=== PATIENT | female | born 1955 | race Two or more races ===

== ENCOUNTER 2024-04-17 13:54 | Inpatient (IN) | payer OTHER, MEDICAID ==
[~2024-04-17] VITALS: Ht 157.5 cm; Wt 74.4 kg
[2024-04-17] MEDS: SODIUM CHLORIDE 0.9% 500 ML IVB ONE (15:02)
[2024-04-17] MEDS: ONDANSETRON HCL 4 MG/2 ML VIAL IV ONE (15:27)
[2024-04-17] MEDS: MORPHINE SULFATE 4 MG/ML SYR/VIAL IV ONE (15:28)
[2024-04-17 15:57] LABS: Basophils # (auto) 0 10 ^3/uL (0-0.2); Basophils % (auto) 0.1 % (0.0-2.0); Eosinophils # (auto) 0 10 ^3/uL (0-0.8); Eosinophils % (auto) 0.1 % (0.0-7.0); Hematocrit 37.4 % (36.0-46.0); Hemoglobin 12.3 g/dL (12.2-16.2); Lymphocytes # (auto) 1.8 10 ^3/uL (0.4-5.4); Lymphocytes % (auto) 10.6 % (10.0-50.0); Mean Corpuscular Hemoglobin 29.7 pg (28.0-32.0); Mean Corpuscular Hgb Conc. 32.8 g/dL (32.0-36.0); Mean Corpuscular Volume 90.3 fL (80.0-100.0); Monocytes # (auto) 0.6 10 ^3/uL (0-1.3); Monocytes % (auto) 3.5 % (0.0-12.0); Neutrophils # (auto) 14.2 10 ^3/uL (1.6-8.6); Neutrophils % (auto) 85.7 % (37.0-80.0); Nucleated Red Blood Cells % 0.1 %; Platelet Count (auto) 274 10^3/uL (140-450); Red Blood Cells 4.14 10^6/uL (4.0-5.20); Red Cell Distribution Width 15.9 % (11.8-14.3); White Blood Cell 16.5 10^3/uL (4.4-10.8)
[2024-04-17 16:01] LABS: Chloride 107 mmol/L (98-107); Potassium 3.9 mmol/L (3.5-5.1); Sodium 140 mmol/L (136-145)
[2024-04-17 16:02] LABS: Anion Gap 7 (5-15); Carbon Dioxide 26 mmol/L (20-30)
[2024-04-17 16:02] LABS: Urine Bacteria FEW /hpf (None Seen); Urine Blood Negative /uL (Negative); Urine Clarity Ex.Turbid (Clear); Urine Color Orange (Yellow); Urine Mucus MANY (None Seen); Urine Protein, UAD 1+ (Negative); Urine Specific Gravity 1.037 (1.001-1.035); Urine Urobilinogen 2 mg/dL (Negative); Urine WBC 14 /hpf (0 - 5); Urine pH 5.5 (5.0-9.0)
[2024-04-17 16:03] LABS: Calcium 9.8 mg/dL (8.7-10.4)
[2024-04-17 16:07] LABS: Glucose 151 mg/dL (74-106)
[2024-04-17 16:08] LABS: BUN/Creatinine Ratio 25.6 (10.0-20.0); Blood Urea Nitrogen 22 mg/dL (9-23)
[2024-04-17 17:57] LABS: INR 1.03 (0.9-1.15); Partial Thromboplastin Time 27.5 SEC (24.5-34.5); Prothrombin Time 10.9 sec (9.3-11.8)
[2024-04-17] MEDS: SODIUM CHLORIDE 0.9% 1,000 ML IV ONE (18:22)
[2024-04-17] MEDS: PIPERACILLIN-TAZOB 3.375GM 100 ML IV ONE (18:22)
[2024-04-17] MEDS ORDERED: NITROGLYCERIN 0.4 MG SL TAB SL PRN (20:30)
[2024-04-17] MEDS ORDERED: MORPHINE SULFATE INJ 2 MG/ml SYRG IV PRN (20:30)
[2024-04-17] MEDS ORDERED: DEXTROSE (50%) 50ML SYRG IV PRN (21:30)
[2024-04-17] MEDS: SODIUM CHLORIDE 0.9% 1,000 ML IV SCH (22:03)
[2024-04-18] VITALS (9 sets, daily range): BP systolic 100–141; BP diastolic 48–89; PULSE 70–120; RESP 16–19; TEMP 97.8–100.4; O2SAT 90–93
[2024-04-18] MEDS: ACCU-CHEK COMFORT CURVE STRIP VI SCH ×2 (00:55→17:00)
[2024-04-18] MEDS: PIPERACILLIN-TAZOB 3.375GM 100 ML IV SCH (02:20)
[2024-04-18 04:47] LABS: Basophils # (auto) 0 10 ^3/uL (0-0.2); Basophils % (auto) 0.2 % (0.0-2.0); Eosinophils # (auto) 0.1 10 ^3/uL (0-0.8); Eosinophils % (auto) 0.3 % (0.0-7.0); Hematocrit 38.1 % (36.0-46.0); Hemoglobin 12.3 g/dL (12.2-16.2); Lymphocytes # (auto) 2.2 10 ^3/uL (0.4-5.4); Lymphocytes % (auto) 12.8 % (10.0-50.0); Mean Corpuscular Hemoglobin 29.8 pg (28.0-32.0); Mean Corpuscular Hgb Conc. 32.4 g/dL (32.0-36.0); Monocytes # (auto) 0.8 10 ^3/uL (0-1.3); Monocytes % (auto) 4.5 % (0.0-12.0); Neutrophils # (auto) 14.2 10 ^3/uL (1.6-8.6); Neutrophils % (auto) 82.2 % (37.0-80.0); Nucleated Red Blood Cells % 0.1 %; Platelet Count (auto) 283 10^3/uL (140-450); Red Blood Cells 4.14 10^6/uL (4.0-5.20); Red Cell Distribution Width 16.1 % (11.8-14.3); White Blood Cell 17.2 10^3/uL (4.4-10.8)
[2024-04-18] MEDS ORDERED: LISI40TA16 PO (05:02)
[2024-04-18] MEDS ORDERED: LEVO25TA6 PO (05:03)
[2024-04-18 05:04] LABS: Alanine Aminotransferase 36 U/L (7-40); Albumin 3.7 g/dL (3.2-4.8); Alkaline Phosphatase 79 U/L (46-116); Anion Gap 6 (5-15); Aspartate Aminotransferase 10 U/L (13-40); BUN/Creatinine Ratio 28.3 (10.0-20.0); Blood Urea Nitrogen 30 mg/dL (9-23); Calcium 9.8 mg/dL (8.7-10.4); Carbon Dioxide 27 mmol/L (20-30); Chloride 108 mmol/L (98-107); Glucose 121 mg/dL (74-106); Potassium 4.3 mmol/L (3.5-5.1); Sodium 141 mmol/L (136-145)
[2024-04-18 05:05] LABS: Bilirubin, Total 1.4 mg/dL (0.2-1.0)
[2024-04-18 05:07] LABS: INR 1.09 (0.9-1.15); Prothrombin Time 11.5 sec (9.3-11.8)
[2024-04-18] MEDS: MORPHINE SULFATE INJ 2 MG/ml SYRG IV PRN (05:36)
[2024-04-18] MEDS: PANTOPRAZOLE 40 MG/10 ML VIAL INJ IV SCH (09:31)
[2024-04-18] MEDS ORDERED: TPN PER PHARMACY 0 ML IV SCH (13:30)
[2024-04-18] MEDS ORDERED: DEXTROSE (50%) 50ML SYRG IV SCH (15:15)
[2024-04-18] MEDS: InsuLIN REG 1unit/0.01ml Soln (100units/ml) SC SCH (17:15)
[2024-04-18] MEDS: AMINO ACID INFUSION IN D5W 2,000 ML IV NR (20:09)
[2024-04-19] VITALS (9 sets, daily range): BP systolic 106–142; BP diastolic 48–78; PULSE 90–115; RESP 16–19; TEMP 98–100.6; O2SAT 90–98
[2024-04-19 06:31] LABS: Basophils # (auto) 0.1 10 ^3/uL (0-0.2); Basophils % (auto) 0.5 % (0.0-2.0); Eosinophils # (auto) 0 10 ^3/uL (0-0.8); Eosinophils % (auto) 0.3 % (0.0-7.0); Hematocrit 33.5 % (36.0-46.0); Hemoglobin 10.8 g/dL (12.2-16.2); Lymphocytes # (auto) 1.6 10 ^3/uL (0.4-5.4); Lymphocytes % (auto) 11.1 % (10.0-50.0); Mean Corpuscular Hemoglobin 29.4 pg (28.0-32.0); Mean Corpuscular Hgb Conc. 32.2 g/dL (32.0-36.0); Mean Corpuscular Volume 91.3 fL (80.0-100.0); Monocytes # (auto) 0.7 10 ^3/uL (0-1.3); Monocytes % (auto) 5.2 % (0.0-12.0); Neutrophils # (auto) 11.8 10 ^3/uL (1.6-8.6); Neutrophils % (auto) 82.9 % (37.0-80.0); Platelet Count (auto) 243 10^3/uL (140-450); Red Blood Cells 3.67 10^6/uL (4.0-5.20); Red Cell Distribution Width 15.8 % (11.8-14.3); White Blood Cell 14.2 10^3/uL (4.4-10.8)
[2024-04-19 06:43] LABS: Triglycerides 209 mg/dL (< 150)
[2024-04-19 06:44] LABS: Alanine Aminotransferase 30 U/L (7-40); Albumin 3.2 g/dL (3.2-4.8); Alkaline Phosphatase 96 U/L (46-116); Anion Gap 7 (5-15); Aspartate Aminotransferase 18 U/L (13-40); Bilirubin, Total 1.4 mg/dL (0.2-1.0); Blood Urea Nitrogen 25 mg/dL (9-23); Calcium 8.9 mg/dL (8.5-10.1); Carbon Dioxide 26 mmol/L (20-30); Chloride 108 mmol/L (98-107); Cholesterol 127 mg/dL (< 200); Glucose 142 mg/dL (74-106); HDL Cholesterol 20 mg/dL (40-59); LDL Cholesterol 61 mg/dL (< 100); Magnesium 1.9 mg/dL (1.6-2.6); Potassium 3.5 mmol/L (3.5-5.1); Sodium 141 mmol/L (136-145); Total Protein 5.2 g/dL (5.7-8.2)
[2024-04-19] MEDS: POTASSIUM PHOSPHATE 22 MEQ in SODIUM CHL 0.9% 100 ML IV ONE (13:46)
[2024-04-19] MEDS: PPN PER PHARMACY IV NR (20:10)
[2024-04-20] VITALS (10 sets, daily range): BP systolic 110–150; BP diastolic 58–82; PULSE 88–99; RESP 18–21; TEMP 97.8–99.3; O2SAT 95–99
[2024-04-20 07:05] LABS: Basophils # (auto) 0 10 ^3/uL (0-0.2); Basophils % (auto) 0.2 % (0.0-2.0); Eosinophils # (auto) 0.1 10 ^3/uL (0-0.8); Eosinophils % (auto) 0.5 % (0.0-7.0); Hematocrit 30.8 % (36.0-46.0); Hemoglobin 10.3 g/dL (12.2-16.2); Lymphocytes % (auto) 9.3 % (10.0-50.0); Mean Corpuscular Hemoglobin 30.4 pg (28.0-32.0); Mean Corpuscular Hgb Conc. 33.5 g/dL (32.0-36.0); Mean Corpuscular Volume 90.9 fL (80.0-100.0); Monocytes # (auto) 0.7 10 ^3/uL (0-1.3); Monocytes % (auto) 6.6 % (0.0-12.0); Neutrophils # (auto) 8.9 10 ^3/uL (1.6-8.6); Neutrophils % (auto) 83.4 % (37.0-80.0); Platelet Count (auto) 231 10^3/uL (140-450); Red Blood Cells 3.39 10^6/uL (4.0-5.20); Red Cell Distribution Width 15.5 % (11.8-14.3); White Blood Cell 10.7 10^3/uL (4.4-10.8)
[2024-04-20 07:23] LABS: Alanine Aminotransferase 28 U/L (7-40); Albumin 3.1 g/dL (3.2-4.8); Alkaline Phosphatase 114 U/L (46-116); Anion Gap 3 (5-15); Aspartate Aminotransferase 17 U/L (13-40); BUN/Creatinine Ratio 20.8 (10.0-20.0); Bilirubin, Total 0.9 mg/dL (0.2-1.0); Blood Urea Nitrogen 15 mg/dL (9-23); Calcium 8.8 mg/dL (8.5-10.1); Carbon Dioxide 29 mmol/L (20-30); Chloride 105 mmol/L (98-107); Glucose 158 mg/dL (74-106); Magnesium 1.7 mg/dL (1.6-2.6); Phosphorus 2.1 mg/dL (2.4-5.1); Potassium 3.3 mmol/L (3.5-5.1); Sodium 137 mmol/L (136-145); Total Protein 5.2 g/dL (5.7-8.2)
[2024-04-20] MEDS: IOHEXOL 300 MG/ML 100ML BOTTLE IJ ONE (12:52)
[2024-04-20] MEDS: POTASSIUM PHOSPHATE 22 MEQ in SODIUM CHL 0.9% 100 ML IV ONE (14:57)
[2024-04-20] MEDS: PPN PER PHARMACY IV NR (23:28)
[2024-04-21] VITALS (9 sets, daily range): BP systolic 119–146; BP diastolic 65–74; PULSE 71–102; RESP 18–21; TEMP 97.9–101.5; O2SAT 95–98
[2024-04-21 05:15] LABS: Hematocrit 30.5 % (36.0-46.0); Hemoglobin 10.1 g/dL (12.2-16.2); Mean Corpuscular Volume 90.7 fL (80.0-100.0); Platelet Count (auto) 249 10^3/uL (140-450); Red Blood Cells 3.36 10^6/uL (4.0-5.20); Red Cell Distribution Width 15.8 % (11.8-14.3)
[2024-04-21 05:16] LABS: Alanine Aminotransferase 25 U/L (7-40); Albumin 3.2 g/dL (3.2-4.8); Alkaline Phosphatase 113 U/L (46-116); Anion Gap 4 (5-15); Aspartate Aminotransferase 17 U/L (13-40); BUN/Creatinine Ratio 18.3 (10.0-20.0); Bilirubin, Total 0.7 mg/dL (0.2-1.0); Blood Urea Nitrogen 11 mg/dL (9-23); Calcium 8.7 mg/dL (8.5-10.1); Carbon Dioxide 30 mmol/L (20-30); Chloride 101 mmol/L (98-107); Glucose 141 mg/dL (74-106); Magnesium 1.6 mg/dL (1.6-2.6); Phosphorus 2.5 mg/dL (2.4-5.1); Potassium 3.1 mmol/L (3.5-5.1); Sodium 135 mmol/L (136-145); Total Protein 5.3 g/dL (5.7-8.2)
[2024-04-21 05:19] LABS: Basophils % (manual) 0 (0.0-2.0); Blast Cells 0; Eosinophils % (manual) 0 (0-7); Metamyelocytes % 0; Myelocytes % 0; Promyelocytes % 0; Reactive Lymphocytes 0
[2024-04-21 09:16] LABS: Band Neutrophils % (manual) 5; Lymphocytes % (manual) 19 (10.0-50.0); Monocytes % (manual) 1 (0-12); Platelet Estimate Adequate
[2024-04-21] MEDS: POTASSIUM PHOSPHATE 22 MEQ in SODIUM CHL 0.9% 100 ML IV ONE (11:38)
[2024-04-21] MEDS: LIDOCAINE 1% (LOCAL ANESTH.) PF 5ml SDV ID ONE (16:00)
[2024-04-21] MEDS: PPN PER PHARMACY IV NR (20:46)
[2024-04-21] MEDS: SODIUM CHLOR 0.9% PF (SALINE LOCK) 10ML VIAL/SYR IV SCH (21:57)
[2024-04-22] VITALS (8 sets, daily range): BP systolic 115–137; BP diastolic 62–87; PULSE 68–106; RESP 16–23; TEMP 97.9–101.5; O2SAT 95–98
[2024-04-22 06:50] LABS: Alanine Aminotransferase 29 U/L (7-40); Alkaline Phosphatase 107 U/L (46-116); Anion Gap 9 (5-15); BUN/Creatinine Ratio 22.4 (10.0-20.0); Blood Urea Nitrogen 13 mg/dL (9-23); Calcium 8.4 mg/dL (8.7-10.4); Carbon Dioxide 31 mmol/L (20-30); Chloride 97 mmol/L (98-107); Glucose 163 mg/dL (74-106); Magnesium 1.7 mg/dL (1.6-2.6); Potassium 2.9 mmol/L (3.5-5.1); Sodium 137 mmol/L (136-145)
[2024-04-22 06:51] LABS: Aspartate Aminotransferase 23 U/L (13-40); Phosphorus 2.5 mg/dL (2.4-5.1)
[2024-04-22 06:52] LABS: Bilirubin, Total 0.6 mg/dL (0.2-1.0); Total Protein 5.1 g/dL (5.7-8.2)
[2024-04-22] MEDS: POTASSIUM CHL 20MEQ/100ML 100 ML IV SCH (12:55)
[2024-04-22] MEDS: POTASSIUM PHOSPHATE 22 MEQ in SODIUM CHL 0.9% 100 ML IV ONE (17:41)
[2024-04-22] MEDS: SODIUM CHLORIDE 0.9% 1,000 ML IV SCH (20:00)
[2024-04-22] MEDS: PPN PER PHARMACY IV NR (20:13)
[2024-04-23] VITALS (9 sets, daily range): BP systolic 112–145; BP diastolic 53–80; PULSE 73–100; RESP 16–20; TEMP 97–101.9; O2SAT 93–100
[2024-04-23 06:16] LABS: Calcium 8.3 mg/dL (8.5-10.1)
[2024-04-23 06:21] LABS: Magnesium 1.9 mg/dL (1.6-2.6)
[2024-04-23 06:23] LABS: Albumin 3.1 g/dL (3.2-4.8); Phosphorus 1.9 mg/dL (2.4-5.1)
[2024-04-23 08:16] LABS: BUN/Creatinine Ratio 17.5 (10.0-20.0)
[2024-04-23] MEDS: POTASSIUM CHL 20MEQ/100ML 100 ML IV ONE ×2 (11:55→14:27)
[2024-04-23] MEDS: POTASSIUM PHOSPHATE 22 MEQ in SODIUM CHL 0.9% 100 ML IV ONE (15:46)
[2024-04-23] MEDS: PPN PER PHARMACY IV NR (20:00)
[2024-04-24] VITALS (7 sets, daily range): BP systolic 113–134; BP diastolic 56–72; PULSE 58–157; RESP 17–20; TEMP 98.9–100.1; O2SAT 96–100
[2024-04-24] MEDS: dilTIAZem 25 MG/5 ML VIAL IV ONE (04:04)
[2024-04-24 07:37] LABS: Alanine Aminotransferase 23 U/L (7-40); Alkaline Phosphatase 100 U/L (46-116); Anion Gap 4 (5-15); Calcium 8.1 mg/dL (8.5-10.1); Carbon Dioxide 31 mmol/L (20-30); Chloride 98 mmol/L (98-107); Potassium 3.7 mmol/L (3.5-5.1); Sodium 133 mmol/L (136-145)
[2024-04-24 07:38] LABS: Aspartate Aminotransferase 21 U/L (13-40); BUN/Creatinine Ratio 16.7 (10.0-20.0); Blood Urea Nitrogen 9 mg/dL (9-23); Glucose 172 mg/dL (74-106)
[2024-04-24 07:39] LABS: Albumin 3.1 g/dL (3.2-4.8); Magnesium 1.9 mg/dL (1.6-2.6)
[2024-04-24 07:40] LABS: Bilirubin, Total 0.4 mg/dL (0.2-1.0); Phosphorus 1.7 mg/dL (2.4-5.1); Total Protein 5.1 g/dL (5.7-8.2)
[2024-04-24] MEDS: IOHEXOL 300 MG/ML 100ML BOTTLE IJ ONE (08:36)
[2024-04-24] MEDS: SODIUM PHOSPHATES 24 MEQ in SODIUM CHL 0.9% 100 ML IV ONE (11:33)
[2024-04-24] MEDS: METOPROLOL TARTRATE 1MG/1ML-5ML VIAL IV PRN (13:12)
[2024-04-24] MEDS: TPN PER PHARMACY IV NR (21:14)
[2024-04-25] VITALS (8 sets, daily range): BP systolic 107–156; BP diastolic 40–69; PULSE 88–111; RESP 18–21; TEMP 98–99; O2SAT 97–98
[2024-04-25 07:48] LABS: Alanine Aminotransferase 21 U/L (7-40); Alkaline Phosphatase 94 U/L (46-116); Anion Gap 7 (5-15); Aspartate Aminotransferase 20 U/L (13-40); BUN/Creatinine Ratio 16.7 (10.0-20.0); Bilirubin, Total 0.4 mg/dL (0.2-1.0); Blood Urea Nitrogen 10 mg/dL (9-23); Carbon Dioxide 31 mmol/L (20-30); Chloride 98 mmol/L (98-107); Glucose 173 mg/dL (74-106); Magnesium 1.8 mg/dL (1.6-2.6); Phosphorus 1.7 mg/dL (2.4-5.1); Potassium 3.7 mmol/L (3.5-5.1); Sodium 136 mmol/L (136-145); Total Protein 5.2 g/dL (5.7-8.2)
[2024-04-25] MEDS: POTASSIUM PHOSPHATE 22 MEQ in SODIUM CHL 0.9% 100 ML IV ONE (11:31)
[2024-04-25] MEDS: TPN PER PHARMACY IV NR (21:12)
[2024-04-25] MEDS: ENOXAPARIN SOD 100 MG/1 ML SYRINGE SC SCH (23:05)
[2024-04-26] VITALS (8 sets, daily range): BP systolic 116–147; BP diastolic 51–70; PULSE 86–120; RESP 19–22; TEMP 98.1–102.3; O2SAT 95–99
[2024-04-26] MEDS: ACETAMINOPHEN 325 MG TAB PO PRN (01:11)
[2024-04-26 08:04] LABS: Alanine Aminotransferase 19 U/L (7-40); Alkaline Phosphatase 94 U/L (46-116); Anion Gap 1 (5-15); BUN/Creatinine Ratio 15.5 (10.0-20.0); Blood Urea Nitrogen 9 mg/dL (9-23); Carbon Dioxide 31 mmol/L (20-30); Chloride 102 mmol/L (98-107); Glucose 199 mg/dL (74-106); Magnesium 2.1 mg/dL (1.6-2.6); Potassium 3.7 mmol/L (3.5-5.1); Sodium 134 mmol/L (136-145)
[2024-04-26 08:06] LABS: Albumin 3.1 g/dL (3.2-4.8); Aspartate Aminotransferase 19 U/L (13-40); Bilirubin, Total 0.5 mg/dL (0.2-1.0); Phosphorus 2.4 mg/dL (2.4-5.1); Total Protein 5.2 g/dL (5.7-8.2)
[2024-04-26] MEDS: OMNIPAQUE 12mg/ml 500ml ORAL SOLUTION PO ONE (08:09)
[2024-04-26] MEDS: IOHEXOL 300 MG/ML 100ML BOTTLE IJ ONE ×2 (10:08→13:08)
[2024-04-26] MEDS: SODIUM PHOSPHATES 20 MEQ in SODIUM CHL 0.9% 100 ML IV ONE (10:56)
[2024-04-26] MEDS: TPN PER PHARMACY IV NR (20:00)
[2024-04-27] VITALS (8 sets, daily range): BP systolic 99–159; BP diastolic 52–79; PULSE 74–120; RESP 18–22; TEMP 98.4–101.9; O2SAT 94–95
[2024-04-27 07:10] LABS: Alanine Aminotransferase 21 U/L (7-40); Albumin 3.5 g/dL (3.2-4.8); Alkaline Phosphatase 101 U/L (46-116); Anion Gap 6 (5-15); Aspartate Aminotransferase 20 U/L (13-40); BUN/Creatinine Ratio 14.5 (10.0-20.0); Bilirubin, Total 0.5 mg/dL (0.2-1.0); Blood Urea Nitrogen 9 mg/dL (9-23); Calcium 8.5 mg/dL (8.5-10.1); Carbon Dioxide 26 mmol/L (20-30); Chloride 102 mmol/L (98-107); Glucose 178 mg/dL (74-106); Magnesium 2.1 mg/dL (1.6-2.6); Phosphorus 2.6 mg/dL (2.4-5.1); Potassium 3.7 mmol/L (3.5-5.1); Sodium 134 mmol/L (136-145); Total Protein 5.7 g/dL (5.7-8.2); Triglycerides 161 mg/dL (< 150)
[2024-04-27 10:47] LABS: Hemoglobin 9.9 g/dL (12.2-16.2)
[2024-04-27 10:50] LABS: Hematocrit 30.8 % (36.0-46.0); Mean Corpuscular Hemoglobin 29.2 pg (28.0-32.0); Mean Corpuscular Hgb Conc. 32.3 g/dL (32.0-36.0); Mean Corpuscular Volume 90.5 fL (80.0-100.0); Platelet Count (auto) 504 10^3/uL (140-450); Red Blood Cells 3.41 10^6/uL (4.0-5.20); Red Cell Distribution Width 16.1 % (11.8-14.3)
[2024-04-27 11:04] LABS: Basophils % (manual) 0 (0.0-2.0); Blast Cells 0; Eosinophils % (manual) 0 (0-7); Myelocytes % 0; Promyelocytes % 0; Reactive Lymphocytes 0
[2024-04-27 11:27] LABS: Band Neutrophils % (manual) 1; Lymphocytes % (manual) 12 (10.0-50.0); Metamyelocytes % 1; Monocytes % (manual) 6 (0-12); Platelet Estimate Increased
[2024-04-27 11:28] LABS: RBC Morphology Normal
[2024-04-27] MEDS: OMNIPAQUE 12mg/ml 500ml ORAL SOLUTION PO ONE (13:55)
[2024-04-27] MEDS ORDERED: TPN PER PHARMACY IV NR (20:00)
[2024-04-27] MEDS: TPN PER PHARMACY IV NR (20:32)
[2024-04-28] VITALS (8 sets, daily range): BP systolic 112–187; BP diastolic 53–90; PULSE 73–108; RESP 18–20; TEMP 98.7–100.4; O2SAT 91–97
[2024-04-28 04:40] LABS: Alanine Aminotransferase 23 U/L (7-40); Albumin 3.3 g/dL (3.2-4.8); Alkaline Phosphatase 100 U/L (46-116); Anion Gap 6 (5-15); Aspartate Aminotransferase 38 U/L (13-40); BUN/Creatinine Ratio 14.5 (10.0-20.0); Blood Urea Nitrogen 8 mg/dL (9-23); Carbon Dioxide 23 mmol/L (20-30); Chloride 106 mmol/L (98-107); Glucose 162 mg/dL (74-106); Magnesium 2.2 mg/dL (1.6-2.6); Potassium 4.3 mmol/L (3.5-5.1); Sodium 135 mmol/L (136-145)
[2024-04-28 04:41] LABS: Bilirubin, Total 0.4 mg/dL (0.2-1.0); Phosphorus 2.3 mg/dL (2.4-5.1); Total Protein 5.7 g/dL (5.7-8.2)
[2024-04-28 04:42] LABS: INR 1.09 (0.9-1.15); Prothrombin Time 11.5 sec (9.3-11.8)
[2024-04-28] MEDS: MIDAZOLAM HCL 2MG/2ML 2ml VIAL (1mg/ml) ONE (09:10)
[2024-04-28] MEDS: fentaNYL CITRATE 100 MCG/2 ML VL ONE (09:10)
[2024-04-28] MEDS: LIDOCAINE 2%HCL (LOCAL ANESTH.) INJ 10ml MDV ONE (09:19)
[2024-04-28] MEDS: IOHEXOL 300 MG/ML 100ML BOTTLE IJ ONE (09:21)
[2024-04-28] MEDS: SODIUM PHOSPHATES 20 MEQ in SODIUM CHL 0.9% 100 ML IV ONE (11:13)
[2024-04-28] MEDS: TPN PER PHARMACY IV NR (20:44)
[2024-04-29] VITALS (8 sets, daily range): BP systolic 105–128; BP diastolic 53–73; PULSE 94–103; RESP 16–20; TEMP 98.2–98.9; O2SAT 94–97
[2024-04-29 06:26] LABS: Alanine Aminotransferase 26 U/L (7-40); Alkaline Phosphatase 96 U/L (46-116); Anion Gap 5 (5-15); BUN/Creatinine Ratio 17.5 (10.0-20.0); Blood Urea Nitrogen 10 mg/dL (9-23); Calcium 8.1 mg/dL (8.5-10.1); Carbon Dioxide 29 mmol/L (20-30); Chloride 104 mmol/L (98-107); Glucose 175 mg/dL (74-106); Magnesium 2.2 mg/dL (1.6-2.6); Sodium 138 mmol/L (136-145)
[2024-04-29 06:28] LABS: Albumin 3.1 g/dL (3.2-4.8); Aspartate Aminotransferase 34 U/L (13-40); Bilirubin, Total 0.3 mg/dL (0.2-1.0); Phosphorus 2.5 mg/dL (2.4-5.1); Total Protein 5.3 g/dL (5.7-8.2)
[2024-04-29] MEDS: TPN PER PHARMACY IV NR (20:20)
[2024-04-30] VITALS (8 sets, daily range): BP systolic 117–156; BP diastolic 47–80; PULSE 86–102; RESP 19–22; TEMP 97.7–98.8; O2SAT 96–100
[2024-04-30 09:55] LABS: Chloride 107 mmol/L (98-107); Potassium 4.1 mmol/L (3.5-5.1); Sodium 138 mmol/L (136-145)
[2024-04-30 09:58] LABS: Anion Gap 1 (5-15); Calcium 8.3 mg/dL (8.5-10.1); Carbon Dioxide 30 mmol/L (20-30)
[2024-04-30 10:03] LABS: Alkaline Phosphatase 103 U/L (46-116); Blood Urea Nitrogen 10 mg/dL (9-23); Glucose 145 mg/dL (74-106); Magnesium 2.1 mg/dL (1.6-2.6)
[2024-04-30 10:04] LABS: Alanine Aminotransferase 23 U/L (7-40)
[2024-04-30 10:05] LABS: Albumin 3.1 g/dL (3.2-4.8); Aspartate Aminotransferase 27 U/L (13-40); Bilirubin, Total 0.2 mg/dL (0.2-1.0); Phosphorus 2.9 mg/dL (2.4-5.1); Total Protein 5.3 g/dL (5.7-8.2)
[2024-04-30] MEDS: TPN PER PHARMACY IV NR (19:58)
[2024-05-01] VITALS (8 sets, daily range): BP systolic 119–150; BP diastolic 53–74; PULSE 99–109; RESP 17–20; TEMP 97.9–101.9; O2SAT 93–96
[2024-05-01 07:20] LABS: Hemoglobin 8.6 g/dL (12.2-16.2)
[2024-05-01 07:24] LABS: Hematocrit 26.1 % (36.0-46.0); Mean Corpuscular Hgb Conc. 33.1 g/dL (32.0-36.0); Mean Corpuscular Volume 87.9 fL (80.0-100.0); Platelet Count (auto) 729 10^3/uL (140-450); Red Blood Cells 2.97 10^6/uL (4.0-5.20); Red Cell Distribution Width 15.9 % (11.8-14.3); White Blood Cell 14.4 10^3/uL (4.4-10.8)
[2024-05-01 07:37] LABS: Basophils % (manual) 0 (0.0-2.0); Blast Cells 0; Eosinophils % (manual) 0 (0-7); Myelocytes % 0; Promyelocytes % 0; Reactive Lymphocytes 0
[2024-05-01 07:55] LABS: Alanine Aminotransferase 21 U/L (7-40); Albumin 3.2 g/dL (3.2-4.8); Alkaline Phosphatase 127 U/L (46-116); Anion Gap 5 (5-15); Aspartate Aminotransferase 29 U/L (13-40); BUN/Creatinine Ratio 19.6 (10.0-20.0); Bilirubin, Total 0.2 mg/dL (0.2-1.0); Blood Urea Nitrogen 9 mg/dL (9-23); Calcium 8.5 mg/dL (8.5-10.1); Carbon Dioxide 29 mmol/L (20-30); Chloride 103 mmol/L (98-107); Glucose 131 mg/dL (74-106); Magnesium 1.9 mg/dL (1.6-2.6); Phosphorus 3.7 mg/dL (2.4-5.1); Potassium 4.2 mmol/L (3.5-5.1); Sodium 137 mmol/L (136-145); Total Protein 5.5 g/dL (5.7-8.2)
[2024-05-01 08:21] LABS: Lymphocytes % (manual) 14 (10.0-50.0); Metamyelocytes % 1; Monocytes % (manual) 8 (0-12)
[2024-05-01 08:22] LABS: Band Neutrophils % (manual) 6
[2024-05-01 08:23] LABS: Anisocytosis Slight; Platelet Estimate Increased
[2024-05-01 08:24] LABS: Large Platelets FEW
[2024-05-01] MEDS: PIPERACILLIN-TAZOB 3.375GM 100 ML IV SCH (14:31)
[2024-05-01] MEDS: TPN PER PHARMACY IV NR (20:01)
[2024-05-02] VITALS (8 sets, daily range): BP systolic 100–146; BP diastolic 40–68; PULSE 84–116; RESP 17–20; TEMP 98.6–100.1; O2SAT 93–97
[2024-05-02 07:12] LABS: Alanine Aminotransferase 21 U/L (7-40); Albumin 3.3 g/dL (3.2-4.8); Alkaline Phosphatase 130 U/L (46-116); Anion Gap 2 (5-15); Aspartate Aminotransferase 26 U/L (13-40); BUN/Creatinine Ratio 17.7 (10.0-20.0); Bilirubin, Total 0.4 mg/dL (0.2-1.0); Blood Urea Nitrogen 11 mg/dL (9-23); Calcium 9.2 mg/dL (8.7-10.4); Carbon Dioxide 32 mmol/L (20-30); Chloride 101 mmol/L (98-107); Glucose 138 mg/dL (74-106); Magnesium 1.9 mg/dL (1.6-2.6); Phosphorus 3.7 mg/dL (2.4-5.1); Potassium 4.4 mmol/L (3.5-5.1); Sodium 135 mmol/L (136-145)
[2024-05-02] MEDS: TPN PER PHARMACY IV NR (20:37)
[2024-05-03] VITALS (8 sets, daily range): BP systolic 102–146; BP diastolic 51–75; PULSE 93–108; RESP 16–21; TEMP 98.5–99.8; O2SAT 95–98
[2024-05-03 06:38] LABS: Anion Gap 4 (5-15); Carbon Dioxide 29 mmol/L (20-30); Chloride 104 mmol/L (98-107); Potassium 4.2 mmol/L (3.5-5.1); Sodium 137 mmol/L (136-145)
[2024-05-03 06:44] LABS: Blood Urea Nitrogen 11 mg/dL (9-23); Glucose 138 mg/dL (74-106)
[2024-05-03 06:48] LABS: Mean Corpuscular Volume 88.9 fL (80.0-100.0)
[2024-05-03 06:50] LABS: Hematocrit 26.7 % (36.0-46.0); Hemoglobin 9.1 g/dL (12.2-16.2); Mean Corpuscular Hemoglobin 30.2 pg (28.0-32.0); Red Blood Cells 3.01 10^6/uL (4.0-5.20); Red Cell Distribution Width 16.3 % (11.8-14.3); White Blood Cell 17.6 10^3/uL (4.4-10.8)
[2024-05-03 06:57] LABS: Platelet Count (auto) 766 10^3/uL (140-450)
[2024-05-03 06:58] LABS: Basophils % (manual) 0 (0.0-2.0); Blast Cells 0; Metamyelocytes % 0; Myelocytes % 0; Promyelocytes % 0; Reactive Lymphocytes 0
[2024-05-03 08:14] LABS: Band Neutrophils % (manual) 10; Eosinophils % (manual) 1 (0-7); Lymphocytes % (manual) 15 (10.0-50.0); Monocytes % (manual) 6 (0-12)
[2024-05-03 08:15] LABS: Platelet Estimate Markedly Increased
[2024-05-03] MEDS: TPN PER PHARMACY IV NR (20:58)
[2024-05-04] VITALS (8 sets, daily range): BP systolic 106–143; BP diastolic 60–77; PULSE 92–120; RESP 18–20; TEMP 97.8–100.2; O2SAT 94–98
[2024-05-04 06:30] LABS: Chloride 105 mmol/L (98-107); Potassium 4.2 mmol/L (3.5-5.1); Sodium 139 mmol/L (136-145)
[2024-05-04 06:34] LABS: % Iron Saturation 9.8 % (15-50); Carbon Dioxide 29 mmol/L (20-30)
[2024-05-04 06:35] LABS: Calcium 8.9 mg/dL (8.5-10.1)
[2024-05-04 06:39] LABS: Glucose 119 mg/dL (74-106)
[2024-05-04 06:40] LABS: Alkaline Phosphatase 124 U/L (46-116); BUN/Creatinine Ratio 21.7 (10.0-20.0); Blood Urea Nitrogen 13 mg/dL (9-23); Triglycerides 225 mg/dL (< 150)
[2024-05-04 06:41] LABS: Alanine Aminotransferase 17 U/L (7-40); Albumin 3.3 g/dL (3.2-4.8); Aspartate Aminotransferase 21 U/L (13-40)
[2024-05-04 06:42] LABS: Bilirubin, Total 0.3 mg/dL (0.2-1.0); Phosphorus 3.3 mg/dL (2.4-5.1); Total Protein 5.9 g/dL (5.7-8.2)
[2024-05-04 06:47] LABS: Anion Gap 5 (5-15)
[2024-05-04 11:06] LABS: Red Blood Cells 3.04 10^6/uL (4.0-5.20)
[2024-05-04 11:09] LABS: Hematocrit 26.6 % (36.0-46.0); Hemoglobin 8.7 g/dL (12.2-16.2); Mean Corpuscular Hemoglobin 28.5 pg (28.0-32.0); Mean Corpuscular Hgb Conc. 32.5 g/dL (32.0-36.0); Mean Corpuscular Volume 87.7 fL (80.0-100.0); Red Cell Distribution Width 16.2 % (11.8-14.3); White Blood Cell 14.8 10^3/uL (4.4-10.8)
[2024-05-04 11:21] LABS: Basophils % (manual) 0 (0.0-2.0); Blast Cells 0; Eosinophils % (manual) 0 (0-7); Platelet Count (auto) 792 10^3/uL (140-450); Promyelocytes % 0; Reactive Lymphocytes 0
[2024-05-04 11:25] LABS: Anion Gap 6 (5-15); Calcium 8.9 mg/dL (8.5-10.1); Carbon Dioxide 28 mmol/L (20-30); Chloride 103 mmol/L (98-107); Potassium 3.9 mmol/L (3.5-5.1); Sodium 137 mmol/L (136-145)
[2024-05-04 11:31] LABS: BUN/Creatinine Ratio 22.8 (10.0-20.0); Blood Urea Nitrogen 13 mg/dL (9-23); Glucose 138 mg/dL (74-106)
[2024-05-04 12:29] LABS: Band Neutrophils % (manual) 15; Lymphocytes % (manual) 11 (10.0-50.0); Metamyelocytes % 3; Monocytes % (manual) 11 (0-12); Myelocytes % 2; Platelet Estimate Markedly Increased
[2024-05-04] MEDS: GASTROGRAFIN 30 ML SOL ONE (15:26)
[2024-05-04 19:09] LABS: Hematocrit 27.4 % (36.0-46.0); Hemoglobin 8.8 g/dL (12.2-16.2); Mean Corpuscular Hemoglobin 28.1 pg (28.0-32.0); Mean Corpuscular Hgb Conc. 32.3 g/dL (32.0-36.0); Mean Corpuscular Volume 87.2 fL (80.0-100.0); Red Blood Cells 3.14 10^6/uL (4.0-5.20); Red Cell Distribution Width 15.9 % (11.8-14.3); White Blood Cell 18.3 10^3/uL (4.4-10.8)
[2024-05-04 19:12] LABS: Chloride 104 mmol/L (98-107); Potassium 4.1 mmol/L (3.5-5.1); Sodium 136 mmol/L (136-145)
[2024-05-04 19:13] LABS: Anion Gap 6 (5-15); Carbon Dioxide 26 mmol/L (20-30)
[2024-05-04 19:14] LABS: Calcium 9.2 mg/dL (8.7-10.4)
[2024-05-04 19:17] LABS: Platelet Count (auto) 859 10^3/uL (140-450)
[2024-05-04 19:18] LABS: Basophils % (manual) 0 (0.0-2.0); Blast Cells 0; Blood Urea Nitrogen 14 mg/dL (9-23); Eosinophils % (manual) 0 (0-7); Glucose 130 mg/dL (74-106); Promyelocytes % 0; Reactive Lymphocytes 0
[2024-05-04] MEDS: TPN PER PHARMACY IV NR (20:30)
[2024-05-04 20:32] LABS: Band Neutrophils % (manual) 20; Lymphocytes % (manual) 10 (10.0-50.0); Metamyelocytes % 2; Monocytes % (manual) 7 (0-12); Myelocytes % 2; Platelet Estimate Markedly Increased
[2024-05-05] VITALS (8 sets, daily range): BP systolic 119–138; BP diastolic 56–84; PULSE 90–113; RESP 18–20; TEMP 98.4–99.6; O2SAT 90–98
[2024-05-05 06:37] LABS: Alanine Aminotransferase 16 U/L (7-40); Albumin 3.3 g/dL (3.2-4.8); Alkaline Phosphatase 129 U/L (46-116); Anion Gap 5 (5-15); Blood Urea Nitrogen 13 mg/dL (9-23); Calcium 9.1 mg/dL (8.7-10.4); Carbon Dioxide 28 mmol/L (20-30); Chloride 102 mmol/L (98-107); Glucose 130 mg/dL (74-106); Magnesium 1.9 mg/dL (1.6-2.6); Potassium 4.2 mmol/L (3.5-5.1); Sodium 135 mmol/L (136-145)
[2024-05-05 06:38] LABS: Bilirubin, Total 0.4 mg/dL (0.2-1.0); Phosphorus 3.7 mg/dL (2.4-5.1)
[2024-05-05 06:39] LABS: Total Protein 6.2 g/dL (5.7-8.2)
[2024-05-05 07:08] LABS: Aspartate Aminotransferase 21 U/L (13-40)
[2024-05-05] MEDS: DOCUSATE SOD 100 MG CAP PO PRN (09:47)
[2024-05-05] MEDS: GASTROGRAFIN 120 ML SOL ONE (13:41)
[2024-05-05] MEDS: ONDANSETRON HCL 4 MG/2 ML VIAL IV PRN ×2 (14:47→19:11)
[2024-05-05] MEDS: TPN PER PHARMACY IV NR (20:45)
[2024-05-06] VITALS (9 sets, daily range): BP systolic 105–143; BP diastolic 55–85; PULSE 58–102; RESP 16–19; TEMP 97.6–99.5; O2SAT 95–98
[2024-05-06 07:45] LABS: Alanine Aminotransferase 16 U/L (7-40); Alkaline Phosphatase 125 U/L (46-116); Anion Gap 5 (5-15); BUN/Creatinine Ratio 28.3 (10.0-20.0); Blood Urea Nitrogen 17 mg/dL (9-23); Calcium 9.1 mg/dL (8.5-10.1); Carbon Dioxide 31 mmol/L (20-30); Chloride 102 mmol/L (98-107); Glucose 108 mg/dL (74-106); Magnesium 2.1 mg/dL (1.6-2.6); Potassium 4.1 mmol/L (3.5-5.1); Sodium 138 mmol/L (136-145)
[2024-05-06 07:46] LABS: Albumin 3.4 g/dL (3.2-4.8); Aspartate Aminotransferase 18 U/L (13-40); Phosphorus 3.8 mg/dL (2.4-5.1)
[2024-05-06 07:47] LABS: Bilirubin, Total 0.3 mg/dL (0.2-1.0); Total Protein 6.2 g/dL (5.7-8.2)
[2024-05-06] MEDS: TPN PER PHARMACY IV NR (19:44)
[2024-05-07] VITALS (9 sets, daily range): BP systolic 96–137; BP diastolic 58–72; PULSE 75–116; RESP 16–20; TEMP 98.3–99.4; O2SAT 95–98
[2024-05-07 05:53] LABS: Hematocrit 28.8 % (36.0-46.0); Mean Corpuscular Hemoglobin 28.2 pg (28.0-32.0); White Blood Cell 16.3 10^3/uL (4.4-10.8)
[2024-05-07 05:54] LABS: Hemoglobin 9.4 g/dL (12.2-16.2); Mean Corpuscular Hgb Conc. 32.6 g/dL (32.0-36.0); Mean Corpuscular Volume 86.6 fL (80.0-100.0); Red Blood Cells 3.33 10^6/uL (4.0-5.20); Red Cell Distribution Width 16.5 % (11.8-14.3)
[2024-05-07 06:31] LABS: Alanine Aminotransferase 15 U/L (7-40); Albumin 3.5 g/dL (3.2-4.8); Alkaline Phosphatase 127 U/L (46-116); Anion Gap 4 (5-15); Aspartate Aminotransferase 17 U/L (13-40); BUN/Creatinine Ratio 31.7 (10.0-20.0); Blood Urea Nitrogen 20 mg/dL (9-23); Calcium 8.9 mg/dL (8.5-10.1); Carbon Dioxide 30 mmol/L (20-30); Chloride 103 mmol/L (98-107); Glucose 131 mg/dL (74-106); Magnesium 2.1 mg/dL (1.6-2.6); Sodium 137 mmol/L (136-145)
[2024-05-07 06:32] LABS: Bilirubin, Total 0.3 mg/dL (0.2-1.0); Phosphorus 3.5 mg/dL (2.4-5.1); Total Protein 6.5 g/dL (5.7-8.2)
[2024-05-07 06:52] LABS: Platelet Count (auto) 797 10^3/uL (140-450)
[2024-05-07 06:53] LABS: Basophils % (manual) 0 (0.0-2.0); Blast Cells 0; Metamyelocytes % 0; Myelocytes % 0; Promyelocytes % 0; Reactive Lymphocytes 0
[2024-05-07 08:01] LABS: Band Neutrophils % (manual) 6; Eosinophils % (manual) 1 (0-7); Lymphocytes % (manual) 12 (10.0-50.0); Monocytes % (manual) 4 (0-12); Platelet Estimate Markedly Increased
[2024-05-07 10:43] LABS: INR 0.98 (0.9-1.15); Prothrombin Time 10.4 sec (9.3-11.8)
[2024-05-07] MEDS: TPN PER PHARMACY IV NR (19:32)
[2024-05-08] VITALS (38 sets, daily range): BP systolic 83–152; BP diastolic 8–81; PULSE 93–124; RESP 14–19; TEMP 98.6–101.3; O2SAT 91–100
[2024-05-08 06:34] LABS: Alanine Aminotransferase 15 U/L (7-40); Alkaline Phosphatase 112 U/L (46-116); Anion Gap 6 (5-15); BUN/Creatinine Ratio 34.6 (10.0-20.0); Blood Urea Nitrogen 18 mg/dL (9-23); Calcium 8.8 mg/dL (8.7-10.4); Carbon Dioxide 27 mmol/L (20-30); Chloride 106 mmol/L (98-107); Glucose 117 mg/dL (74-106); Potassium 4.4 mmol/L (3.5-5.1); Sodium 139 mmol/L (136-145)
[2024-05-08 06:35] LABS: Albumin 3.2 g/dL (3.2-4.8); Aspartate Aminotransferase 17 U/L (13-40)
[2024-05-08 06:36] LABS: Bilirubin, Total 0.3 mg/dL (0.2-1.0); Phosphorus 3.5 mg/dL (2.4-5.1)
[2024-05-08] MEDS ORDERED: fentaNYL CITRATE 100 MCG/2 ML VL ONE (09:08)
[2024-05-08] MEDS ORDERED: HYDROmorphone HCL 2 MG/ML VL/or syr ONE (09:08)
[2024-05-08] MEDS ORDERED: MIDAZOLAM HCL 2MG/2ML 2ml VIAL (1mg/ml) ONE (09:08)
[2024-05-08] MEDS ORDERED: ePHEDrine SULFATE 50 MG/ML AMP ONE (09:09)
[2024-05-08] MEDS ORDERED: GLYCOPYRROLATE 0.2 MG/ML 1ML VIAL ONE (09:09)
[2024-05-08] MEDS ORDERED: PHENYLEPHRINE HCL 10 MG/ML VL ONE (09:09)
[2024-05-08] MEDS ORDERED: ONDANSETRON HCL 4 MG/2 ML VIAL ONE (09:09)
[2024-05-08] MEDS ORDERED: ROCURONIUM 10MG/ML 10ML VIAL IV ONE (09:09)
[2024-05-08] MEDS ORDERED: LIDOCAINE 2% (LOCAL ANESTH.) PF 5ml SDV ONE (09:09)
[2024-05-08] MEDS ORDERED: KETAMINE 50mg/ML 1ml syringe ONE (09:09)
[2024-05-08] MEDS ORDERED: DexAMETHasone SOD PHOS 10MG/1ML VIAL INJ ONE (09:09)
[2024-05-08] MEDS ORDERED: ETOMIDATE (2MG/ML) 20ML VIAL IV ONE (09:48)
[2024-05-08] MEDS: MIDAZOLAM DRIP 50 mg/50mL 50 ML IV ONE (11:50)
[2024-05-08] MEDS: NOREPINEPHRINE 8 MG/250ML KIT 250 ML IV ONE (11:51)
[2024-05-08] MEDS ORDERED: HYDROmorphone HCL 2 MG/ML VL/or syr IV PRN (12:00)
[2024-05-08] MEDS: ACCU-CHEK COMFORT CURVE STRIP VI ONE (12:00)
[2024-05-08] MEDS ORDERED: fentaNYL CITRATE 100 MCG/2 ML VL IV PRN (12:00)
[2024-05-08] MEDS ORDERED: MIDAZOLAM HCL 2MG/2ML 2ml VIAL (1mg/ml) IV PRN (12:00)
[2024-05-08] MEDS: NOREPINEPHRINE 8 MG/250ML KIT 250 ML IV SCH (12:00)
[2024-05-08 15:06] LABS: Hemoglobin 11.9 g/dL (12.2-16.2); Mean Corpuscular Volume 89.8 fL (80.0-100.0)
[2024-05-08 15:09] LABS: Hematocrit 36.6 % (36.0-46.0); Mean Corpuscular Hemoglobin 29.3 pg (28.0-32.0); Mean Corpuscular Hgb Conc. 32.6 g/dL (32.0-36.0); Platelet Count (auto) 724 10^3/uL (140-450); Red Blood Cells 4.07 10^6/uL (4.0-5.20); Red Cell Distribution Width 16.2 % (11.8-14.3); White Blood Cell 19.8 10^3/uL (4.4-10.8)
[2024-05-08 15:23] LABS: Basophils % (manual) 0 (0.0-2.0); Blast Cells 0; Eosinophils % (manual) 0 (0-7); Metamyelocytes % 0; Myelocytes % 0; Promyelocytes % 0; Reactive Lymphocytes 0
[2024-05-08 15:29] LABS: Alanine Aminotransferase 23 U/L (7-40); Alkaline Phosphatase 122 U/L (46-116); Anion Gap 6 (5-15); Aspartate Aminotransferase 37 U/L (13-40); BUN/Creatinine Ratio 35.3 (10.0-20.0); Blood Urea Nitrogen 18 mg/dL (9-23); Calcium 8.4 mg/dL (8.5-10.1); Carbon Dioxide 24 mmol/L (20-30); Chloride 107 mmol/L (98-107); Glucose 183 mg/dL (74-106); Potassium 4.9 mmol/L (3.5-5.1); Sodium 137 mmol/L (136-145)
[2024-05-08 15:30] LABS: Albumin 3.1 g/dL (3.2-4.8); Bilirubin, Total 0.7 mg/dL (0.2-1.0); Total Protein 5.6 g/dL (5.7-8.2)
[2024-05-08] MEDS ORDERED: PROPOFOL 10 MG/ML 100ML BOTTLE IV ONE (16:00)
[2024-05-08 16:28] LABS: INR 0.98 (0.9-1.15); Prothrombin Time 10.4 sec (9.3-11.8)
[2024-05-08 16:30] LABS: Band Neutrophils % (manual) 10; Lymphocytes % (manual) 21 (10.0-50.0); Monocytes % (manual) 9 (0-12)
[2024-05-08 16:31] LABS: Platelet Estimate Increased
[2024-05-08] MEDS: MIDAZOLAM DRIP 50 mg/50mL 50 ML IV SCH (17:43)
[2024-05-08] MEDS: fentaNYL Drip 2500mCg/250mlNS 250 ML IV SCH (17:44)
[2024-05-08] MEDS: PIPERACILLIN-TAZOB 3.375GM 100 ML IV SCH (18:07)
[2024-05-08 18:34] LABS: Base Excess -2.7 mmol/L (-2.0-2.0)
[2024-05-08] MEDS ORDERED: ACETAMINOPHEN IV 1000 MG/100ML (10MG/ML) IV PRN (20:45)
[2024-05-08] MEDS: TPN PER PHARMACY IV NR (21:05)
[2024-05-09] VITALS (98 sets, daily range): BP systolic 93–137; BP diastolic 36–75; PULSE 92–112; RESP 14–22; TEMP 97.7–101.5; O2SAT 91–99
[2024-05-09 04:22] LABS: Alanine Aminotransferase 20 U/L (7-40); Albumin 2.8 g/dL (3.2-4.8); Alkaline Phosphatase 101 U/L (46-116); Calcium 8.3 mg/dL (8.7-10.4); Carbon Dioxide 25 mmol/L (20-30); Chloride 104 mmol/L (98-107); Glucose 260 mg/dL (74-106)
[2024-05-09 04:23] LABS: Anion Gap 6 (5-15); Aspartate Aminotransferase 19 U/L (13-40); BUN/Creatinine Ratio 41.9 (10.0-20.0); Bilirubin, Total 0.4 mg/dL (0.2-1.0); Blood Urea Nitrogen 18 mg/dL (9-23); Magnesium 1.8 mg/dL (1.6-2.6); Phosphorus 2.6 mg/dL (2.4-5.1); Potassium 4.6 mmol/L (3.5-5.1); Sodium 135 mmol/L (136-145); Total Protein 5.4 g/dL (5.7-8.2)
[2024-05-09] MEDS ORDERED: ROCURONIUM 10MG/ML 10ML VIAL IV ONE (07:08)
[2024-05-09] MEDS ORDERED: HYDROmorphone HCL 2 MG/ML VL/or syr ONE (07:08)
[2024-05-09] MEDS ORDERED: KETAMINE 50mg/ML 1ml syringe ONE (09:59)
[2024-05-09 14:27] LABS: Base Excess -2.2 mmol/L (-2.0-2.0)
[2024-05-09] MEDS ORDERED: HYDROCORTISONE SOD SUCC 100 MG/2ML INJ VIAL IV ONE (14:37)
[2024-05-09] MEDS: TPN PER PHARMACY IV NR (20:16)
[2024-05-10] VITALS (108 sets, daily range): BP systolic 83–129; BP diastolic 36–59; PULSE 95–104; RESP 12–23; TEMP 99.3–100.4; O2SAT 98–100
[2024-05-10 03:31] LABS: Hematocrit 32.3 % (36.0-46.0); Hemoglobin 10.5 g/dL (12.2-16.2); Mean Corpuscular Hemoglobin 28.9 pg (28.0-32.0); Mean Corpuscular Hgb Conc. 32.5 g/dL (32.0-36.0); Mean Corpuscular Volume 89.1 fL (80.0-100.0); Platelet Count (auto) 527 10^3/uL (140-450); Red Blood Cells 3.63 10^6/uL (4.0-5.20); Red Cell Distribution Width 16.6 % (11.8-14.3)
[2024-05-10 03:42] LABS: Alanine Aminotransferase 13 U/L (7-40); Albumin 2.5 g/dL (3.2-4.8); Alkaline Phosphatase 82 U/L (46-116); Anion Gap 3 (5-15); Aspartate Aminotransferase 11 U/L (13-40); BUN/Creatinine Ratio 41.2 (10.0-20.0); Blood Urea Nitrogen 21 mg/dL (9-23); Calcium 7.9 mg/dL (8.7-10.4); Carbon Dioxide 26 mmol/L (20-30); Chloride 105 mmol/L (98-107); Glucose 172 mg/dL (74-106); Magnesium 1.9 mg/dL (1.6-2.6); Potassium 4.4 mmol/L (3.5-5.1); Sodium 134 mmol/L (136-145)
[2024-05-10 03:43] LABS: Bilirubin, Total 0.3 mg/dL (0.2-1.0); Phosphorus 3.1 mg/dL (2.4-5.1); Total Protein 4.6 g/dL (5.7-8.2)
[2024-05-10 03:46] LABS: Band Neutrophils % (manual) 0; Basophils % (manual) 0 (0.0-2.0); Blast Cells 0; Eosinophils % (manual) 0 (0-7); Metamyelocytes % 0; Myelocytes % 0; Promyelocytes % 0; Reactive Lymphocytes 0
[2024-05-10 04:21] LABS: Lymphocytes % (manual) 4 (10.0-50.0); Monocytes % (manual) 7 (0-12); Platelet Estimate Increased; Smudge Cells 1 /100 WBC
[2024-05-10] MEDS ORDERED: VANCOMYCIN PER PHARMACY 0 MG IV SCH (13:45)
[2024-05-10] MEDS: VANCOMYCIN 1GM/200ML 200 ML IV ONE (15:14)
[2024-05-10] MEDS: CEFEPIME 2GM/50ML NS 50 ML IV SCH (16:50)
[2024-05-10] MEDS: TPN PER PHARMACY IV NR (20:24)
[2024-05-11] VITALS (109 sets, daily range): BP systolic 88–133; BP diastolic 37–68; PULSE 91–124; RESP 14–29; TEMP 97.9–100.6; O2SAT 96–100
[2024-05-11 04:00] LABS: Basophils # (auto) 0.1 10 ^3/uL (0-0.2); Basophils % (auto) 0.4 % (0.0-2.0); Eosinophils # (auto) 0.2 10 ^3/uL (0-0.8); Eosinophils % (auto) 0.8 % (0.0-7.0); Hematocrit 27.6 % (36.0-46.0); Lymphocytes # (auto) 1.4 10 ^3/uL (0.4-5.4); Lymphocytes % (auto) 5.1 % (10.0-50.0); Mean Corpuscular Hgb Conc. 32.6 g/dL (32.0-36.0); Mean Corpuscular Volume 88.9 fL (80.0-100.0); Monocytes # (auto) 1.6 10 ^3/uL (0-1.3); Monocytes % (auto) 5.8 % (0.0-12.0); Neutrophils # (auto) 24.5 10 ^3/uL (1.6-8.6); Neutrophils % (auto) 87.9 % (37.0-80.0); Nucleated Red Blood Cells % 0.1 %; Platelet Count (auto) 492 10^3/uL (140-450); Red Cell Distribution Width 17.1 % (11.8-14.3); White Blood Cell 27.9 10^3/uL (4.4-10.8)
[2024-05-11 04:21] LABS: Alanine Aminotransferase 17 U/L (7-40); Albumin 2.5 g/dL (3.2-4.8); Alkaline Phosphatase 150 U/L (46-116); Anion Gap 5 (5-15); Aspartate Aminotransferase 25 U/L (13-40); BUN/Creatinine Ratio 43.8 (10.0-20.0); Blood Urea Nitrogen 21 mg/dL (9-23); Calcium 8.1 mg/dL (8.7-10.4); Carbon Dioxide 26 mmol/L (20-30); Chloride 105 mmol/L (98-107); Glucose 134 mg/dL (74-106); Magnesium 1.9 mg/dL (1.6-2.6); Phosphorus 3.2 mg/dL (2.4-5.1); Potassium 4.1 mmol/L (3.5-5.1); Sodium 136 mmol/L (136-145)
[2024-05-11 04:22] LABS: Bilirubin, Total 0.3 mg/dL (0.2-1.0); Total Protein 4.7 g/dL (5.7-8.2)
[2024-05-11] MEDS: VANCOMYCIN 1GM/200ML 200 ML IV SCH (04:59)
[2024-05-11 07:42] LABS: Base Excess -2.4 mmol/L (-2.0-2.0)
[2024-05-11] MEDS: ACETAMINOPHEN 650 MG RECT SUPP PR PRN (15:16)
[2024-05-11] MEDS: TPN PER PHARMACY IV NR (20:09)
[2024-05-12] VITALS (112 sets, daily range): BP systolic 89–142; BP diastolic 34–111; PULSE 90–112; RESP 11–27; TEMP 96.4–100.9; O2SAT 9–100
[2024-05-12 02:24] LABS: Hematocrit 27.1 % (36.0-46.0); Hemoglobin 8.6 g/dL (12.2-16.2); Mean Corpuscular Hemoglobin 28.7 pg (28.0-32.0); Mean Corpuscular Hgb Conc. 31.8 g/dL (32.0-36.0); Mean Corpuscular Volume 90.1 fL (80.0-100.0); Platelet Count (auto) 471 10^3/uL (140-450); Red Blood Cells 3.01 10^6/uL (4.0-5.20); Red Cell Distribution Width 16.8 % (11.8-14.3); White Blood Cell 23.1 10^3/uL (4.4-10.8)
[2024-05-12 02:26] LABS: Basophils % (manual) 0 (0.0-2.0); Blast Cells 0; Eosinophils % (manual) 0 (0-7); Metamyelocytes % 0; Myelocytes % 0; Promyelocytes % 0; Reactive Lymphocytes 0
[2024-05-12 02:32] LABS: Alanine Aminotransferase 54 U/L (7-40); Albumin 2.5 g/dL (3.2-4.8); Alkaline Phosphatase 255 U/L (46-116); Anion Gap 7 (5-15); Aspartate Aminotransferase 72 U/L (13-40); BUN/Creatinine Ratio 41.7 (10.0-20.0); Bilirubin, Total 0.5 mg/dL (0.2-1.0); Blood Urea Nitrogen 15 mg/dL (9-23); Calcium 7.8 mg/dL (8.7-10.4); Carbon Dioxide 22 mmol/L (20-30); Chloride 107 mmol/L (98-107); Glucose 123 mg/dL (74-106); Magnesium 1.7 mg/dL (1.6-2.6); Phosphorus 3.5 mg/dL (2.4-5.1); Sodium 136 mmol/L (136-145); Total Protein 4.6 g/dL (5.7-8.2)
[2024-05-12 03:13] LABS: Triglycerides 224 mg/dL (< 150)
[2024-05-12 04:06] LABS: Band Neutrophils % (manual) 7; Lymphocytes % (manual) 4 (10.0-50.0); Monocytes % (manual) 11 (0-12); Platelet Estimate Increased
[2024-05-12 07:32] LABS: Base Excess -0.4 mmol/L (-2.0-2.0)
[2024-05-12] MEDS: PANTOPRAZOLE 40 MG/10 ML VIAL INJ IV SCH (10:00)
[2024-05-12] MEDS: ENOXAPARIN SOD 40 MG/0.4 ML SYRINGE SC SCH (10:09)
[2024-05-12] MEDS: TPN PER PHARMACY IV NR (20:29)
[2024-05-13] VITALS (107 sets, daily range): BP systolic 76–128; BP diastolic 23–94; PULSE 74–115; RESP 13–29; TEMP 78.3–101.1; O2SAT 96–100
[2024-05-13] MEDS: VANCOMYCIN 1GM/200ML 200 ML IV SCH (00:23)
[2024-05-13 04:22] LABS: Hematocrit 27.3 % (36.0-46.0); Hemoglobin 8.9 g/dL (12.2-16.2); Mean Corpuscular Hemoglobin 28.7 pg (28.0-32.0); Mean Corpuscular Hgb Conc. 32.5 g/dL (32.0-36.0); Mean Corpuscular Volume 88.5 fL (80.0-100.0); Platelet Count (auto) 496 10^3/uL (140-450); Red Blood Cells 3.08 10^6/uL (4.0-5.20); Red Cell Distribution Width 16.8 % (11.8-14.3)
[2024-05-13 04:25] LABS: Basophils % (manual) 0 (0.0-2.0); Blast Cells 0; Metamyelocytes % 0; Myelocytes % 0; Promyelocytes % 0; Reactive Lymphocytes 0; White Blood Cell 30.4 10^3/uL (4.4-10.8)
[2024-05-13 04:36] LABS: Band Neutrophils % (manual) 6; Eosinophils % (manual) 5 (0-7); Lymphocytes % (manual) 7 (10.0-50.0); Monocytes % (manual) 8 (0-12)
[2024-05-13 04:37] LABS: Platelet Estimate Increased
[2024-05-13 04:40] LABS: Alanine Aminotransferase 52 U/L (7-40); Albumin 2.7 g/dL (3.2-4.8); Alkaline Phosphatase 284 U/L (46-116); Anion Gap 7 (5-15); Aspartate Aminotransferase 35 U/L (13-40); BUN/Creatinine Ratio 51.5 (10.0-20.0); Bilirubin, Total 0.6 mg/dL (0.2-1.0); Blood Urea Nitrogen 17 mg/dL (9-23); Calcium 8.1 mg/dL (8.5-10.1); Carbon Dioxide 23 mmol/L (20-30); Chloride 105 mmol/L (98-107); Glucose 103 mg/dL (74-106); Magnesium 1.7 mg/dL (1.6-2.6); Phosphorus 3.5 mg/dL (2.4-5.1); Sodium 135 mmol/L (136-145); Total Protein 4.8 g/dL (5.7-8.2)
[2024-05-13 07:33] LABS: Base Excess -0.8 mmol/L (-2.0-2.0)
[2024-05-13] MEDS: SODIUM CHLORIDE 0.9% 1,000 ML IV ONE (11:12)
[2024-05-13] MEDS: SOD CHL 0.45% WITH 20MEQ KCL 1,000 ML IV SCH (12:03)
[2024-05-13] MEDS: MAGNESIUM SULFATE 1GM/100ML 100 ML IV ONE (12:16)
[2024-05-13] MEDS: TPN PER PHARMACY IV NR (22:35)
[2024-05-14] VITALS (111 sets, daily range): BP systolic 68–159; BP diastolic 30–108; PULSE 72–104; RESP 12–28; TEMP 96.6–101.3; O2SAT 93–100
[2024-05-14 04:18] LABS: Mean Corpuscular Hemoglobin 28.4 pg (28.0-32.0); White Blood Cell 27.3 10^3/uL (4.4-10.8)
[2024-05-14 04:20] LABS: Hematocrit 24.6 % (36.0-46.0); Hemoglobin 7.8 g/dL (12.2-16.2); Mean Corpuscular Hgb Conc. 31.7 g/dL (32.0-36.0); Mean Corpuscular Volume 89.6 fL (80.0-100.0); Platelet Count (auto) 464 10^3/uL (140-450); Red Blood Cells 2.74 10^6/uL (4.0-5.20); Red Cell Distribution Width 17.2 % (11.8-14.3)
[2024-05-14 04:25] LABS: Basophils % (manual) 0 (0.0-2.0); Blast Cells 0; Metamyelocytes % 0; Myelocytes % 0; Promyelocytes % 0; Reactive Lymphocytes 0
[2024-05-14 04:37] LABS: Band Neutrophils % (manual) 10; Eosinophils % (manual) 2 (0-7); Lymphocytes % (manual) 13 (10.0-50.0); Monocytes % (manual) 7 (0-12); Platelet Estimate Increased
[2024-05-14 04:45] LABS: Alanine Aminotransferase 31 U/L (7-40); Albumin 2.5 g/dL (3.2-4.8); Alkaline Phosphatase 228 U/L (46-116); Anion Gap 4 (5-15); Aspartate Aminotransferase 19 U/L (13-40); BUN/Creatinine Ratio 47.1 (10.0-20.0); Blood Urea Nitrogen 16 mg/dL (9-23); Carbon Dioxide 22 mmol/L (20-30); Chloride 107 mmol/L (98-107); Glucose 125 mg/dL (74-106); Potassium 4.3 mmol/L (3.5-5.1); Sodium 133 mmol/L (136-145)
[2024-05-14 04:46] LABS: Bilirubin, Total 0.4 mg/dL (0.2-1.0); Phosphorus 3.1 mg/dL (2.4-5.1); Total Protein 4.7 g/dL (5.7-8.2)
[2024-05-14 07:06] LABS: Base Excess -4.4 mmol/L (-2.0-2.0)
[2024-05-14] MEDS: TPN PER PHARMACY IV NR (21:41)
[2024-05-15] VITALS (106 sets, daily range): BP systolic 71–132; BP diastolic 27–82; PULSE 77–103; RESP 12–27; TEMP 90.7–101.1; O2SAT 92–100
[2024-05-15 04:46] LABS: White Blood Cell 21.8 10^3/uL (4.4-10.8)
[2024-05-15 04:48] LABS: Hematocrit 24.8 % (36.0-46.0); Mean Corpuscular Hgb Conc. 32.2 g/dL (32.0-36.0); Mean Corpuscular Volume 89.9 fL (80.0-100.0); Platelet Count (auto) 454 10^3/uL (140-450); Red Blood Cells 2.76 10^6/uL (4.0-5.20); Red Cell Distribution Width 17.4 % (11.8-14.3)
[2024-05-15 05:00] LABS: Basophils % (manual) 0 (0.0-2.0); Blast Cells 0; Myelocytes % 0; Promyelocytes % 0; Reactive Lymphocytes 0
[2024-05-15 05:03] LABS: Alanine Aminotransferase 22 U/L (7-40); Albumin 2.5 g/dL (3.2-4.8); Alkaline Phosphatase 235 U/L (46-116); Anion Gap 4 (5-15); Aspartate Aminotransferase 18 U/L (13-40); BUN/Creatinine Ratio 34.5 (10.0-20.0); Blood Urea Nitrogen 10 mg/dL (9-23); Calcium 7.9 mg/dL (8.7-10.4); Carbon Dioxide 20 mmol/L (20-30); Chloride 106 mmol/L (98-107); Glucose 111 mg/dL (74-106); Magnesium 1.8 mg/dL (1.6-2.6); Potassium 4.8 mmol/L (3.5-5.1); Sodium 130 mmol/L (136-145)
[2024-05-15 05:04] LABS: Bilirubin, Total 0.3 mg/dL (0.2-1.0); Total Protein 4.6 g/dL (5.7-8.2)
[2024-05-15 05:40] LABS: Anisocytosis Slight; Band Neutrophils % (manual) 10; Eosinophils % (manual) 2 (0-7); Lymphocytes % (manual) 6 (10.0-50.0); Metamyelocytes % 1; Monocytes % (manual) 9 (0-12); Platelet Estimate Increased
[2024-05-15 06:54] LABS: Base Excess -3.5 mmol/L (-2.0-2.0)
[2024-05-15] MEDS: FLUCONAZOLE 200MG/100ML 100 ML IV SCH ×2 (13:00→16:16)
[2024-05-15] MEDS: SODIUM CHLORIDE 0.9% 1,000 ML IV SCH (13:18)
[2024-05-15] MEDS: METOCLOPRAMIDE HCL 5MG/ml INJ 2ml VIAL IV ONE (13:18)
[2024-05-15] MEDS: METOCLOPRAMIDE HCL 5MG/ml INJ 2ml VIAL IV SCH (13:31)
[2024-05-15] MEDS ORDERED: FLUCONAZOLE 200MG/100ML 100 ML IV SCH (16:00)
[2024-05-15] MEDS: TPN PER PHARMACY IV NR (21:18)
[2024-05-16] VITALS (104 sets, daily range): BP systolic 87–147; BP diastolic 24–81; PULSE 60–97; RESP 9–26; TEMP 95.5–100.9; O2SAT 68–100
[2024-05-16 04:11] LABS: Hematocrit 24.8 % (36.0-46.0)
[2024-05-16 04:13] LABS: Mean Corpuscular Hemoglobin 28.8 pg (28.0-32.0); Mean Corpuscular Hgb Conc. 32.2 g/dL (32.0-36.0); Mean Corpuscular Volume 89.2 fL (80.0-100.0); Platelet Count (auto) 464 10^3/uL (140-450); Red Blood Cells 2.78 10^6/uL (4.0-5.20); Red Cell Distribution Width 17.1 % (11.8-14.3); White Blood Cell 25.3 10^3/uL (4.4-10.8)
[2024-05-16 04:19] LABS: Alanine Aminotransferase 16 U/L (7-40); Albumin 2.5 g/dL (3.2-4.8); Alkaline Phosphatase 245 U/L (46-116); Anion Gap 5 (5-15); Aspartate Aminotransferase 15 U/L (13-40); BUN/Creatinine Ratio 36.7 (10.0-20.0); Blood Urea Nitrogen 11 mg/dL (9-23); Carbon Dioxide 21 mmol/L (20-30); Chloride 105 mmol/L (98-107); Glucose 140 mg/dL (74-106); Magnesium 1.8 mg/dL (1.6-2.6); Potassium 3.6 mmol/L (3.5-5.1); Sodium 131 mmol/L (136-145)
[2024-05-16 04:20] LABS: Bilirubin, Total 0.3 mg/dL (0.2-1.0); Phosphorus 3.3 mg/dL (2.4-5.1); Total Protein 4.6 g/dL (5.7-8.2)
[2024-05-16 04:30] LABS: Basophils % (manual) 0 (0.0-2.0); Blast Cells 0; Promyelocytes % 0; Reactive Lymphocytes 0
[2024-05-16 06:49] LABS: Band Neutrophils % (manual) 13; Eosinophils % (manual) 3 (0-7); Lymphocytes % (manual) 6 (10.0-50.0); Metamyelocytes % 2; Monocytes % (manual) 9 (0-12); Myelocytes % 1; Platelet Estimate Increased
[2024-05-16 06:50] LABS: Anisocytosis Slight; Large Platelets FEW; Stomatocytes Few
[2024-05-16 07:26] LABS: Base Excess -3.8 mmol/L (-2.0-2.0)
[2024-05-16] MEDS: FUROSEMIDE 20 MG/2 ML VIAL IV ONE (12:44)
[2024-05-16] MEDS: MEROPENEM 1GM IVPB 50 ML IV ONE (12:45)
[2024-05-16] MEDS: MEROPENEM 1GM IVPB 50 ML IV SCH (14:43)
[2024-05-16] MEDS: TPN PER PHARMACY IV NR (20:26)
[2024-05-17] VITALS (107 sets, daily range): BP systolic 90–142; BP diastolic 19–91; PULSE 68–97; RESP 12–23; TEMP 98.2–101.7; O2SAT 92–100
[2024-05-17 04:09] LABS: Hematocrit 24.1 % (36.0-46.0); Hemoglobin 7.7 g/dL (12.2-16.2); Mean Corpuscular Hemoglobin 28.1 pg (28.0-32.0); Mean Corpuscular Hgb Conc. 31.8 g/dL (32.0-36.0); Mean Corpuscular Volume 88.4 fL (80.0-100.0); Platelet Count (auto) 437 10^3/uL (140-450); Red Blood Cells 2.72 10^6/uL (4.0-5.20); Red Cell Distribution Width 17.6 % (11.8-14.3); White Blood Cell 21.7 10^3/uL (4.4-10.8)
[2024-05-17 04:12] LABS: Basophils % (manual) 0 (0.0-2.0); Blast Cells 0; Myelocytes % 0; Promyelocytes % 0; Reactive Lymphocytes 0
[2024-05-17 04:30] LABS: Alanine Aminotransferase 14 U/L (7-40); Albumin 2.3 g/dL (3.2-4.8); Alkaline Phosphatase 238 U/L (46-116); Anion Gap 6 (5-15); Aspartate Aminotransferase 16 U/L (13-40); Blood Urea Nitrogen 14 mg/dL (9-23); Calcium 8.5 mg/dL (8.7-10.4); Carbon Dioxide 24 mmol/L (20-30); Chloride 106 mmol/L (98-107); Glucose 144 mg/dL (74-106); Potassium 3.2 mmol/L (3.5-5.1); Sodium 136 mmol/L (136-145)
[2024-05-17 04:31] LABS: Bilirubin, Total 0.3 mg/dL (0.2-1.0); Phosphorus 3.9 mg/dL (2.4-5.1); Total Protein 4.4 g/dL (5.7-8.2)
[2024-05-17 05:07] LABS: Triglycerides 236 mg/dL (< 150)
[2024-05-17] MEDS: POTASSIUM CHL 20MEQ/100ML 100 ML IV ONE (05:45)
[2024-05-17 08:11] LABS: Base Excess -0.6 mmol/L (-2.0-2.0)
[2024-05-17 09:15] LABS: Band Neutrophils % (manual) 15; Eosinophils % (manual) 1 (0-7); Lymphocytes % (manual) 5 (10.0-50.0); Metamyelocytes % 1; Monocytes % (manual) 5 (0-12); Platelet Estimate Adequate
[2024-05-17] MEDS: GASTROGRAFIN 120 ML SOL ONE (11:11)
[2024-05-17] MEDS ORDERED: POTASSIUM CHL 20MEQ/100ML 100 ML IV ONE (11:45)
[2024-05-17] MEDS: FUROSEMIDE 20 MG/2 ML VIAL IV ONE (12:49)
[2024-05-17] MEDS: POTASSIUM CHL 20MEQ/100ML 100 ML IV SCH (12:50)
[2024-05-17 14:40] LABS: Hemoglobin 8.9 g/dL (12.2-16.2)
[2024-05-17 14:42] LABS: Hematocrit 27.2 % (36.0-46.0)
[2024-05-17] MEDS: TPN PER PHARMACY IV NR (20:14)
[2024-05-18] VITALS (104 sets, daily range): BP systolic 86–143; BP diastolic 21–71; PULSE 65–88; RESP 10–24; TEMP 97.9–100.4; O2SAT 93–100
[2024-05-18 04:19] LABS: Hemoglobin 7.7 g/dL (12.2-16.2); Mean Corpuscular Hemoglobin 28.4 pg (28.0-32.0); Mean Corpuscular Hgb Conc. 32.3 g/dL (32.0-36.0); Mean Corpuscular Volume 87.8 fL (80.0-100.0); Platelet Count (auto) 481 10^3/uL (140-450); Red Blood Cells 2.73 10^6/uL (4.0-5.20); White Blood Cell 17.5 10^3/uL (4.4-10.8)
[2024-05-18 04:23] LABS: Basophils % (manual) 0 (0.0-2.0); Blast Cells 0; Eosinophils % (manual) 0 (0-7); Metamyelocytes % 0; Myelocytes % 0; Promyelocytes % 0; Reactive Lymphocytes 0
[2024-05-18 04:50] LABS: Potassium 3.5 mmol/L (3.5-5.1)
[2024-05-18 04:51] LABS: Calcium 8.7 mg/dL (8.7-10.4)
[2024-05-18 04:56] LABS: Albumin 2.5 g/dL (3.2-4.8)
[2024-05-18 04:57] LABS: Magnesium 1.9 mg/dL (1.6-2.6)
[2024-05-18 04:58] LABS: Phosphorus 3.1 mg/dL (2.4-5.1)
[2024-05-18 05:19] LABS: BUN/Creatinine Ratio 44.4 (10.0-20.0)
[2024-05-18 08:20] LABS: Base Excess 2.3 mmol/L (-2.0-2.0)
[2024-05-18 08:20] LABS: Band Neutrophils % (manual) 4; Lymphocytes % (manual) 11 (10.0-50.0); Monocytes % (manual) 1 (0-12); Platelet Estimate Increased
[2024-05-18] MEDS: FUROSEMIDE 20 MG/2 ML VIAL IV SCH (09:43)
[2024-05-18] MEDS: [UNRECOGNIZED DRUG - OTHER] IV NR (20:14)
[2024-05-18] MEDS: SODIUM PHOSPHATES IV NR (20:14)
[2024-05-18] MEDS: POTASSIUM ACETATE IV NR (20:14)
[2024-05-18] MEDS: SODIUM CHLORIDE IV NR (20:14)
[2024-05-19] VITALS (101 sets, daily range): BP systolic 76–178; BP diastolic 22–123; PULSE 32–88; RESP 10–28; TEMP 95.7–100.6; O2SAT 93–100
[2024-05-19 04:30] LABS: Hemoglobin 8.4 g/dL (12.2-16.2); Mean Corpuscular Hgb Conc. 32.2 g/dL (32.0-36.0); White Blood Cell 16.6 10^3/uL (4.4-10.8)
[2024-05-19 04:32] LABS: Hematocrit 25.9 % (36.0-46.0); Mean Corpuscular Hemoglobin 28.4 pg (28.0-32.0); Mean Corpuscular Volume 88.1 fL (80.0-100.0); Platelet Count (auto) 527 10^3/uL (140-450); Red Blood Cells 2.94 10^6/uL (4.0-5.20); Red Cell Distribution Width 17.3 % (11.8-14.3)
[2024-05-19 04:44] LABS: Basophils % (manual) 0 (0.0-2.0); Blast Cells 0; Promyelocytes % 0; Reactive Lymphocytes 0
[2024-05-19 04:53] LABS: Alanine Aminotransferase 12 U/L (7-40); Albumin 2.6 g/dL (3.2-4.8); Alkaline Phosphatase 296 U/L (46-116); Anion Gap 3 (5-15); Aspartate Aminotransferase 17 U/L (13-40); Bilirubin, Total 0.2 mg/dL (0.2-1.0); Blood Urea Nitrogen 16 mg/dL (9-23); Calcium 8.7 mg/dL (8.7-10.4); Carbon Dioxide 32 mmol/L (20-30); Chloride 105 mmol/L (98-107); Glucose 156 mg/dL (74-106); Magnesium 1.7 mg/dL (1.6-2.6); Phosphorus 2.9 mg/dL (2.4-5.1); Potassium 3.8 mmol/L (3.5-5.1); Sodium 140 mmol/L (136-145)
[2024-05-19 05:28] LABS: Anisocytosis Slight; Band Neutrophils % (manual) 3; Eosinophils % (manual) 3 (0-7); Lymphocytes % (manual) 12 (10.0-50.0); Metamyelocytes % 3; Monocytes % (manual) 8 (0-12); Myelocytes % 4; Platelet Estimate Increased
[2024-05-19 08:40] LABS: Base Excess 7.1 mmol/L (-2.0-2.0)
[2024-05-19] MEDS: MAGNESIUM SULFATE 1GM/100ML 100 ML IV ONE (11:40)
[2024-05-19] MEDS: POTASSIUM CHL 20MEQ/100ML 100 ML IV ONE (13:56)
[2024-05-19] MEDS: FUROSEMIDE 40 MG/4 ML VIAL IV SCH (18:26)
[2024-05-19] MEDS: TPN PER PHARMACY IV NR (20:54)
[2024-05-20] VITALS (110 sets, daily range): BP systolic 93–159; BP diastolic 28–68; PULSE 59–90; RESP 12–28; TEMP 95.7–101.1; O2SAT 94–100
[2024-05-20 04:15] LABS: Alanine Aminotransferase 11 U/L (7-40); Albumin 2.5 g/dL (3.2-4.8); Alkaline Phosphatase 260 U/L (46-116); Anion Gap 3 (5-15); Aspartate Aminotransferase 19 U/L (13-40); BUN/Creatinine Ratio 48.6 (10.0-20.0); Bilirubin, Total 0.2 mg/dL (0.2-1.0); Blood Urea Nitrogen 17 mg/dL (9-23); Calcium 8.7 mg/dL (8.7-10.4); Carbon Dioxide 34 mmol/L (20-30); Chloride 102 mmol/L (98-107); Glucose 180 mg/dL (74-106); Magnesium 1.8 mg/dL (1.6-2.6); Phosphorus 3.6 mg/dL (2.4-5.1); Potassium 3.5 mmol/L (3.5-5.1); Sodium 139 mmol/L (136-145)
[2024-05-20 04:24] LABS: Hemoglobin 8.2 g/dL (12.2-16.2)
[2024-05-20 04:28] LABS: Hematocrit 25.5 % (36.0-46.0); Mean Corpuscular Hemoglobin 27.9 pg (28.0-32.0); Mean Corpuscular Hgb Conc. 32.1 g/dL (32.0-36.0); Mean Corpuscular Volume 86.8 fL (80.0-100.0); Platelet Count (auto) 515 10^3/uL (140-450); Red Blood Cells 2.93 10^6/uL (4.0-5.20); Red Cell Distribution Width 17.4 % (11.8-14.3); White Blood Cell 12.7 10^3/uL (4.4-10.8)
[2024-05-20 04:31] LABS: Basophils % (manual) 0 (0.0-2.0); Blast Cells 0; Metamyelocytes % 0; Myelocytes % 0; Promyelocytes % 0; Reactive Lymphocytes 0
[2024-05-20 05:12] LABS: Anisocytosis Slight; Band Neutrophils % (manual) 19; Eosinophils % (manual) 2 (0-7); Hypochromia Slight; Lymphocytes % (manual) 15 (10.0-50.0); Monocytes % (manual) 6 (0-12); Platelet Estimate Increased
[2024-05-20 07:14] LABS: Base Excess 9.3 mmol/L (-2.0-2.0)
[2024-05-20] MEDS: ALBUMIN 25% 100 ML IV SCH (12:27)
[2024-05-20] MEDS: Jevity 1.2 Cal/Fiber 1 Liter GT SCH (15:02)
[2024-05-20] MEDS: TPN PER PHARMACY IV NR (20:38)
[2024-05-21] VITALS (109 sets, daily range): BP systolic 88–141; BP diastolic 32–65; PULSE 66–90; RESP 12–28; TEMP 97–100.8; O2SAT 91–100
[2024-05-21 04:20] LABS: Basophils # (auto) 0.1 10 ^3/uL (0-0.2); Eosinophils # (auto) 0.3 10 ^3/uL (0-0.8); Hemoglobin 7.4 g/dL (12.2-16.2); Lymphocytes # (auto) 1.1 10 ^3/uL (0.4-5.4); Monocytes # (auto) 1.2 10 ^3/uL (0-1.3)
[2024-05-21 04:22] LABS: Basophils % (auto) 0.8 % (0.0-2.0); Eosinophils % (auto) 2.3 % (0.0-7.0); Hematocrit 23.2 % (36.0-46.0); Lymphocytes % (auto) 8.5 % (10.0-50.0); Mean Corpuscular Hgb Conc. 32.1 g/dL (32.0-36.0); Mean Corpuscular Volume 87.1 fL (80.0-100.0); Monocytes % (auto) 8.9 % (0.0-12.0); Neutrophils # (auto) 10.5 10 ^3/uL (1.6-8.6); Neutrophils % (auto) 79.5 % (37.0-80.0); Nucleated Red Blood Cells % 0.1 %; Platelet Count (auto) 472 10^3/uL (140-450); Red Blood Cells 2.66 10^6/uL (4.0-5.20); Red Cell Distribution Width 17.9 % (11.8-14.3); White Blood Cell 13.2 10^3/uL (4.4-10.8)
[2024-05-21 04:34] LABS: Alkaline Phosphatase 230 U/L (46-116); Carbon Dioxide 35 mmol/L (20-30); Chloride 101 mmol/L (98-107); Glucose 199 mg/dL (74-106); Potassium 3.5 mmol/L (3.5-5.1)
[2024-05-21 04:35] LABS: Albumin 2.8 g/dL (3.2-4.8); Anion Gap 3 (5-15); Aspartate Aminotransferase 17 U/L (13-40); Bilirubin, Total 0.3 mg/dL (0.2-1.0); Magnesium 1.9 mg/dL (1.6-2.6); Phosphorus 3.9 mg/dL (2.4-5.1); Sodium 139 mmol/L (136-145); Total Protein 5.3 g/dL (5.7-8.2)
[2024-05-21 04:38] LABS: Alanine Aminotransferase < 9 U/L (7-40)
[2024-05-21 06:59] LABS: BUN/Creatinine Ratio 53.8 (10.0-20.0); Blood Urea Nitrogen 21 mg/dL (9-23)
[2024-05-21 08:02] LABS: Base Excess 6.8 mmol/L (-2.0-2.0)
[2024-05-21] MEDS: TPN PER PHARMACY IV NR (21:51)
[2024-05-22] VITALS (107 sets, daily range): BP systolic 86–132; BP diastolic 35–85; PULSE 74–106; RESP 12–31; TEMP 94.3–100.8; O2SAT 82–100
[2024-05-22 03:59] LABS: Basophils # (auto) 0.1 10 ^3/uL (0-0.2); Basophils % (auto) 0.6 % (0.0-2.0); Eosinophils # (auto) 0.2 10 ^3/uL (0-0.8); Hemoglobin 7.3 g/dL (12.2-16.2)
[2024-05-22 04:02] LABS: Eosinophils % (auto) 1.5 % (0.0-7.0); Hematocrit 22.1 % (36.0-46.0); Lymphocytes # (auto) 1.4 10 ^3/uL (0.4-5.4); Lymphocytes % (auto) 9.8 % (10.0-50.0); Mean Corpuscular Hemoglobin 28.6 pg (28.0-32.0); Mean Corpuscular Volume 86.6 fL (80.0-100.0); Monocytes # (auto) 1.3 10 ^3/uL (0-1.3); Monocytes % (auto) 8.9 % (0.0-12.0); Neutrophils # (auto) 11.4 10 ^3/uL (1.6-8.6); Neutrophils % (auto) 79.2 % (37.0-80.0); Nucleated Red Blood Cells % 0.2 %; Platelet Count (auto) 486 10^3/uL (140-450); Red Blood Cells 2.55 10^6/uL (4.0-5.20); White Blood Cell 14.4 10^3/uL (4.4-10.8)
[2024-05-22 04:20] LABS: Alkaline Phosphatase 266 U/L (46-116); Anion Gap 2 (5-15); Aspartate Aminotransferase 24 U/L (13-40); Blood Urea Nitrogen 24 mg/dL (9-23); Calcium 9.1 mg/dL (8.7-10.4); Carbon Dioxide 37 mmol/L (20-30); Chloride 102 mmol/L (98-107); Glucose 153 mg/dL (74-106); Potassium 4.1 mmol/L (3.5-5.1); Sodium 141 mmol/L (136-145)
[2024-05-22 04:21] LABS: Albumin 2.8 g/dL (3.2-4.8); Phosphorus 3.8 mg/dL (2.4-5.1)
[2024-05-22 04:22] LABS: Bilirubin, Total 0.3 mg/dL (0.2-1.0); Total Protein 5.2 g/dL (5.7-8.2)
[2024-05-22 04:41] LABS: Alanine Aminotransferase < 9 U/L (7-40)
[2024-05-22 08:40] LABS: Base Excess 6.4 mmol/L (-2.0-2.0)
[2024-05-22] MEDS ORDERED: TPN PER PHARMACY IV NR (20:00)
[2024-05-23] VITALS (110 sets, daily range): BP systolic 80–214; BP diastolic 15–171; PULSE 81–107; RESP 10–30; TEMP 97.5–100.4; O2SAT 89–100
[2024-05-23 04:25] LABS: Hemoglobin 7.6 g/dL (12.2-16.2)
[2024-05-23 04:27] LABS: Hematocrit 23.3 % (36.0-46.0); Mean Corpuscular Hemoglobin 27.9 pg (28.0-32.0); Mean Corpuscular Hgb Conc. 32.6 g/dL (32.0-36.0); Mean Corpuscular Volume 85.7 fL (80.0-100.0); Platelet Count (auto) 539 10^3/uL (140-450); Red Blood Cells 2.72 10^6/uL (4.0-5.20); Red Cell Distribution Width 18.1 % (11.8-14.3); White Blood Cell 17.6 10^3/uL (4.4-10.8)
[2024-05-23 04:42] LABS: Basophils % (manual) 0 (0.0-2.0); Blast Cells 0; Metamyelocytes % 0; Promyelocytes % 0; Reactive Lymphocytes 0
[2024-05-23 05:42] LABS: Alanine Aminotransferase 13 U/L (7-40); Albumin 2.9 g/dL (3.2-4.8); Alkaline Phosphatase 359 U/L (46-116); Anion Gap 10 (5-15); Aspartate Aminotransferase 29 U/L (13-40); BUN/Creatinine Ratio 57.1 (10.0-20.0); Bilirubin, Total 0.5 mg/dL (0.2-1.0); Blood Urea Nitrogen 24 mg/dL (9-23); Calcium 9.4 mg/dL (8.7-10.4); Carbon Dioxide 28 mmol/L (20-30); Chloride 101 mmol/L (98-107); Glucose 147 mg/dL (74-106); Potassium 4.4 mmol/L (3.5-5.1); Sodium 139 mmol/L (136-145); Total Protein 5.6 g/dL (5.7-8.2)
[2024-05-23 06:55] LABS: Band Neutrophils % (manual) 9; Eosinophils % (manual) 2 (0-7); Lymphocytes % (manual) 12 (10.0-50.0); Monocytes % (manual) 9 (0-12); Myelocytes % 1
[2024-05-23 06:56] LABS: Anisocytosis Slight; Platelet Estimate Increased; Stomatocytes Few
[2024-05-23 07:21] LABS: Base Excess 9.9 mmol/L (-2.0-2.0)
[2024-05-23] MEDS: ALBUMIN 25% 50 ML IV ONE (22:38)
[2024-05-24] VITALS (59 sets, daily range): BP systolic 97–135; BP diastolic 39–66; PULSE 65–92; RESP 10–28; TEMP 96.6–99.3; O2SAT 93–100
[2024-05-24 04:21] LABS: Basophils # (auto) 0.1 10 ^3/uL (0-0.2); Eosinophils # (auto) 0.2 10 ^3/uL (0-0.8); Lymphocytes # (auto) 1.2 10 ^3/uL (0.4-5.4); Neutrophils % (auto) 81.2 % (37.0-80.0); Nucleated Red Blood Cells % 0.1 %
[2024-05-24 04:27] LABS: Basophils % (auto) 0.7 % (0.0-2.0); Eosinophils % (auto) 1.5 % (0.0-7.0); Hematocrit 21.6 % (36.0-46.0); Hemoglobin 7.1 g/dL (12.2-16.2); Lymphocytes % (auto) 9.1 % (10.0-50.0); Mean Corpuscular Hemoglobin 27.7 pg (28.0-32.0); Mean Corpuscular Hgb Conc. 32.6 g/dL (32.0-36.0); Mean Corpuscular Volume 84.9 fL (80.0-100.0); Monocytes % (auto) 7.5 % (0.0-12.0); Neutrophils # (auto) 10.6 10 ^3/uL (1.6-8.6); Platelet Count (auto) 491 10^3/uL (140-450); Red Blood Cells 2.55 10^6/uL (4.0-5.20); Red Cell Distribution Width 18.3 % (11.8-14.3); White Blood Cell 13.1 10^3/uL (4.4-10.8)
[2024-05-24 04:32] LABS: Anion Gap 5 (5-15); Carbon Dioxide 34 mmol/L (20-30); Chloride 101 mmol/L (98-107); Potassium 3.5 mmol/L (3.5-5.1); Sodium 140 mmol/L (136-145)
[2024-05-24 04:33] LABS: Calcium 9.4 mg/dL (8.7-10.4)
[2024-05-24 04:38] LABS: BUN/Creatinine Ratio 54.3 (10.0-20.0); Blood Urea Nitrogen 25 mg/dL (9-23); Glucose 141 mg/dL (74-106)
[2024-05-24] MEDS: VANCOMYCIN 1GM/200ML 200 ML IV SCH (10:43)
[2024-05-25] VITALS (51 sets, daily range): BP systolic 108–142; BP diastolic 46–115; PULSE 82–94; RESP 14–28; TEMP 98.1–99.9; O2SAT 90–97
[2024-05-25 04:03] LABS: Basophils # (auto) 0.1 10 ^3/uL (0-0.2); Eosinophils # (auto) 0.3 10 ^3/uL (0-0.8); Hemoglobin 7.3 g/dL (12.2-16.2); Lymphocytes # (auto) 1.2 10 ^3/uL (0.4-5.4); Neutrophils # (auto) 8.4 10 ^3/uL (1.6-8.6)
[2024-05-25 04:06] LABS: Basophils % (auto) 0.7 % (0.0-2.0); Eosinophils % (auto) 2.5 % (0.0-7.0); Hematocrit 21.4 % (36.0-46.0); Lymphocytes % (auto) 10.8 % (10.0-50.0); Mean Corpuscular Hemoglobin 28.9 pg (28.0-32.0); Mean Corpuscular Hgb Conc. 34.1 g/dL (32.0-36.0); Mean Corpuscular Volume 84.7 fL (80.0-100.0); Monocytes % (auto) 8.8 % (0.0-12.0); Neutrophils % (auto) 77.2 % (37.0-80.0); Platelet Count (auto) 504 10^3/uL (140-450); Red Blood Cells 2.52 10^6/uL (4.0-5.20); Red Cell Distribution Width 18.4 % (11.8-14.3); White Blood Cell 10.9 10^3/uL (4.4-10.8)
[2024-05-25 04:21] LABS: Alanine Aminotransferase 16 U/L (7-40); Albumin 2.9 g/dL (3.2-4.8); Alkaline Phosphatase 296 U/L (46-116); Anion Gap 6 (5-15); Aspartate Aminotransferase 32 U/L (13-40); BUN/Creatinine Ratio 64.4 (10.0-20.0); Bilirubin, Total 0.3 mg/dL (0.2-1.0); Blood Urea Nitrogen 29 mg/dL (9-23); Calcium 9.4 mg/dL (8.5-10.1); Carbon Dioxide 34 mmol/L (20-30); Chloride 101 mmol/L (98-107); Glucose 92 mg/dL (74-106); Potassium 2.8 mmol/L (3.5-5.1); Sodium 141 mmol/L (136-145); Total Protein 5.6 g/dL (5.7-8.2)
[2024-05-25] MEDS: POTASSIUM CHL 20MEQ/100ML 100 ML IV SCH (06:01)
[2024-05-25 07:58] LABS: Base Excess 10.1 mmol/L (-2.0-2.0)
[2024-05-25] MEDS: POTASSIUM EFFERVESENT TAB 25 MEQ GT ONE (13:27)
[2024-05-25] MEDS: IRON SUCROSE COMPLEX 100 ML IV SCH (13:45)
[2024-05-25] MEDS: VANCOMYCIN 1GM/200ML 200 ML IV SCH (19:55)
[2024-05-26] VITALS (71 sets, daily range): BP systolic 105–144; BP diastolic 39–69; PULSE 82–100; RESP 13–27; TEMP 98.2–100; O2SAT 90–100
[2024-05-26 03:48] LABS: Basophils # (auto) 0.1 10 ^3/uL (0-0.2); Eosinophils # (auto) 0.4 10 ^3/uL (0-0.8); Lymphocytes # (auto) 1.4 10 ^3/uL (0.4-5.4); Neutrophils # (auto) 7.8 10 ^3/uL (1.6-8.6)
[2024-05-26 03:52] LABS: Basophils % (auto) 0.7 % (0.0-2.0); Eosinophils % (auto) 3.7 % (0.0-7.0); Hematocrit 22.4 % (36.0-46.0); Hemoglobin 7.4 g/dL (12.2-16.2); Lymphocytes % (auto) 13.4 % (10.0-50.0); Mean Corpuscular Hemoglobin 28.3 pg (28.0-32.0); Mean Corpuscular Hgb Conc. 33.2 g/dL (32.0-36.0); Mean Corpuscular Volume 85.1 fL (80.0-100.0); Monocytes # (auto) 0.8 10 ^3/uL (0-1.3); Monocytes % (auto) 7.9 % (0.0-12.0); Neutrophils % (auto) 74.3 % (37.0-80.0); Nucleated Red Blood Cells % 0.1 %; Platelet Count (auto) 561 10^3/uL (140-450); Red Blood Cells 2.63 10^6/uL (4.0-5.20); Red Cell Distribution Width 18.7 % (11.8-14.3); White Blood Cell 10.5 10^3/uL (4.4-10.8)
[2024-05-26 04:00] LABS: Chloride 102 mmol/L (98-107); Potassium 3.1 mmol/L (3.5-5.1); Sodium 143 mmol/L (136-145)
[2024-05-26 04:01] LABS: Anion Gap 8 (5-15); Calcium 9.2 mg/dL (8.7-10.4); Carbon Dioxide 33 mmol/L (20-30)
[2024-05-26 04:06] LABS: BUN/Creatinine Ratio 57.4 (10.0-20.0); Blood Urea Nitrogen 27 mg/dL (9-23); Glucose 89 mg/dL (74-106); Magnesium 1.7 mg/dL (1.6-2.6)
[2024-05-26] MEDS: MAGNESIUM SULFATE 1GM/100ML 100 ML IV ONE (09:46)
[2024-05-26] MEDS: POTASSIUM EFFERVESENT TAB 25 MEQ PO ONE (09:46)
[2024-05-26 10:00] LABS: Base Excess 7.9 mmol/L (-2.0-2.0)
[2024-05-27] VITALS (110 sets, daily range): BP systolic 107–152; BP diastolic 34–60; PULSE 86–109; RESP 11–26; TEMP 98.2–99.7; O2SAT 90–100
[2024-05-27 08:11] LABS: Mean Corpuscular Hgb Conc. 32.9 g/dL (32.0-36.0)
[2024-05-27 08:13] LABS: Hematocrit 23.5 % (36.0-46.0); Hemoglobin 7.7 g/dL (12.2-16.2); Mean Corpuscular Volume 85.2 fL (80.0-100.0); Platelet Count (auto) 548 10^3/uL (140-450); Red Blood Cells 2.76 10^6/uL (4.0-5.20); Red Cell Distribution Width 19.3 % (11.8-14.3); White Blood Cell 11.4 10^3/uL (4.4-10.8)
[2024-05-27 08:17] LABS: Basophils % (manual) 0 (0.0-2.0); Blast Cells 0; Promyelocytes % 0; Reactive Lymphocytes 0
[2024-05-27 08:35] LABS: Eosinophils % (manual) 5 (0-7); Lymphocytes % (manual) 17 (10.0-50.0); Metamyelocytes % 1; Myelocytes % 1
[2024-05-27 08:36] LABS: Monocytes % (manual) 9 (0-12)
[2024-05-27 08:37] LABS: Band Neutrophils % (manual) 6
[2024-05-27 08:38] LABS: Anisocytosis Slight; Platelet Estimate Increased
[2024-05-27 08:44] LABS: Chloride 103 mmol/L (98-107); Potassium 3.1 mmol/L (3.5-5.1); Sodium 144 mmol/L (136-145)
[2024-05-27 08:45] LABS: Anion Gap 9 (5-15); Calcium 9.2 mg/dL (8.7-10.4); Carbon Dioxide 32 mmol/L (20-30)
[2024-05-27 08:50] LABS: BUN/Creatinine Ratio 42.6 (10.0-20.0); Blood Urea Nitrogen 20 mg/dL (9-23); Glucose 86 mg/dL (74-106)
[2024-05-27] MEDS: MAGNESIUM SULFATE 1GM/100ML 100 ML IV SCH (11:43)
[2024-05-27] MEDS: POTASSIUM CHL 20MEQ/100ML 100 ML IV SCH (11:50)
[2024-05-28] VITALS (99 sets, daily range): BP systolic 87–154; BP diastolic 35–72; PULSE 86–106; RESP 11–27; TEMP 97.5–100; O2SAT 93–99
[2024-05-28 03:25] LABS: Basophils # (auto) 0.1 10 ^3/uL (0-0.2); Eosinophils # (auto) 0.5 10 ^3/uL (0-0.8)
[2024-05-28 03:31] LABS: Basophils % (auto) 0.9 % (0.0-2.0); Hematocrit 22.6 % (36.0-46.0); Hemoglobin 7.5 g/dL (12.2-16.2); Lymphocytes # (auto) 2.1 10 ^3/uL (0.4-5.4); Lymphocytes % (auto) 19.7 % (10.0-50.0); Mean Corpuscular Hemoglobin 28.8 pg (28.0-32.0); Mean Corpuscular Hgb Conc. 33.3 g/dL (32.0-36.0); Mean Corpuscular Volume 86.6 fL (80.0-100.0); Monocytes % (auto) 9.2 % (0.0-12.0); Neutrophils # (auto) 6.8 10 ^3/uL (1.6-8.6); Neutrophils % (auto) 65.2 % (37.0-80.0); Platelet Count (auto) 520 10^3/uL (140-450); Red Blood Cells 2.61 10^6/uL (4.0-5.20); White Blood Cell 10.5 10^3/uL (4.4-10.8)
[2024-05-28 03:46] LABS: Alanine Aminotransferase 19 U/L (7-40); Albumin 2.9 g/dL (3.2-4.8); Alkaline Phosphatase 216 U/L (46-116); Anion Gap 9 (5-15); Aspartate Aminotransferase 38 U/L (13-40); BUN/Creatinine Ratio 47.8 (10.0-20.0); Bilirubin, Total 0.3 mg/dL (0.2-1.0); Blood Urea Nitrogen 22 mg/dL (9-23); Calcium 9.1 mg/dL (8.7-10.4); Carbon Dioxide 31 mmol/L (20-30); Chloride 104 mmol/L (98-107); Glucose 95 mg/dL (74-106); Magnesium 2.1 mg/dL (1.6-2.6); Potassium 3.7 mmol/L (3.5-5.1); Sodium 144 mmol/L (136-145)
[2024-05-28 03:47] LABS: Total Protein 5.5 g/dL (5.7-8.2)
[2024-05-28 07:36] LABS: Base Excess 5.4 mmol/L (-2.0-2.0)
[2024-05-29] VITALS (108 sets, daily range): BP systolic 97–134; BP diastolic 25–61; PULSE 86–103; RESP 11–29; TEMP 98.2–99.7; O2SAT 93–100
[2024-05-29 04:01] LABS: Basophils # (auto) 0.1 10 ^3/uL (0-0.2); Basophils % (auto) 0.6 % (0.0-2.0); Eosinophils # (auto) 0.5 10 ^3/uL (0-0.8); Eosinophils % (auto) 4.4 % (0.0-7.0); Hematocrit 23.4 % (36.0-46.0); Hemoglobin 7.6 g/dL (12.2-16.2); Lymphocytes % (auto) 19.4 % (10.0-50.0); Mean Corpuscular Hemoglobin 27.9 pg (28.0-32.0); Mean Corpuscular Hgb Conc. 32.3 g/dL (32.0-36.0); Mean Corpuscular Volume 86.3 fL (80.0-100.0); Monocytes # (auto) 0.9 10 ^3/uL (0-1.3); Monocytes % (auto) 8.6 % (0.0-12.0); Neutrophils # (auto) 7.1 10 ^3/uL (1.6-8.6); Nucleated Red Blood Cells % 0.1 %; Platelet Count (auto) 498 10^3/uL (140-450); Red Blood Cells 2.71 10^6/uL (4.0-5.20); Red Cell Distribution Width 19.7 % (11.8-14.3); White Blood Cell 10.5 10^3/uL (4.4-10.8)
[2024-05-29 04:18] LABS: Alanine Aminotransferase 22 U/L (7-40); Albumin 2.9 g/dL (3.2-4.8); Alkaline Phosphatase 198 U/L (46-116); Anion Gap 8 (5-15); Aspartate Aminotransferase 42 U/L (13-40); BUN/Creatinine Ratio 48.8 (10.0-20.0); Bilirubin, Total 0.3 mg/dL (0.2-1.0); Blood Urea Nitrogen 21 mg/dL (9-23); Calcium 9.4 mg/dL (8.7-10.4); Carbon Dioxide 32 mmol/L (20-30); Chloride 106 mmol/L (98-107); Glucose 88 mg/dL (74-106); Magnesium 1.7 mg/dL (1.6-2.6); Potassium 3.1 mmol/L (3.5-5.1); Sodium 146 mmol/L (136-145); Total Protein 5.5 g/dL (5.7-8.2)
[2024-05-29 07:18] LABS: Base Excess 6.4 mmol/L (-2.0-2.0)
[2024-05-29] MEDS ORDERED: TPN PER PHARMACY 0 ML IV SCH (09:45)
[2024-05-29] MEDS: POTASSIUM CHL 20MEQ/100ML 100 ML IV SCH (14:07)
[2024-05-30] VITALS (109 sets, daily range): BP systolic 102–150; BP diastolic 26–67; PULSE 89–107; RESP 9–26; TEMP 97.7–99.7; O2SAT 92–100
[2024-05-30 07:40] LABS: Base Excess 6.6 mmol/L (-2.0-2.0)
[2024-05-30 14:05] LABS: Basophils # (auto) 0.1 10 ^3/uL (0-0.2); Basophils % (auto) 1.1 % (0.0-2.0); Nucleated Red Blood Cells % 0.1 %; White Blood Cell 9.9 10^3/uL (4.4-10.8)
[2024-05-30 14:07] LABS: Eosinophils # (auto) 0.4 10 ^3/uL (0-0.8); Eosinophils % (auto) 4.5 % (0.0-7.0); Hematocrit 24.9 % (36.0-46.0); Hemoglobin 7.9 g/dL (12.2-16.2); Lymphocytes # (auto) 1.9 10 ^3/uL (0.4-5.4); Lymphocytes % (auto) 19.2 % (10.0-50.0); Mean Corpuscular Hemoglobin 27.5 pg (28.0-32.0); Mean Corpuscular Hgb Conc. 31.9 g/dL (32.0-36.0); Mean Corpuscular Volume 86.4 fL (80.0-100.0); Monocytes % (auto) 9.8 % (0.0-12.0); Neutrophils # (auto) 6.5 10 ^3/uL (1.6-8.6); Neutrophils % (auto) 65.4 % (37.0-80.0); Platelet Count (auto) 468 10^3/uL (140-450); Red Blood Cells 2.88 10^6/uL (4.0-5.20); Red Cell Distribution Width 20.2 % (11.8-14.3)
[2024-05-30 14:14] LABS: Chloride 109 mmol/L (98-107); Sodium 148 mmol/L (136-145)
[2024-05-30 14:15] LABS: Anion Gap 7 (5-15); Carbon Dioxide 32 mmol/L (20-30)
[2024-05-30 14:16] LABS: Calcium 9.1 mg/dL (8.7-10.4)
[2024-05-30 14:19] LABS: INR 1.17 (0.9-1.15); Partial Thromboplastin Time 37.3 SEC (24.5-34.5); Prothrombin Time 12.3 sec (9.3-11.8)
[2024-05-30 14:21] LABS: BUN/Creatinine Ratio 41.7 (10.0-20.0); Blood Urea Nitrogen 20 mg/dL (9-23); Glucose 119 mg/dL (74-106)
[2024-05-30 14:58] LABS: Platelet Estimate Increased; Stomatocytes Few
[2024-05-30] MEDS: LIDOCAINE 1% (LOCAL ANESTH.) PF 5ml SDV ID ONE (15:30)
[2024-05-30] MEDS ORDERED: TPN PER PHARMACY 0 ML IV SCH (16:00)
[2024-05-30 16:28] LABS: Magnesium 1.5 mg/dL (1.6-2.6)
[2024-05-30 16:30] LABS: Phosphorus 4.2 mg/dL (2.4-5.1)
[2024-05-30] MEDS ORDERED: DEXTROSE (50%) 50ML SYRG IV SCH (16:45)
[2024-05-30] MEDS: ACCU-CHEK COMFORT CURVE STRIP VI SCH (17:30)
[2024-05-30] MEDS: InsuLIN REG 1unit/0.01ml Soln (100units/ml) SC SCH (17:35)
[2024-05-30] MEDS: POTASSIUM CHL 20MEQ/100ML 100 ML IV SCH (17:49)
[2024-05-30] MEDS: MAGNESIUM SULFATE 1GM/100ML 100 ML IV SCH (19:48)
[2024-05-30] MEDS: AMINO ACID INFUSION IN D10W 1,000 ML IV ONE (19:49)
[2024-05-30] MEDS: SODIUM CHLOR 0.9% PF (SALINE LOCK) 10ML VIAL/SYR IV SCH (21:42)
[2024-05-31] VITALS (107 sets, daily range): BP systolic 95–140; BP diastolic 26–73; PULSE 87–103; RESP 11–29; TEMP 97.3–100.4; O2SAT 94–100
[2024-05-31 04:52] LABS: Chloride 109 mmol/L (98-107); Potassium 3.1 mmol/L (3.5-5.1); Sodium 148 mmol/L (136-145)
[2024-05-31 04:53] LABS: Anion Gap 7 (5-15); Carbon Dioxide 32 mmol/L (20-30)
[2024-05-31 04:58] LABS: Glucose 145 mg/dL (74-106)
[2024-05-31 04:59] LABS: BUN/Creatinine Ratio 37.5 (10.0-20.0); Blood Urea Nitrogen 18 mg/dL (9-23); Magnesium 1.9 mg/dL (1.6-2.6)
[2024-05-31 05:15] LABS: Triglycerides 308 mg/dL (< 150)
[2024-05-31 05:18] LABS: Basophils # (auto) 0.1 10 ^3/uL (0-0.2); Eosinophils # (auto) 0.4 10 ^3/uL (0-0.8); Hematocrit 22.9 % (36.0-46.0); Lymphocytes # (auto) 1.8 10 ^3/uL (0.4-5.4); Neutrophils # (auto) 5.1 10 ^3/uL (1.6-8.6); White Blood Cell 8.3 10^3/uL (4.4-10.8)
[2024-05-31 05:21] LABS: Basophils % (auto) 0.9 % (0.0-2.0); Eosinophils % (auto) 4.5 % (0.0-7.0); Hemoglobin 7.4 g/dL (12.2-16.2); Lymphocytes % (auto) 21.5 % (10.0-50.0); Mean Corpuscular Hemoglobin 28.6 pg (28.0-32.0); Mean Corpuscular Hgb Conc. 32.5 g/dL (32.0-36.0); Mean Corpuscular Volume 87.9 fL (80.0-100.0); Monocytes # (auto) 0.9 10 ^3/uL (0-1.3); Neutrophils % (auto) 62.1 % (37.0-80.0); Nucleated Red Blood Cells % 0.1 %; Platelet Count (auto) 436 10^3/uL (140-450); Red Blood Cells 2.61 10^6/uL (4.0-5.20); Red Cell Distribution Width 19.6 % (11.8-14.3)
[2024-05-31] MEDS: FUROSEMIDE 40 MG/4 ML VIAL IV SCH (07:42)
[2024-05-31 08:11] LABS: Base Excess 3.1 mmol/L (-2.0-2.0)
[2024-05-31] MEDS ORDERED: POTASSIUM CHL 20MEQ/100ML 100 ML IV SCH (12:00)
[2024-05-31] MEDS: IRON SUCROSE COMPLEX 100 ML IV SCH (12:46)
[2024-05-31] MEDS: POTASSIUM CHL 20MEQ/100ML 100 ML IV SCH (12:51)
[2024-05-31] MEDS: POTASSIUM PHOSPHATE 22 MEQ in SODIUM CHL 0.9% 100 ML IV ONE (16:00)
[2024-05-31] MEDS: VANCOMYCIN 1GM/200ML 200 ML IV SCH (17:05)
[2024-05-31] MEDS: TPN PER PHARMACY IV NR (20:13)
[2024-06-01] VITALS (110 sets, daily range): BP systolic 91–133; BP diastolic 20–95; PULSE 82–114; RESP 4–31; TEMP 96.6–100.4; O2SAT 92–100
[2024-06-01 06:18] LABS: Basophils # (auto) 0.1 10 ^3/uL (0-0.2); Chloride 110 mmol/L (98-107); Hemoglobin 7.6 g/dL (12.2-16.2); Lymphocytes # (auto) 1.7 10 ^3/uL (0.4-5.4); Potassium 3.2 mmol/L (3.5-5.1); Sodium 148 mmol/L (136-145)
[2024-06-01 06:21] LABS: Anion Gap 7 (5-15); Carbon Dioxide 31 mmol/L (20-30)
[2024-06-01 06:22] LABS: Basophils % (auto) 1.3 % (0.0-2.0); Eosinophils # (auto) 0.3 10 ^3/uL (0-0.8); Eosinophils % (auto) 3.2 % (0.0-7.0); Hematocrit 23.5 % (36.0-46.0); Lymphocytes % (auto) 16.1 % (10.0-50.0); Mean Corpuscular Hemoglobin 28.2 pg (28.0-32.0); Mean Corpuscular Hgb Conc. 32.4 g/dL (32.0-36.0); Mean Corpuscular Volume 87.1 fL (80.0-100.0); Monocytes # (auto) 1.2 10 ^3/uL (0-1.3); Monocytes % (auto) 10.8 % (0.0-12.0); Neutrophils # (auto) 7.4 10 ^3/uL (1.6-8.6); Neutrophils % (auto) 68.6 % (37.0-80.0); Nucleated Red Blood Cells % 0.1 %; Platelet Count (auto) 415 10^3/uL (140-450); Red Cell Distribution Width 19.7 % (11.8-14.3); White Blood Cell 10.8 10^3/uL (4.4-10.8)
[2024-06-01 06:26] LABS: Glucose 208 mg/dL (74-106)
[2024-06-01 06:27] LABS: Alkaline Phosphatase 168 U/L (46-116); BUN/Creatinine Ratio 39.6 (10.0-20.0); Blood Urea Nitrogen 19 mg/dL (9-23); Magnesium 1.5 mg/dL (1.6-2.6)
[2024-06-01 06:28] LABS: Alanine Aminotransferase 20 U/L (7-40); Albumin 2.7 g/dL (3.2-4.8); Aspartate Aminotransferase 28 U/L (13-40)
[2024-06-01 06:29] LABS: Bilirubin, Total 0.3 mg/dL (0.2-1.0); Phosphorus 4.1 mg/dL (2.4-5.1); Total Protein 5.3 g/dL (5.7-8.2)
[2024-06-01 08:09] LABS: Base Excess 4.4 mmol/L (-2.0-2.0)
[2024-06-01] MEDS: GASTROGRAFIN 120 ML SOL ONE (11:39)
[2024-06-01] MEDS: POTASSIUM CHL 20MEQ/100ML 100 ML IV SCH (13:39)
[2024-06-01] MEDS: MAGNESIUM SULFATE 1GM/100ML 100 ML IV ONE (13:40)
[2024-06-01] MEDS: MAGNESIUM SULF IV NR (20:06)
[2024-06-01] MEDS: POTASSIUM PHOSPHATE IV NR (20:06)
[2024-06-01] MEDS: [UNRECOGNIZED DRUG - OTHER] IV NR (20:06)
[2024-06-02] VITALS (103 sets, daily range): BP systolic 94–127; BP diastolic 38–63; PULSE 84–110; RESP 14–33; TEMP 96.8–100.4; O2SAT 90–100
[2024-06-02 04:00] LABS: Basophils # (auto) 0.1 10 ^3/uL (0-0.2); Basophils % (auto) 1.2 % (0.0-2.0); Eosinophils # (auto) 0.4 10 ^3/uL (0-0.8); Eosinophils % (auto) 3.3 % (0.0-7.0); Hematocrit 23.4 % (36.0-46.0); Hemoglobin 7.5 g/dL (12.2-16.2); Lymphocytes # (auto) 2.2 10 ^3/uL (0.4-5.4); Lymphocytes % (auto) 18.7 % (10.0-50.0); Mean Corpuscular Hemoglobin 27.7 pg (28.0-32.0); Mean Corpuscular Volume 86.4 fL (80.0-100.0); Monocytes # (auto) 1.6 10 ^3/uL (0-1.3); Monocytes % (auto) 13.2 % (0.0-12.0); Neutrophils # (auto) 7.6 10 ^3/uL (1.6-8.6); Neutrophils % (auto) 63.6 % (37.0-80.0); Nucleated Red Blood Cells % 0.1 %; Platelet Count (auto) 418 10^3/uL (140-450); Red Blood Cells 2.71 10^6/uL (4.0-5.20); Red Cell Distribution Width 20.6 % (11.8-14.3)
[2024-06-02 04:15] LABS: INR 1.18 (0.9-1.15); Partial Thromboplastin Time 33.5 SEC (24.5-34.5); Prothrombin Time 12.4 sec (9.3-11.8)
[2024-06-02 04:19] LABS: Alanine Aminotransferase 19 U/L (7-40); Alkaline Phosphatase 164 U/L (46-116); Anion Gap 7 (5-15); Blood Urea Nitrogen 20 mg/dL (9-23); Calcium 9.1 mg/dL (8.7-10.4); Carbon Dioxide 30 mmol/L (20-30); Chloride 115 mmol/L (98-107); Glucose 185 mg/dL (74-106); Magnesium 1.9 mg/dL (1.6-2.6); Sodium 152 mmol/L (136-145)
[2024-06-02 04:20] LABS: Albumin 2.7 g/dL (3.2-4.8); Aspartate Aminotransferase 24 U/L (13-40); Bilirubin, Total 0.3 mg/dL (0.2-1.0); Phosphorus 4.4 mg/dL (2.4-5.1); Total Protein 5.3 g/dL (5.7-8.2)
[2024-06-02 07:21] LABS: Base Excess 2.8 mmol/L (-2.0-2.0)
[2024-06-02] MEDS: POTASSIUM CHL 20MEQ/100ML 100 ML IV SCH (08:01)
[2024-06-02] MEDS: LIDOCAINE W/ EPINEPHRINE 1% 20ML VIAL ONE (10:37)
[2024-06-02] MEDS: BUPIVACAINE 0.25% INJ 50ML VIAL ONE (10:37)
[2024-06-02] MEDS ORDERED: fentaNYL CITRATE 100 MCG/2 ML VL ONE (10:39)
[2024-06-02] MEDS ORDERED: HYDROmorphone HCL 2 MG/ML VL/or syr ONE (10:39)
[2024-06-02] MEDS ORDERED: MIDAZOLAM HCL 2MG/2ML 2ml VIAL (1mg/ml) ONE (10:39)
[2024-06-02] MEDS: LIDOCAINE HCL 1%(LOCAL ANESTH.) INJ 50ML MDV IJ ONE (11:30)
[2024-06-02] MEDS: BUPIVACAINE 0.25% INJ 50ML VIAL IJ ONE (11:30)
[2024-06-02] MEDS: TPN PER PHARMACY IV NR (20:59)
[2024-06-03] VITALS (91 sets, daily range): BP systolic 108–157; BP diastolic 47–77; PULSE 69–92; RESP 15–28; TEMP 97.7–98.6; O2SAT 94–100
[2024-06-03 03:51] LABS: Basophils # (auto) 0.1 10 ^3/uL (0-0.2); Eosinophils # (auto) 0 10 ^3/uL (0-0.8); Hemoglobin 7.3 g/dL (12.2-16.2); Lymphocytes # (auto) 1.6 10 ^3/uL (0.4-5.4); Monocytes # (auto) 0.6 10 ^3/uL (0-1.3)
[2024-06-03 03:53] LABS: Basophils % (auto) 0.5 % (0.0-2.0); Hematocrit 23.3 % (36.0-46.0); Lymphocytes % (auto) 12.5 % (10.0-50.0); Mean Corpuscular Hemoglobin 27.7 pg (28.0-32.0); Mean Corpuscular Hgb Conc. 31.2 g/dL (32.0-36.0); Mean Corpuscular Volume 88.8 fL (80.0-100.0); Monocytes % (auto) 4.8 % (0.0-12.0); Neutrophils # (auto) 10.7 10 ^3/uL (1.6-8.6); Neutrophils % (auto) 82.2 % (37.0-80.0); Nucleated Red Blood Cells % 0.1 %; Platelet Count (auto) 422 10^3/uL (140-450); Red Blood Cells 2.62 10^6/uL (4.0-5.20); Red Cell Distribution Width 20.7 % (11.8-14.3)
[2024-06-03 04:09] LABS: Alanine Aminotransferase 16 U/L (7-40); Albumin 2.9 g/dL (3.2-4.8); Alkaline Phosphatase 183 U/L (46-116); Anion Gap 8 (5-15); Aspartate Aminotransferase 19 U/L (13-40); BUN/Creatinine Ratio 47.7 (10.0-20.0); Calcium 9.3 mg/dL (8.7-10.4); Carbon Dioxide 26 mmol/L (20-30); Chloride 113 mmol/L (98-107); Magnesium 2.1 mg/dL (1.6-2.6); Potassium 4.1 mmol/L (3.5-5.1)
[2024-06-03 04:10] LABS: Bilirubin, Total 0.2 mg/dL (0.2-1.0); Phosphorus 3.3 mg/dL (2.4-5.1); Total Protein 5.5 g/dL (5.7-8.2)
[2024-06-03 04:11] LABS: Blood Urea Nitrogen 31 mg/dL (9-23); Glucose 437 mg/dL (74-106); Sodium 147 mmol/L (136-145)
[2024-06-03] MEDS: INSULIN LANTUS (GLARGINE) 1 /0.01ml (100units/ml) SC ONE (05:29)
[2024-06-03] MEDS ORDERED: DEXTROSE (50%) 50ML SYRG IV PRN (08:00)
[2024-06-03 08:05] LABS: Base Excess 1.4 mmol/L (-2.0-2.0)
[2024-06-03] MEDS: ACCU-CHEK COMFORT CURVE STRIP VI SCH ×2 (09:14→12:13)
[2024-06-03] MEDS: InsuLIN REG 1unit/0.01ml Soln (100units/ml) SC SCH ×2 (09:24→12:13)
[2024-06-03] MEDS ORDERED: DEXTROSE (50%) 50ML SYRG IV SCH (11:15)
[2024-06-03] MEDS: TPN PER PHARMACY IV NR (20:25)
[2024-06-04] VITALS (36 sets, daily range): BP systolic 114–151; BP diastolic 49–79; PULSE 64–91; RESP 14–93; TEMP 97.7–98.4; O2SAT 96–100
[2024-06-04 04:08] LABS: Basophils # (auto) 0 10 ^3/uL (0-0.2); Basophils % (auto) 0.3 % (0.0-2.0); Eosinophils # (auto) 0 10 ^3/uL (0-0.8); Hematocrit 22.2 % (36.0-46.0); Hemoglobin 7.2 g/dL (12.2-16.2); Lymphocytes # (auto) 1.6 10 ^3/uL (0.4-5.4); Lymphocytes % (auto) 11.9 % (10.0-50.0); Mean Corpuscular Hemoglobin 28.3 pg (28.0-32.0); Mean Corpuscular Hgb Conc. 32.2 g/dL (32.0-36.0); Mean Corpuscular Volume 88.1 fL (80.0-100.0); Monocytes # (auto) 1.6 10 ^3/uL (0-1.3); Monocytes % (auto) 12.1 % (0.0-12.0); Neutrophils # (auto) 9.9 10 ^3/uL (1.6-8.6); Neutrophils % (auto) 75.7 % (37.0-80.0); Nucleated Red Blood Cells % 0.1 %; Platelet Count (auto) 401 10^3/uL (140-450); Red Blood Cells 2.53 10^6/uL (4.0-5.20); Red Cell Distribution Width 20.3 % (11.8-14.3); White Blood Cell 13.1 10^3/uL (4.4-10.8)
[2024-06-04 04:37] LABS: Alanine Aminotransferase 19 U/L (7-40); Albumin 2.9 g/dL (3.2-4.8); Alkaline Phosphatase 171 U/L (46-116); Anion Gap 9 (5-15); Aspartate Aminotransferase 18 U/L (13-40); BUN/Creatinine Ratio 64.3 (10.0-20.0); Blood Urea Nitrogen 36 mg/dL (9-23); Calcium 9.2 mg/dL (8.7-10.4); Carbon Dioxide 25 mmol/L (20-30); Chloride 115 mmol/L (98-107); Glucose 266 mg/dL (74-106); Potassium 3.3 mmol/L (3.5-5.1); Sodium 149 mmol/L (136-145)
[2024-06-04 04:38] LABS: Bilirubin, Total 0.2 mg/dL (0.2-1.0); Phosphorus 2.9 mg/dL (2.4-5.1); Total Protein 5.5 g/dL (5.7-8.2)
[2024-06-04] MEDS: POTASSIUM CHL 20MEQ/100ML 100 ML IV ONE (06:02)
[2024-06-04] MEDS: TPN PER PHARMACY IV NR (20:28)
[2024-06-04] MEDS: INSULIN LANTUS (GLARGINE) 1 /0.01ml (100units/ml) SC SCH (22:22)
[2024-06-05] VITALS (40 sets, daily range): BP systolic 115–148; BP diastolic 54–81; PULSE 71–100; RESP 16–32; TEMP 98.4–99.1; O2SAT 94–100
[2024-06-05 03:55] LABS: Hemoglobin 7.9 g/dL (12.2-16.2); Mean Corpuscular Hemoglobin 28.2 pg (28.0-32.0); Red Blood Cells 2.81 10^6/uL (4.0-5.20)
[2024-06-05 03:57] LABS: Hematocrit 24.3 % (36.0-46.0); Mean Corpuscular Hgb Conc. 32.6 g/dL (32.0-36.0); Mean Corpuscular Volume 86.4 fL (80.0-100.0); Platelet Count (auto) 475 10^3/uL (140-450); White Blood Cell 14.6 10^3/uL (4.4-10.8)
[2024-06-05 04:04] LABS: Red Cell Distribution Width 20.6 % (11.8-14.3)
[2024-06-05 04:05] LABS: Basophils % (manual) 0 (0.0-2.0); Blast Cells 0; Eosinophils % (manual) 0 (0-7); Metamyelocytes % 0; Myelocytes % 0; Promyelocytes % 0; Reactive Lymphocytes 0
[2024-06-05 04:15] LABS: Chloride 115 mmol/L (98-107); Potassium 3.5 mmol/L (3.5-5.1); Sodium 149 mmol/L (136-145)
[2024-06-05 04:16] LABS: Anion Gap 8 (5-15); Carbon Dioxide 26 mmol/L (20-30)
[2024-06-05 04:17] LABS: Calcium 9.4 mg/dL (8.7-10.4)
[2024-06-05 04:21] LABS: GFR African American 143 mL/min; GFR Non-African American 118 mL/min; Glucose 140 mg/dL (74-106)
[2024-06-05 04:22] LABS: Albumin 3.1 g/dL (3.2-4.8); BUN/Creatinine Ratio 75.9 (10.0-20.0); Blood Urea Nitrogen 41 mg/dL (9-23); Magnesium 1.6 mg/dL (1.6-2.6)
[2024-06-05 04:24] LABS: Phosphorus 3.8 mg/dL (2.4-5.1)
[2024-06-05 04:49] LABS: Anisocytosis Slight; Band Neutrophils % (manual) 5; Lymphocytes % (manual) 14 (10.0-50.0); Monocytes % (manual) 10 (0-12); Platelet Estimate Increased
[2024-06-05] MEDS: MAGNESIUM SULFATE 1GM/100ML 100 ML IV SCH (10:00)
[2024-06-05] MEDS: TPN PER PHARMACY IV NR (20:33)
[2024-06-06] VITALS (36 sets, daily range): BP systolic 119–165; BP diastolic 47–98; PULSE 79–93; RESP 13–37; TEMP 98.4–98.8; O2SAT 95–100
[2024-06-06 03:56] LABS: Hematocrit 26.9 % (36.0-46.0); Hemoglobin 8.6 g/dL (12.2-16.2); Mean Corpuscular Hgb Conc. 32.1 g/dL (32.0-36.0); Mean Corpuscular Volume 87.4 fL (80.0-100.0); Platelet Count (auto) 512 10^3/uL (140-450); Red Blood Cells 3.08 10^6/uL (4.0-5.20); White Blood Cell 14.5 10^3/uL (4.4-10.8)
[2024-06-06 03:57] LABS: Basophils % (manual) 0 (0.0-2.0); Blast Cells 0; Eosinophils % (manual) 0 (0-7); Metamyelocytes % 0; Myelocytes % 0; Promyelocytes % 0; Reactive Lymphocytes 0; Red Cell Distribution Width 20.7 % (11.8-14.3)
[2024-06-06 04:11] LABS: Alanine Aminotransferase 89 U/L (7-40); Albumin 3.3 g/dL (3.2-4.8); Anion Gap 9 (5-15); Aspartate Aminotransferase 112 U/L (13-40); Blood Urea Nitrogen 34 mg/dL (9-23); Calcium 9.2 mg/dL (8.7-10.4); Carbon Dioxide 25 mmol/L (20-30); Chloride 112 mmol/L (98-107); Glucose 135 mg/dL (74-106); Magnesium 2.1 mg/dL (1.6-2.6); Potassium 3.7 mmol/L (3.5-5.1); Sodium 146 mmol/L (136-145); Triglycerides 558 mg/dL (< 150)
[2024-06-06 04:12] LABS: Bilirubin, Total 0.5 mg/dL (0.2-1.0); Phosphorus 3.6 mg/dL (2.4-5.1); Total Protein 6.1 g/dL (5.7-8.2)
[2024-06-06 04:36] LABS: Alkaline Phosphatase 266 U/L (46-116)
[2024-06-06 05:37] LABS: Anisocytosis Slight; Band Neutrophils % (manual) 5; Lymphocytes % (manual) 17 (10.0-50.0); Monocytes % (manual) 13 (0-12); Platelet Estimate Increased
[2024-06-06 05:38] LABS: Large Platelets FEW
[2024-06-06] MEDS: VANCOMYCIN 1GM/200ML 200 ML IV SCH (09:59)
[2024-06-06] MEDS: ALBUTEROL SULF 2.5 MG/0.5ML(0.5%) NEB SOLN ONE (11:03)
[2024-06-06] MEDS: TPN PER PHARMACY IV NR (20:50)
[2024-06-06] MEDS: ALBUTEROL SULF 2.5 MG/0.5ML(0.5%) NEB SOLN NEB PRN (22:11)
[2024-06-07] VITALS (30 sets, daily range): BP systolic 133–175; BP diastolic 52–77; PULSE 85–102; RESP 17–32; TEMP 99.3–99.6; O2SAT 97–100
[2024-06-07 04:40] LABS: Hemoglobin 8.9 g/dL (12.2-16.2); White Blood Cell 13.6 10^3/uL (4.4-10.8)
[2024-06-07 04:44] LABS: Hematocrit 27.4 % (36.0-46.0); Mean Corpuscular Hemoglobin 28.7 pg (28.0-32.0); Mean Corpuscular Hgb Conc. 32.6 g/dL (32.0-36.0); Mean Corpuscular Volume 88.1 fL (80.0-100.0); Platelet Count (auto) 453 10^3/uL (140-450); Red Blood Cells 3.11 10^6/uL (4.0-5.20)
[2024-06-07 04:50] LABS: Red Cell Distribution Width 20.9 % (11.8-14.3)
[2024-06-07 04:52] LABS: Basophils % (manual) 0 (0.0-2.0); Blast Cells 0; Metamyelocytes % 0; Promyelocytes % 0; Reactive Lymphocytes 0
[2024-06-07 04:57] LABS: Alanine Aminotransferase 77 U/L (7-40); Albumin 3.3 g/dL (3.2-4.8); Alkaline Phosphatase 284 U/L (46-116); Anion Gap 8 (5-15); Aspartate Aminotransferase 71 U/L (13-40); BUN/Creatinine Ratio 59.6 (10.0-20.0); Blood Urea Nitrogen 34 mg/dL (9-23); Calcium 9.1 mg/dL (8.7-10.4); Carbon Dioxide 26 mmol/L (20-30); Chloride 107 mmol/L (98-107); Glucose 187 mg/dL (74-106); Magnesium 2.1 mg/dL (1.6-2.6); Sodium 141 mmol/L (136-145)
[2024-06-07 04:58] LABS: Bilirubin, Total 0.5 mg/dL (0.2-1.0); Phosphorus 3.3 mg/dL (2.4-5.1); Total Protein 5.9 g/dL (5.7-8.2)
[2024-06-07 06:03] LABS: Anisocytosis Slight; Band Neutrophils % (manual) 2; Eosinophils % (manual) 2 (0-7); Lymphocytes % (manual) 20 (10.0-50.0); Monocytes % (manual) 11 (0-12); Myelocytes % 1; Platelet Estimate Increased; Stomatocytes Few
[2024-06-07] MEDS ORDERED: Glucerna 1.2 Cal 1Liter BOTTLE GT SCH (11:45)
[2024-06-07] MEDS: LISINOPRIL 5 MG TAB PO ONE (17:00)
[2024-06-07] MEDS ORDERED: hydrALAZINE HCL 20 MG/ML VL IV SCH (18:00)
[2024-06-07] MEDS: TPN PER PHARMACY IV NR (20:07)
[2024-06-07] MEDS: hydrALAZINE HCL 20 MG/ML VL IV PRN (22:02)
[2024-06-08] VITALS (49 sets, daily range): BP systolic 125–177; BP diastolic 41–77; PULSE 86–117; RESP 16–97; TEMP 98–100.4; O2SAT 23–100
[2024-06-08 03:56] LABS: Basophils # (auto) 0.1 10 ^3/uL (0-0.2); Basophils % (auto) 0.7 % (0.0-2.0); Eosinophils # (auto) 0.4 10 ^3/uL (0-0.8); Eosinophils % (auto) 3.1 % (0.0-7.0); Hematocrit 27.5 % (36.0-46.0); Hemoglobin 8.9 g/dL (12.2-16.2); Lymphocytes % (auto) 15.1 % (10.0-50.0); Mean Corpuscular Hemoglobin 28.6 pg (28.0-32.0); Mean Corpuscular Hgb Conc. 32.3 g/dL (32.0-36.0); Mean Corpuscular Volume 88.3 fL (80.0-100.0); Monocytes # (auto) 1.4 10 ^3/uL (0-1.3); Monocytes % (auto) 10.5 % (0.0-12.0); Neutrophils # (auto) 9.1 10 ^3/uL (1.6-8.6); Neutrophils % (auto) 70.6 % (37.0-80.0); Nucleated Red Blood Cells % 0.2 %; Platelet Count (auto) 441 10^3/uL (140-450); Red Blood Cells 3.11 10^6/uL (4.0-5.20)
[2024-06-08 04:01] LABS: Red Cell Distribution Width 21.2 % (11.8-14.3)
[2024-06-08 04:10] LABS: Alanine Aminotransferase 62 U/L (7-40); Albumin 3.3 g/dL (3.2-4.8); Alkaline Phosphatase 294 U/L (46-116); Anion Gap 10 (5-15); Aspartate Aminotransferase 48 U/L (13-40); BUN/Creatinine Ratio 54.3 (10.0-20.0); Blood Urea Nitrogen 25 mg/dL (9-23); Carbon Dioxide 25 mmol/L (20-30); Chloride 107 mmol/L (98-107); Glucose 127 mg/dL (74-106); Magnesium 1.8 mg/dL (1.6-2.6); Potassium 3.6 mmol/L (3.5-5.1); Sodium 142 mmol/L (136-145)
[2024-06-08 04:11] LABS: Bilirubin, Total 0.5 mg/dL (0.2-1.0); Phosphorus 2.8 mg/dL (2.4-5.1); Total Protein 5.8 g/dL (5.7-8.2)
[2024-06-08] MEDS: LISINOPRIL 5 MG TAB PO SCH (10:20)
[2024-06-08] MEDS: TPN PER PHARMACY IV NR (21:00)
[2024-06-09] VITALS (62 sets, daily range): BP systolic 115–190; BP diastolic 39–70; PULSE 74–106; RESP 10–41; TEMP 98.2–99.8; O2SAT 92–100
[2024-06-09 04:14] LABS: Basophils # (auto) 0.2 10 ^3/uL (0-0.2); Eosinophils # (auto) 0.4 10 ^3/uL (0-0.8); Eosinophils % (auto) 4.1 % (0.0-7.0); Hematocrit 26.5 % (36.0-46.0); Hemoglobin 8.6 g/dL (12.2-16.2); Lymphocytes % (auto) 20.5 % (10.0-50.0); Mean Corpuscular Hemoglobin 28.5 pg (28.0-32.0); Mean Corpuscular Hgb Conc. 32.6 g/dL (32.0-36.0); Mean Corpuscular Volume 87.5 fL (80.0-100.0); Monocytes # (auto) 1.1 10 ^3/uL (0-1.3); Monocytes % (auto) 10.9 % (0.0-12.0); Neutrophils # (auto) 6.2 10 ^3/uL (1.6-8.6); Neutrophils % (auto) 62.5 % (37.0-80.0); Nucleated Red Blood Cells % 0.3 %; Platelet Count (auto) 448 10^3/uL (140-450); Red Blood Cells 3.02 10^6/uL (4.0-5.20); White Blood Cell 9.9 10^3/uL (4.4-10.8)
[2024-06-09 04:16] LABS: Alanine Aminotransferase 49 U/L (7-40); Albumin 3.2 g/dL (3.2-4.8); Alkaline Phosphatase 286 U/L (46-116); Anion Gap 7 (5-15); Aspartate Aminotransferase 33 U/L (13-40); Blood Urea Nitrogen 22 mg/dL (9-23); Carbon Dioxide 24 mmol/L (20-30); Chloride 109 mmol/L (98-107); Glucose 104 mg/dL (74-106); Magnesium 1.5 mg/dL (1.6-2.6); Potassium 3.4 mmol/L (3.5-5.1); Sodium 140 mmol/L (136-145)
[2024-06-09 04:17] LABS: Phosphorus 2.8 mg/dL (2.4-5.1); Total Protein 5.6 g/dL (5.7-8.2)
[2024-06-09 04:38] LABS: Bilirubin, Total 0.5 mg/dL (0.2-1.0)
[2024-06-09] MEDS: MAGNESIUM SULFATE 1GM/100ML 100 ML IV SCH (06:07)
[2024-06-09] MEDS: POTASSIUM CHL 20MEQ/100ML 100 ML IV SCH (06:07)
[2024-06-09] MEDS: FLORASTOR (S. BOULARDII) 250 MG CAP PO SCH (12:10)
[2024-06-09] MEDS: metroNIDAZOLE 500 MG TAB PO SCH (14:24)
[2024-06-09] MEDS: TPN PER PHARMACY IV NR (22:03)
[2024-06-10] VITALS (53 sets, daily range): BP systolic 128–174; BP diastolic 35–74; PULSE 78–104; RESP 11–26; TEMP 98.3–99.2; O2SAT 96–100
[2024-06-10] MEDS: LABETALOL HCL 5 MG/ML ML 20ML VIAL IV PRN (02:06)
[2024-06-10 04:07] LABS: Basophils # (auto) 0.2 10 ^3/uL (0-0.2); Basophils % (auto) 2.1 % (0.0-2.0); Eosinophils # (auto) 0.3 10 ^3/uL (0-0.8); Eosinophils % (auto) 3.7 % (0.0-7.0); Hematocrit 27.8 % (36.0-46.0); Hemoglobin 8.9 g/dL (12.2-16.2); Lymphocytes # (auto) 1.6 10 ^3/uL (0.4-5.4); Lymphocytes % (auto) 18.5 % (10.0-50.0); Mean Corpuscular Hemoglobin 29.2 pg (28.0-32.0); Mean Corpuscular Volume 91.4 fL (80.0-100.0); Monocytes # (auto) 0.9 10 ^3/uL (0-1.3); Monocytes % (auto) 10.7 % (0.0-12.0); Neutrophils # (auto) 5.7 10 ^3/uL (1.6-8.6); Nucleated Red Blood Cells % 0.2 %; Platelet Count (auto) 433 10^3/uL (140-450); Red Blood Cells 3.04 10^6/uL (4.0-5.20); Red Cell Distribution Width 22.8 % (11.8-14.3); White Blood Cell 8.8 10^3/uL (4.4-10.8)
[2024-06-10 04:29] LABS: Alanine Aminotransferase 38 U/L (7-40); Albumin 3.1 g/dL (3.2-4.8); Alkaline Phosphatase 264 U/L (46-116); Anion Gap 11 (5-15); Aspartate Aminotransferase 27 U/L (13-40); BUN/Creatinine Ratio 35.3 (10.0-20.0); Bilirubin, Total 0.4 mg/dL (0.2-1.0); Blood Urea Nitrogen 12 mg/dL (9-23); Calcium 8.9 mg/dL (8.7-10.4); Carbon Dioxide 20 mmol/L (20-30); Chloride 105 mmol/L (98-107); Glucose 129 mg/dL (74-106); Magnesium 1.8 mg/dL (1.6-2.6); Phosphorus 2.4 mg/dL (2.4-5.1); Potassium 3.4 mmol/L (3.5-5.1); Sodium 136 mmol/L (136-145); Total Protein 5.5 g/dL (5.7-8.2)
[2024-06-10] MEDS: POTASSIUM PHOSPHATE 44 MEQ in D5W 5% 250 ML IV ONE (13:32)
[2024-06-10] MEDS: TPN PER PHARMACY IV NR (21:45)
[2024-06-11] VITALS (49 sets, daily range): BP systolic 125–179; BP diastolic 37–82; PULSE 86–100; RESP 12–37; TEMP 98.2–99.9; O2SAT 90–100
[2024-06-11 03:57] LABS: Alanine Aminotransferase 33 U/L (7-40); Albumin 3.2 g/dL (3.2-4.8); Alkaline Phosphatase 271 U/L (46-116); Anion Gap 9 (5-15); Aspartate Aminotransferase 27 U/L (13-40); BUN/Creatinine Ratio 32.4 (10.0-20.0); Blood Urea Nitrogen 12 mg/dL (9-23); Carbon Dioxide 23 mmol/L (20-30); Chloride 105 mmol/L (98-107); Glucose 129 mg/dL (74-106); Magnesium 1.5 mg/dL (1.6-2.6); Potassium 3.4 mmol/L (3.5-5.1); Sodium 137 mmol/L (136-145)
[2024-06-11 03:58] LABS: Bilirubin, Total 0.4 mg/dL (0.2-1.0); Phosphorus 2.6 mg/dL (2.4-5.1); Total Protein 5.6 g/dL (5.7-8.2)
[2024-06-11] MEDS: MAGNESIUM SULFATE 1GM/100ML 100 ML IV ONE (07:43)
[2024-06-11] MEDS: POTASSIUM CHL 20MEQ/100ML 100 ML IV SCH (08:43)
[2024-06-11] MEDS: DIPHENOXYLATE W/ATROPINE 2.5 MG TAB NG PRN (13:54)
[2024-06-11] MEDS: TPN PER PHARMACY IV NR (20:39)
[2024-06-12] VITALS (21 sets, daily range): BP systolic 125–159; BP diastolic 44–61; PULSE 92–104; RESP 19–32; TEMP 99.2–101.5; O2SAT 96–99
[2024-06-12 04:55] LABS: Basophils # (auto) 0.6 10 ^3/uL (0-0.2); Basophils % (auto) 4.8 % (0.0-2.0); Eosinophils # (auto) 0.3 10 ^3/uL (0-0.8); Eosinophils % (auto) 2.6 % (0.0-7.0); Hematocrit 27.9 % (36.0-46.0); Hemoglobin 9.1 g/dL (12.2-16.2); Lymphocytes # (auto) 2.4 10 ^3/uL (0.4-5.4); Lymphocytes % (auto) 20.1 % (10.0-50.0); Mean Corpuscular Hemoglobin 28.6 pg (28.0-32.0); Mean Corpuscular Hgb Conc. 32.7 g/dL (32.0-36.0); Mean Corpuscular Volume 87.3 fL (80.0-100.0); Monocytes # (auto) 1.1 10 ^3/uL (0-1.3); Monocytes % (auto) 9.6 % (0.0-12.0); Neutrophils # (auto) 7.5 10 ^3/uL (1.6-8.6); Neutrophils % (auto) 62.9 % (37.0-80.0); Platelet Count (auto) 431 10^3/uL (140-450); White Blood Cell 11.9 10^3/uL (4.4-10.8)
[2024-06-12 05:19] LABS: Alanine Aminotransferase 31 U/L (7-40); Albumin 3.1 g/dL (3.2-4.8); Alkaline Phosphatase 276 U/L (46-116); Anion Gap 7 (5-15); Aspartate Aminotransferase 27 U/L (13-40); BUN/Creatinine Ratio 36.8 (10.0-20.0); Blood Urea Nitrogen 14 mg/dL (9-23); Calcium 8.9 mg/dL (8.7-10.4); Carbon Dioxide 23 mmol/L (20-30); Chloride 105 mmol/L (98-107); Glucose 129 mg/dL (74-106); Magnesium 1.7 mg/dL (1.6-2.6); Phosphorus 2.7 mg/dL (2.4-5.1); Potassium 3.8 mmol/L (3.5-5.1); Sodium 135 mmol/L (136-145)
[2024-06-12 05:20] LABS: Bilirubin, Total 0.4 mg/dL (0.2-1.0); Total Protein 5.4 g/dL (5.7-8.2)
[2024-06-12 05:23] LABS: Red Cell Distribution Width 22.4 % (11.8-14.3)
[2024-06-12] MEDS: Vital AF 1.2 Cal 1 liter bottle GT SCH (12:04)
[2024-06-12] MEDS: levoFLOXacin 500MG 100 ML IV ONE (15:05)
[2024-06-12] MEDS: FAMOTIDINE (10MG/ML) 2ML VL IV ONE (15:05)
[2024-06-13] VITALS (18 sets, daily range): BP systolic 102–145; BP diastolic 35–51; PULSE 93–105; RESP 16–43; TEMP 98.7–99.8; O2SAT 88–100
[2024-06-13 04:48] LABS: Basophils # (auto) 0.4 10 ^3/uL (0-0.2); Basophils % (auto) 3.6 % (0.0-2.0); Eosinophils # (auto) 0.4 10 ^3/uL (0-0.8); Eosinophils % (auto) 3.2 % (0.0-7.0); Hematocrit 28.7 % (36.0-46.0); Hemoglobin 9.3 g/dL (12.2-16.2); Lymphocytes # (auto) 2.2 10 ^3/uL (0.4-5.4); Lymphocytes % (auto) 19.9 % (10.0-50.0); Mean Corpuscular Hemoglobin 28.1 pg (28.0-32.0); Mean Corpuscular Hgb Conc. 32.3 g/dL (32.0-36.0); Mean Corpuscular Volume 86.9 fL (80.0-100.0); Monocytes # (auto) 1.1 10 ^3/uL (0-1.3); Monocytes % (auto) 9.7 % (0.0-12.0); Neutrophils # (auto) 7.1 10 ^3/uL (1.6-8.6); Neutrophils % (auto) 63.6 % (37.0-80.0); Platelet Count (auto) 375 10^3/uL (140-450); Red Blood Cells 3.31 10^6/uL (4.0-5.20); White Blood Cell 11.2 10^3/uL (4.4-10.8)
[2024-06-13 04:58] LABS: Chloride 105 mmol/L (98-107); Potassium 3.6 mmol/L (3.5-5.1); Sodium 136 mmol/L (136-145)
[2024-06-13 04:59] LABS: Anion Gap 5 (5-15); Calcium 8.9 mg/dL (8.7-10.4); Carbon Dioxide 26 mmol/L (20-30)
[2024-06-13 05:04] LABS: BUN/Creatinine Ratio 33.3 (10.0-20.0); Blood Urea Nitrogen 13 mg/dL (9-23); Glucose 122 mg/dL (74-106)
[2024-06-13 05:05] LABS: Magnesium 1.6 mg/dL (1.6-2.6)
[2024-06-13] MEDS: FAMOTIDINE (10MG/ML) 2ML VL IV SCH (10:03)
[2024-06-13] MEDS: levoFLOXacin 500MG 100 ML IV SCH (10:04)
[2024-06-13] MEDS: PSYLLIUM PWD 5.8GM PKG GT ONE (12:07)
[2024-06-13] MEDS: PSYLLIUM PWD 5.8GM PKG GT SCH (21:55)
[2024-06-14] VITALS (13 sets, daily range): BP systolic 105–154; BP diastolic 36–69; PULSE 92–108; RESP 15–26; TEMP 97.9–99.1; O2SAT 93–99
[2024-06-15] VITALS (13 sets, daily range): BP systolic 125–150; BP diastolic 45–71; PULSE 93–112; RESP 16–26; TEMP 98.1–99.9; O2SAT 93–100
[2024-06-15 05:00] LABS: Basophils # (auto) 0.4 10 ^3/uL (0-0.2); Basophils % (auto) 3.3 % (0.0-2.0); Eosinophils # (auto) 0.5 10 ^3/uL (0-0.8); Eosinophils % (auto) 4.3 % (0.0-7.0); Hematocrit 28.5 % (36.0-46.0); Hemoglobin 9.3 g/dL (12.2-16.2); Lymphocytes # (auto) 2.3 10 ^3/uL (0.4-5.4); Lymphocytes % (auto) 19.7 % (10.0-50.0); Mean Corpuscular Hemoglobin 28.5 pg (28.0-32.0); Mean Corpuscular Hgb Conc. 32.7 g/dL (32.0-36.0); Monocytes # (auto) 1.3 10 ^3/uL (0-1.3); Monocytes % (auto) 11.7 % (0.0-12.0); Platelet Count (auto) 319 10^3/uL (140-450); Red Blood Cells 3.28 10^6/uL (4.0-5.20); White Blood Cell 11.5 10^3/uL (4.4-10.8)
[2024-06-15 05:05] LABS: Red Cell Distribution Width 21.8 % (11.8-14.3)
[2024-06-15 05:14] LABS: Alanine Aminotransferase 23 U/L (7-40); Alkaline Phosphatase 273 U/L (46-116); Anion Gap 5 (5-15); Aspartate Aminotransferase 21 U/L (13-40); BUN/Creatinine Ratio 31.4 (10.0-20.0); Bilirubin, Total 0.4 mg/dL (0.2-1.0); Blood Urea Nitrogen 11 mg/dL (9-23); Calcium 9.1 mg/dL (8.7-10.4); Carbon Dioxide 25 mmol/L (20-30); Chloride 104 mmol/L (98-107); Glucose 128 mg/dL (74-106); Magnesium 1.2 mg/dL (1.6-2.6); Potassium 3.5 mmol/L (3.5-5.1); Sodium 134 mmol/L (136-145)
[2024-06-15 05:15] LABS: Total Protein 4.9 g/dL (5.7-8.2)
[2024-06-15] MEDS: PIPERACILLIN-TAZOB 3.375GM 100 ML IV ONE (10:47)
[2024-06-15] MEDS: CHOLESTYRAMINE 4 GM POWDER GT SCH (12:37)
[2024-06-15] MEDS ORDERED: PIPERACILLIN-TAZOB 3.375GM 100 ML IV SCH (14:00)
[2024-06-15] MEDS: PIPERACILLIN-TAZOB 3.375GM 100 ML IV SCH (17:25)
[2024-06-15] MEDS: MORPHINE SULFATE INJ 2 MG/ml SYRG IV PRN (21:26)
[2024-06-16] VITALS (23 sets, daily range): BP systolic 103–167; BP diastolic 45–100; PULSE 90–109; RESP 11–26; TEMP 97.5–99.3; O2SAT 96–100
[2024-06-16 05:49] LABS: Chloride 104 mmol/L (98-107); Potassium 3.4 mmol/L (3.5-5.1); Sodium 135 mmol/L (136-145)
[2024-06-16 05:50] LABS: Anion Gap 7 (5-15); Calcium 9.3 mg/dL (8.7-10.4); Carbon Dioxide 24 mmol/L (20-30)
[2024-06-16 05:52] LABS: Basophils # (auto) 0.4 10 ^3/uL (0-0.2); Eosinophils # (auto) 0.6 10 ^3/uL (0-0.8); Eosinophils % (auto) 6.3 % (0.0-7.0); Hematocrit 28.3 % (36.0-46.0); Hemoglobin 9.3 g/dL (12.2-16.2); Mean Corpuscular Hemoglobin 29.1 pg (28.0-32.0); Mean Corpuscular Volume 88.3 fL (80.0-100.0); Monocytes % (auto) 10.4 % (0.0-12.0); Neutrophils # (auto) 5.4 10 ^3/uL (1.6-8.6); Neutrophils % (auto) 58.3 % (37.0-80.0); Platelet Count (auto) 241 10^3/uL (140-450); Red Blood Cells 3.21 10^6/uL (4.0-5.20); Red Cell Distribution Width 21.8 % (11.8-14.3); White Blood Cell 9.3 10^3/uL (4.4-10.8)
[2024-06-16 05:55] LABS: Blood Urea Nitrogen 8 mg/dL (9-23); Glucose 100 mg/dL (74-106)
[2024-06-16] MEDS: POTASSIUM EFFERVESENT TAB 25 MEQ GT ONE (15:46)
[2024-06-17] VITALS (26 sets, daily range): BP systolic 99–142; BP diastolic 45–92; PULSE 86–104; RESP 14–34; TEMP 98.1–99; O2SAT 98–100
[2024-06-17 06:31] LABS: Basophils # (auto) 0.2 10 ^3/uL (0-0.2); Basophils % (auto) 2.9 % (0.0-2.0); Eosinophils # (auto) 0.6 10 ^3/uL (0-0.8); Eosinophils % (auto) 7.1 % (0.0-7.0); Hematocrit 29.9 % (36.0-46.0); Hemoglobin 10.3 g/dL (12.2-16.2); Lymphocytes # (auto) 1.9 10 ^3/uL (0.4-5.4); Lymphocytes % (auto) 22.5 % (10.0-50.0); Mean Corpuscular Hemoglobin 30.7 pg (28.0-32.0); Mean Corpuscular Hgb Conc. 34.6 g/dL (32.0-36.0); Mean Corpuscular Volume 88.7 fL (80.0-100.0); Monocytes # (auto) 0.9 10 ^3/uL (0-1.3); Neutrophils # (auto) 4.8 10 ^3/uL (1.6-8.6); Neutrophils % (auto) 56.5 % (37.0-80.0); Platelet Count (auto) 160 10^3/uL (140-450); Red Blood Cells 3.37 10^6/uL (4.0-5.20); Red Cell Distribution Width 21.7 % (11.8-14.3); White Blood Cell 8.4 10^3/uL (4.4-10.8)
[2024-06-17 06:39] LABS: Alanine Aminotransferase 16 U/L (7-40); Alkaline Phosphatase 203 U/L (46-116); Anion Gap 8 (5-15); Blood Urea Nitrogen 8 mg/dL (9-23); Calcium 9.5 mg/dL (8.7-10.4); Carbon Dioxide 24 mmol/L (20-30); Chloride 103 mmol/L (98-107); Glucose 117 mg/dL (74-106); Magnesium 1.4 mg/dL (1.6-2.6); Potassium 3.5 mmol/L (3.5-5.1); Sodium 135 mmol/L (136-145)
[2024-06-17 06:40] LABS: Albumin 3.3 g/dL (3.2-4.8); Aspartate Aminotransferase 20 U/L (13-40)
[2024-06-17 06:41] LABS: Bilirubin, Total 0.5 mg/dL (0.2-1.0); Total Protein 5.8 g/dL (5.7-8.2)
[2024-06-17 07:11] LABS: BUN/Creatinine Ratio 18.6 (10.0-20.0)
[2024-06-17] MEDS: MAGNESIUM SULFATE 1GM/100ML 100 ML IV SCH (10:35)
[2024-06-17] MEDS: POTASSIUM EFFERVESENT TAB 25 MEQ PO ONE (10:36)
[2024-06-18] VITALS (24 sets, daily range): BP systolic 103–157; BP diastolic 52–94; PULSE 83–103; RESP 14–26; TEMP 98–99.4; O2SAT 98–100
[2024-06-18 05:36] LABS: Basophils # (auto) 0.3 10 ^3/uL (0-0.2); Basophils % (auto) 3.4 % (0.0-2.0); Eosinophils # (auto) 0.5 10 ^3/uL (0-0.8); Eosinophils % (auto) 6.7 % (0.0-7.0); Hematocrit 27.6 % (36.0-46.0); Hemoglobin 9.2 g/dL (12.2-16.2); Lymphocytes # (auto) 1.9 10 ^3/uL (0.4-5.4); Lymphocytes % (auto) 23.8 % (10.0-50.0); Mean Corpuscular Hemoglobin 29.2 pg (28.0-32.0); Mean Corpuscular Hgb Conc. 33.2 g/dL (32.0-36.0); Mean Corpuscular Volume 87.9 fL (80.0-100.0); Monocytes # (auto) 0.8 10 ^3/uL (0-1.3); Monocytes % (auto) 9.9 % (0.0-12.0); Neutrophils # (auto) 4.5 10 ^3/uL (1.6-8.6); Neutrophils % (auto) 56.2 % (37.0-80.0); Nucleated Red Blood Cells % 0.1 %; Platelet Count (auto) 108 10^3/uL (140-450); Red Blood Cells 3.14 10^6/uL (4.0-5.20); White Blood Cell 8.1 10^3/uL (4.4-10.8)
[2024-06-18 05:39] LABS: Alanine Aminotransferase 13 U/L (7-40); Albumin 3.1 g/dL (3.2-4.8); Alkaline Phosphatase 173 U/L (46-116); Anion Gap 6 (5-15); Aspartate Aminotransferase 13 U/L (13-40); BUN/Creatinine Ratio 15.4 (10.0-20.0); Bilirubin, Total 0.4 mg/dL (0.2-1.0); Blood Urea Nitrogen 6 mg/dL (9-23); Calcium 8.8 mg/dL (8.7-10.4); Carbon Dioxide 26 mmol/L (20-30); Chloride 104 mmol/L (98-107); Glucose 131 mg/dL (74-106); Magnesium 1.6 mg/dL (1.6-2.6); Potassium 3.5 mmol/L (3.5-5.1); Sodium 136 mmol/L (136-145); Total Protein 5.5 g/dL (5.7-8.2)
[2024-06-18 05:44] LABS: Red Cell Distribution Width 21.5 % (11.8-14.3)
[2024-06-18 06:32] LABS: Anisocytosis Slight; Platelet Estimate Decreased
[2024-06-18] MEDS: MAGNESIUM SULFATE 1GM/100ML 100 ML IV SCH (11:56)
[2024-06-18] MEDS: POTASSIUM CHL 20MEQ/100ML 100 ML IV SCH (11:56)
[2024-06-19] VITALS (25 sets, daily range): BP systolic 108–155; BP diastolic 48–78; PULSE 78–97; RESP 13–27; TEMP 97.8–99.4; O2SAT 90–100
[2024-06-19 05:10] LABS: Basophils # (auto) 0.4 10 ^3/uL (0-0.2); Basophils % (auto) 4.4 % (0.0-2.0); Eosinophils # (auto) 0.6 10 ^3/uL (0-0.8); Eosinophils % (auto) 7.5 % (0.0-7.0); Hematocrit 27.5 % (36.0-46.0); Lymphocytes # (auto) 2.3 10 ^3/uL (0.4-5.4); Lymphocytes % (auto) 27.2 % (10.0-50.0); Mean Corpuscular Hemoglobin 28.9 pg (28.0-32.0); Mean Corpuscular Hgb Conc. 32.6 g/dL (32.0-36.0); Mean Corpuscular Volume 88.7 fL (80.0-100.0); Monocytes # (auto) 0.9 10 ^3/uL (0-1.3); Monocytes % (auto) 10.1 % (0.0-12.0); Neutrophils # (auto) 4.4 10 ^3/uL (1.6-8.6); Neutrophils % (auto) 50.8 % (37.0-80.0); Nucleated Red Blood Cells % 0.1 %; Platelet Count (auto) 74 10^3/uL (140-450); White Blood Cell 8.6 10^3/uL (4.4-10.8)
[2024-06-19 05:35] LABS: Red Cell Distribution Width 20.7 % (11.8-14.3)
[2024-06-19 05:43] LABS: Alanine Aminotransferase 11 U/L (7-40); Alkaline Phosphatase 160 U/L (46-116); Anion Gap 6 (5-15); Calcium 9.3 mg/dL (8.7-10.4); Carbon Dioxide 26 mmol/L (20-30); Chloride 103 mmol/L (98-107); Glucose 113 mg/dL (74-106); Magnesium 1.8 mg/dL (1.6-2.6); Potassium 3.9 mmol/L (3.5-5.1); Sodium 135 mmol/L (136-145)
[2024-06-19 05:44] LABS: Albumin 3.2 g/dL (3.2-4.8); Aspartate Aminotransferase 12 U/L (13-40)
[2024-06-19 05:45] LABS: Bilirubin, Total 0.5 mg/dL (0.2-1.0); Total Protein 5.5 g/dL (5.7-8.2)
[2024-06-19 05:47] LABS: BUN/Creatinine Ratio 12.2 (10.0-20.0); Blood Urea Nitrogen < 5 mg/dL (9-23)
[2024-06-19 07:31] LABS: Anisocytosis Slight; Platelet Estimate Decreased; Stomatocytes Few
[2024-06-20] VITALS (25 sets, daily range): BP systolic 101–149; BP diastolic 47–83; PULSE 88–102; RESP 14–25; TEMP 97.5–99.4; O2SAT 93–100
[2024-06-20 05:48] LABS: Basophils # (auto) 0.2 10 ^3/uL (0-0.2); Eosinophils # (auto) 0.6 10 ^3/uL (0-0.8)
[2024-06-20 05:51] LABS: Basophils % (auto) 3.1 % (0.0-2.0); Eosinophils % (auto) 9.1 % (0.0-7.0); Hematocrit 27.6 % (36.0-46.0); Hemoglobin 9.2 g/dL (12.2-16.2); Lymphocytes % (auto) 29.9 % (10.0-50.0); Mean Corpuscular Hemoglobin 29.4 pg (28.0-32.0); Mean Corpuscular Hgb Conc. 33.2 g/dL (32.0-36.0); Mean Corpuscular Volume 88.6 fL (80.0-100.0); Monocytes # (auto) 0.6 10 ^3/uL (0-1.3); Monocytes % (auto) 9.6 % (0.0-12.0); Neutrophils # (auto) 3.3 10 ^3/uL (1.6-8.6); Neutrophils % (auto) 48.3 % (37.0-80.0); Nucleated Red Blood Cells % 0.1 %; Platelet Count (auto) 51 10^3/uL (140-450); Red Blood Cells 3.12 10^6/uL (4.0-5.20); White Blood Cell 6.8 10^3/uL (4.4-10.8)
[2024-06-20 05:52] LABS: Red Cell Distribution Width 21.4 % (11.8-14.3)
[2024-06-20 07:00] LABS: Alanine Aminotransferase 14 U/L (7-40); Alkaline Phosphatase 146 U/L (46-116); Anion Gap 9 (5-15); Aspartate Aminotransferase 20 U/L (13-40); Bilirubin, Total 0.4 mg/dL (0.2-1.0); Calcium 8.7 mg/dL (8.7-10.4); Carbon Dioxide 26 mmol/L (20-30); Chloride 105 mmol/L (98-107); Glucose 92 mg/dL (74-106); Potassium 3.5 mmol/L (3.5-5.1); Sodium 140 mmol/L (136-145)
[2024-06-20 07:05] LABS: BUN/Creatinine Ratio 16.1 (10.0-20.0); Blood Urea Nitrogen < 5 mg/dL (9-23)
[2024-06-21] VITALS (27 sets, daily range): BP systolic 108–140; BP diastolic 49–90; PULSE 91–111; RESP 13–31; TEMP 97.9–100.6; O2SAT 86–100
[2024-06-21 05:11] LABS: Lymphocytes # (auto) 2.6 10 ^3/uL (0.4-5.4)
[2024-06-21 05:17] LABS: Basophils # (auto) 0.5 10 ^3/uL (0-0.2); Basophils % (auto) 4.1 % (0.0-2.0); Eosinophils # (auto) 0.5 10 ^3/uL (0-0.8); Eosinophils % (auto) 4.8 % (0.0-7.0); Hematocrit 28.9 % (36.0-46.0); Hemoglobin 9.6 g/dL (12.2-16.2); Lymphocytes % (auto) 23.4 % (10.0-50.0); Mean Corpuscular Hemoglobin 29.6 pg (28.0-32.0); Mean Corpuscular Hgb Conc. 33.3 g/dL (32.0-36.0); Mean Corpuscular Volume 88.9 fL (80.0-100.0); Monocytes # (auto) 0.8 10 ^3/uL (0-1.3); Monocytes % (auto) 7.4 % (0.0-12.0); Neutrophils # (auto) 6.8 10 ^3/uL (1.6-8.6); Neutrophils % (auto) 60.3 % (37.0-80.0); Platelet Count (auto) 43 10^3/uL (140-450); Red Blood Cells 3.25 10^6/uL (4.0-5.20); White Blood Cell 11.3 10^3/uL (4.4-10.8)
[2024-06-21 05:23] LABS: Red Cell Distribution Width 20.9 % (11.8-14.3)
[2024-06-21 07:51] LABS: Platelet Estimate Decreased
[2024-06-22] VITALS (22 sets, daily range): BP systolic 94–137; BP diastolic 40–88; PULSE 91–105; RESP 11–27; TEMP 98.2–99.1; O2SAT 94–99
[2024-06-22 00:21] LABS: Urine Bacteria MANY /hpf (None Seen); Urine Blood 3+ /uL (Negative); Urine Clarity Turbid (Clear); Urine Color Yellow (Yellow); Urine Mucus FEW (None Seen); Urine Protein, UAD 1+ (Negative); Urine Specific Gravity 1.027 (1.001-1.035); Urine Urobilinogen Normal (Negative); Urine WBC 30 /hpf (0 - 5); Urine pH 5.5 (5.0-9.0)
[2024-06-22 05:21] LABS: Basophils # (auto) 0.3 10 ^3/uL (0-0.2); Lymphocytes # (auto) 2.3 10 ^3/uL (0.4-5.4); Monocytes # (auto) 0.8 10 ^3/uL (0-1.3); Neutrophils # (auto) 5.4 10 ^3/uL (1.6-8.6); Platelet Count (auto) 28 10^3/uL (140-450); White Blood Cell 9.4 10^3/uL (4.4-10.8)
[2024-06-22 05:26] LABS: Basophils % (auto) 3.3 % (0.0-2.0); Eosinophils # (auto) 0.6 10 ^3/uL (0-0.8); Eosinophils % (auto) 6.8 % (0.0-7.0); Hemoglobin 9.6 g/dL (12.2-16.2); Mean Corpuscular Hgb Conc. 33.1 g/dL (32.0-36.0); Mean Corpuscular Volume 90.5 fL (80.0-100.0); Monocytes % (auto) 8.9 % (0.0-12.0); Red Blood Cells 3.21 10^6/uL (4.0-5.20)
[2024-06-22 05:29] LABS: Red Cell Distribution Width 20.6 % (11.8-14.3)
[2024-06-22 05:34] LABS: Albumin 3.1 g/dL (3.2-4.8); Alkaline Phosphatase 122 U/L (46-116); Anion Gap 7 (5-15); Aspartate Aminotransferase 10 U/L (13-40); BUN/Creatinine Ratio 23.5 (10.0-20.0); Blood Urea Nitrogen 8 mg/dL (9-23); Calcium 9.1 mg/dL (8.7-10.4); Carbon Dioxide 27 mmol/L (20-30); Chloride 102 mmol/L (98-107); Glucose 116 mg/dL (74-106); Potassium 3.5 mmol/L (3.5-5.1); Sodium 136 mmol/L (136-145)
[2024-06-22 05:35] LABS: Bilirubin, Total 0.5 mg/dL (0.2-1.0); Total Protein 5.6 g/dL (5.7-8.2)
[2024-06-22 05:57] LABS: Alanine Aminotransferase < 9 U/L (7-40)
[2024-06-22 06:55] LABS: Anisocytosis Slight; Platelet Estimate Decreased
[2024-06-23] VITALS (25 sets, daily range): BP systolic 120–162; BP diastolic 46–75; PULSE 92–110; RESP 13–27; TEMP 98.2–98.4; O2SAT 89–100
[2024-06-23 04:50] LABS: Lymphocytes # (auto) 2.7 10 ^3/uL (0.4-5.4); Monocytes # (auto) 0.8 10 ^3/uL (0-1.3); Neutrophils # (auto) 5.5 10 ^3/uL (1.6-8.6); Platelet Count (auto) 22 10^3/uL (140-450)
[2024-06-23 04:55] LABS: Basophils # (auto) 0.3 10 ^3/uL (0-0.2); Basophils % (auto) 2.7 % (0.0-2.0); Eosinophils # (auto) 0.7 10 ^3/uL (0-0.8); Eosinophils % (auto) 6.6 % (0.0-7.0); Hematocrit 27.1 % (36.0-46.0); Lymphocytes % (auto) 27.6 % (10.0-50.0); Mean Corpuscular Hemoglobin 29.5 pg (28.0-32.0); Mean Corpuscular Hgb Conc. 33.2 g/dL (32.0-36.0); Mean Corpuscular Volume 88.9 fL (80.0-100.0); Monocytes % (auto) 8.1 % (0.0-12.0); Red Blood Cells 3.05 10^6/uL (4.0-5.20)
[2024-06-23 08:18] LABS: Albumin 3.3 g/dL (3.2-4.8); Alkaline Phosphatase 119 U/L (46-116); Anion Gap 7 (5-15); Aspartate Aminotransferase 16 U/L (13-40); BUN/Creatinine Ratio 15.6 (10.0-20.0); Blood Urea Nitrogen 5 mg/dL (9-23); Calcium 9.1 mg/dL (8.7-10.4); Carbon Dioxide 27 mmol/L (20-30); Chloride 102 mmol/L (98-107); Glucose 88 mg/dL (74-106); Potassium 3.6 mmol/L (3.5-5.1); Sodium 136 mmol/L (136-145)
[2024-06-23 08:19] LABS: Bilirubin, Total 0.5 mg/dL (0.2-1.0); Total Protein 5.4 g/dL (5.7-8.2)
[2024-06-23 08:22] LABS: Alanine Aminotransferase < 9 U/L (7-40)
[2024-06-23] MEDS: POTASSIUM EFFERVESENT TAB 25 MEQ GT ONE (13:55)
[2024-06-23] MEDS: ONDANSETRON HCL 4 MG/2 ML VIAL IV PRN (20:20)
[2024-06-23] MEDS: methylPREDNISolone SOD SUCC 40 MG/ML VL IV SCH (22:07)
[2024-06-24] VITALS (40 sets, daily range): BP systolic 115–153; BP diastolic 46–77; PULSE 100–116; RESP 15–28; TEMP 98.2–100.5; O2SAT 86–98
[2024-06-24 05:28] LABS: Basophils # (auto) 0.1 10 ^3/uL (0-0.2); Eosinophils # (auto) 0 10 ^3/uL (0-0.8); Eosinophils % (auto) 0.1 % (0.0-7.0); Hemoglobin 10.5 g/dL (12.2-16.2); Lymphocytes # (auto) 1.7 10 ^3/uL (0.4-5.4); Monocytes # (auto) 0.2 10 ^3/uL (0-1.3)
[2024-06-24 05:33] LABS: Basophils % (auto) 0.5 % (0.0-2.0); Hematocrit 32.6 % (36.0-46.0); Mean Corpuscular Hemoglobin 28.4 pg (28.0-32.0); Mean Corpuscular Hgb Conc. 32.3 g/dL (32.0-36.0); Mean Corpuscular Volume 87.8 fL (80.0-100.0); Monocytes % (auto) 1.4 % (0.0-12.0); Neutrophils # (auto) 10.1 10 ^3/uL (1.6-8.6); Platelet Count (auto) 24 10^3/uL (140-450); Red Blood Cells 3.71 10^6/uL (4.0-5.20); Red Cell Distribution Width 19.8 % (11.8-14.3)
[2024-06-24 05:47] LABS: Alanine Aminotransferase 11 U/L (7-40); Albumin 3.7 g/dL (3.2-4.8); Alkaline Phosphatase 135 U/L (46-116); Anion Gap 8 (5-15); Aspartate Aminotransferase 13 U/L (13-40); Blood Urea Nitrogen 9 mg/dL (9-23); Calcium 9.8 mg/dL (8.7-10.4); Carbon Dioxide 26 mmol/L (20-30); Chloride 102 mmol/L (98-107); Glucose 119 mg/dL (74-106); Magnesium 1.5 mg/dL (1.6-2.6); Potassium 4.9 mmol/L (3.5-5.1); Sodium 136 mmol/L (136-145)
[2024-06-24 05:48] LABS: Bilirubin, Total 0.5 mg/dL (0.2-1.0); Total Protein 6.3 g/dL (5.7-8.2)
[2024-06-25] VITALS (66 sets, daily range): BP systolic 124–168; BP diastolic 50–84; PULSE 88–110; RESP 13–29; TEMP 97.8–98.5; O2SAT 87–99
[2024-06-25 05:33] LABS: Basophils # (auto) 0 10 ^3/uL (0-0.2); Basophils % (auto) 0.3 % (0.0-2.0); Eosinophils # (auto) 0 10 ^3/uL (0-0.8); Eosinophils % (auto) 0.1 % (0.0-7.0); Hematocrit 31.2 % (36.0-46.0); Hemoglobin 10.3 g/dL (12.2-16.2); Lymphocytes # (auto) 1.4 10 ^3/uL (0.4-5.4); Lymphocytes % (auto) 14.3 % (10.0-50.0); Mean Corpuscular Hemoglobin 29.6 pg (28.0-32.0); Mean Corpuscular Hgb Conc. 32.9 g/dL (32.0-36.0); Monocytes # (auto) 0.5 10 ^3/uL (0-1.3); Monocytes % (auto) 4.5 % (0.0-12.0); Neutrophils % (auto) 80.8 % (37.0-80.0); Platelet Count (auto) 74 10^3/uL (140-450); Red Blood Cells 3.47 10^6/uL (4.0-5.20); Red Cell Distribution Width 19.7 % (11.8-14.3); White Blood Cell 9.9 10^3/uL (4.4-10.8)
[2024-06-25 05:49] LABS: Alkaline Phosphatase 125 U/L (46-116); Anion Gap 10 (5-15); BUN/Creatinine Ratio 40.9 (10.0-20.0); Blood Urea Nitrogen 18 mg/dL (9-23); Calcium 10.2 mg/dL (8.7-10.4); Carbon Dioxide 26 mmol/L (20-30); Chloride 102 mmol/L (98-107); Glucose 178 mg/dL (74-106); Potassium 4.4 mmol/L (3.5-5.1); Sodium 138 mmol/L (136-145)
[2024-06-25 05:50] LABS: Alanine Aminotransferase 9 U/L (7-40); Aspartate Aminotransferase < 8 U/L (13-40); Bilirubin, Total 0.5 mg/dL (0.2-1.0); Total Protein 6.6 g/dL (5.7-8.2)
[2024-06-25] MEDS: MAGNESIUM SULFATE 1GM/100ML 100 ML IV ONE (09:17)
[2024-06-26] VITALS (44 sets, daily range): BP systolic 129–164; BP diastolic 48–107; PULSE 74–108; RESP 16–27; TEMP 97.8–98.6; O2SAT 88–100
[2024-06-26 05:22] LABS: Basophils # (auto) 0 10 ^3/uL (0-0.2); Basophils % (auto) 0.1 % (0.0-2.0); Eosinophils # (auto) 0 10 ^3/uL (0-0.8); Hemoglobin 9.7 g/dL (12.2-16.2); Lymphocytes # (auto) 0.9 10 ^3/uL (0.4-5.4); Mean Corpuscular Hemoglobin 29.5 pg (28.0-32.0); Mean Corpuscular Hgb Conc. 33.3 g/dL (32.0-36.0); Mean Corpuscular Volume 88.7 fL (80.0-100.0); Monocytes # (auto) 0.6 10 ^3/uL (0-1.3); Monocytes % (auto) 6.7 % (0.0-12.0); Neutrophils # (auto) 7.2 10 ^3/uL (1.6-8.6); Neutrophils % (auto) 83.2 % (37.0-80.0); Platelet Count (auto) 124 10^3/uL (140-450); Red Blood Cells 3.27 10^6/uL (4.0-5.20); Red Cell Distribution Width 19.9 % (11.8-14.3); White Blood Cell 8.6 10^3/uL (4.4-10.8)
[2024-06-26 05:37] LABS: Alanine Aminotransferase 10 U/L (7-40); Albumin 3.7 g/dL (3.2-4.8); Alkaline Phosphatase 105 U/L (46-116); Anion Gap 8 (5-15); Aspartate Aminotransferase < 8 U/L (13-40); BUN/Creatinine Ratio 43.6 (10.0-20.0); Bilirubin, Total 0.5 mg/dL (0.2-1.0); Blood Urea Nitrogen 17 mg/dL (9-23); Calcium 9.4 mg/dL (8.7-10.4); Carbon Dioxide 30 mmol/L (20-30); Chloride 102 mmol/L (98-107); Glucose 170 mg/dL (74-106); Potassium 4.4 mmol/L (3.5-5.1); Sodium 140 mmol/L (136-145); Total Protein 6.2 g/dL (5.7-8.2)
[2024-06-26] MEDS: methylPREDNISolone SOD SUCC 40 MG/ML VL IV SCH (09:42)
[2024-06-26] MEDS: levoFLOXacin 500 MG TAB PO ONE (18:33)
[2024-06-26] MEDS: PHENAZOPYRIDINE HCL 100 MG TAB PO ONE (18:33)
[2024-06-27] VITALS (24 sets, daily range): BP systolic 128–158; BP diastolic 63–90; PULSE 75–137; RESP 15–22; TEMP 97.5–98.6; O2SAT 90–98
[2024-06-27 05:16] LABS: Hematocrit 31.2 % (36.0-46.0); Hemoglobin 10.3 g/dL (12.2-16.2); Mean Corpuscular Hemoglobin 29.4 pg (28.0-32.0); Mean Corpuscular Hgb Conc. 32.9 g/dL (32.0-36.0); Mean Corpuscular Volume 89.4 fL (80.0-100.0); Platelet Count (auto) 181 10^3/uL (140-450); Red Blood Cells 3.49 10^6/uL (4.0-5.20); Red Cell Distribution Width 19.1 % (11.8-14.3); White Blood Cell 8.1 10^3/uL (4.4-10.8)
[2024-06-27 05:40] LABS: Basophils % (manual) 0 (0.0-2.0); Blast Cells 0; Eosinophils % (manual) 0 (0-7); Metamyelocytes % 0; Myelocytes % 0; Promyelocytes % 0; Reactive Lymphocytes 0
[2024-06-27] MEDS: PHENAZOPYRIDINE HCL 100 MG TAB PO SCH (07:40)
[2024-06-27] MEDS: levoFLOXacin 500 MG TAB PO SCH (07:42)
[2024-06-27 08:57] LABS: Band Neutrophils % (manual) 3; Lymphocytes % (manual) 22 (10.0-50.0); Monocytes % (manual) 9 (0-12); Platelet Estimate Adequate
[2024-06-27] MEDS: LEVOTHYROXINE SODIUM 25 MCG TAB PO ONE (11:57)
[2024-06-27] MEDS: AMIODARONE BOLUS KIT 100 ML IV ONE (19:54)
[2024-06-27] MEDS: AMIODARONE 450mg/250ml AE 250 ML IV ONE (20:04)
[2024-06-27] MEDS: AMIODARONE 450mg/250ml AE 250 ML IV SCH (20:05)
[2024-06-28] VITALS (30 sets, daily range): BP systolic 109–151; BP diastolic 52–80; PULSE 75–106; RESP 11–26; TEMP 97.4–98.5; O2SAT 87–97
[2024-06-28] MEDS: HYDROcodone-ACET 5/325MG TAB PO PRN (01:10)
[2024-06-28] MEDS: AMIODARONE 450mg/250ml AE 250 ML IV SCH (01:45)
[2024-06-28] MEDS: LEVOTHYROXINE SODIUM 25 MCG TAB PO SCH (05:59)
[2024-06-28 06:06] LABS: Hematocrit 32.7 % (36.0-46.0); Hemoglobin 10.7 g/dL (12.2-16.2); Mean Corpuscular Hemoglobin 29.4 pg (28.0-32.0); Mean Corpuscular Hgb Conc. 32.6 g/dL (32.0-36.0); Mean Corpuscular Volume 90.2 fL (80.0-100.0); Platelet Count (auto) 239 10^3/uL (140-450); Red Blood Cells 3.63 10^6/uL (4.0-5.20); Red Cell Distribution Width 19.4 % (11.8-14.3); White Blood Cell 10.6 10^3/uL (4.4-10.8)
[2024-06-28 06:22] LABS: Basophils % (manual) 0 (0.0-2.0); Blast Cells 0; Eosinophils % (manual) 0 (0-7); Metamyelocytes % 0; Promyelocytes % 0; Reactive Lymphocytes 0
[2024-06-28 06:56] LABS: Anisocytosis Slight; Band Neutrophils % (manual) 6; Lymphocytes % (manual) 18 (10.0-50.0); Monocytes % (manual) 12 (0-12); Myelocytes % 1; Platelet Estimate Adequate
[2024-06-28] MEDS: PANTOPRAZOLE 40 MG TAB PO ONE (11:43)
[2024-06-28] MEDS: METOPROLOL SUCCINATE XL 50 MG TAB PO ONE (11:44)
[2024-06-28] MEDS: CALCIUM CARB 500 MG CHEW TAB PO PRN (14:10)
[2024-06-29] VITALS (74 sets, daily range): BP systolic 67–137; BP diastolic 22–57; PULSE 92–141; RESP 14–40; TEMP 97.9–100; O2SAT 89–100
[2024-06-29] MEDS: SODIUM CHLORIDE 0.9% 500 ML IV ONE (00:49)
[2024-06-29] MEDS: SODIUM CHLORIDE 0.9% 1,000 ML IV SCH ×2 (04:10→09:45)
[2024-06-29] MEDS: PANTOPRAZOLE 40 MG TAB PO SCH (05:22)
[2024-06-29 05:54] LABS: Basophils # (auto) 0.1 10 ^3/uL (0-0.2); Basophils % (auto) 0.3 % (0.0-2.0); Eosinophils # (auto) 0 10 ^3/uL (0-0.8); Eosinophils % (auto) 0.1 % (0.0-7.0); Hematocrit 34.8 % (36.0-46.0); Hemoglobin 11.5 g/dL (12.2-16.2); Lymphocytes # (auto) 2.3 10 ^3/uL (0.4-5.4); Lymphocytes % (auto) 9.7 % (10.0-50.0); Mean Corpuscular Hemoglobin 29.8 pg (28.0-32.0); Mean Corpuscular Hgb Conc. 33.1 g/dL (32.0-36.0); Monocytes # (auto) 1.3 10 ^3/uL (0-1.3); Monocytes % (auto) 5.6 % (0.0-12.0); Neutrophils # (auto) 20.1 10 ^3/uL (1.6-8.6); Neutrophils % (auto) 84.3 % (37.0-80.0); Nucleated Red Blood Cells % 0.1 %; Platelet Count (auto) 235 10^3/uL (140-450); Red Blood Cells 3.87 10^6/uL (4.0-5.20); Red Cell Distribution Width 19.9 % (11.8-14.3); White Blood Cell 23.9 10^3/uL (4.4-10.8)
[2024-06-29 06:09] LABS: Anion Gap 6 (5-15); Calcium 9.3 mg/dL (8.7-10.4); Carbon Dioxide 29 mmol/L (20-30); Chloride 104 mmol/L (98-107); Potassium 3.2 mmol/L (3.5-5.1); Sodium 139 mmol/L (136-145)
[2024-06-29 06:15] LABS: Blood Urea Nitrogen 31 mg/dL (9-23); Glucose 134 mg/dL (74-106)
[2024-06-29] MEDS: METOPROLOL SUCCINATE XL 50 MG TAB PO SCH (08:40)
[2024-06-29] MEDS ORDERED: VANCOMYCIN PER PHARMACY 0 MG IV SCH (08:45)
[2024-06-29] MEDS: POTASSIUM CHL 20MEQ/100ML 100 ML IV ONE (08:46)
[2024-06-29] MEDS: SODIUM CHLORIDE 0.9% 250 ML IV ONE ×4 (09:02→12:10)
[2024-06-29] MEDS: MORPHINE SULFATE INJ 2 MG/ml SYRG IV ONE (09:07)
[2024-06-29 09:47] LABS: Base Excess -2.1 mmol/L (-2.0-2.0)
[2024-06-29] MEDS: VANCOMYCIN 1GM/200ML 200 ML IV ONE (09:59)
[2024-06-29] MEDS: PIPERACILLIN-TAZOB 3.375GM 100 ML IV ONE (10:38)
[2024-06-29] MEDS: PANTOPRAZOLE 40 MG/10 ML VIAL INJ IV ONE (10:38)
[2024-06-29] MEDS: POTASSIUM CHLORIDE 40 MEQ, LIDOCAINE 1% (LOCAL ANESTH.) 4 ML in SODIUM CHL 0.9% 250 ML IV ONE (11:05)
[2024-06-29] MEDS: MORPHINE SULFATE INJ 2 MG/ml SYRG IV PRN (13:31)
[2024-06-29] MEDS: PIPERACILLIN-TAZOB 3.375GM 100 ML IV SCH (13:56)
[2024-06-29] MEDS: NOREPINEPHRINE 8 MG/250ML KIT 250 ML IV SCH (13:56)
[2024-06-30] VITALS (94 sets, daily range): BP systolic 84–138; BP diastolic 26–62; PULSE 87–117; RESP 15–32; TEMP 97.9–99.2; O2SAT 88–100
[2024-06-30 04:53] LABS: Basophils # (auto) 0.1 10 ^3/uL (0-0.2); Basophils % (auto) 0.4 % (0.0-2.0); Eosinophils # (auto) 0.2 10 ^3/uL (0-0.8); Eosinophils % (auto) 0.6 % (0.0-7.0); Hematocrit 36.9 % (36.0-46.0); Hemoglobin 11.7 g/dL (12.2-16.2); Lymphocytes # (auto) 2.2 10 ^3/uL (0.4-5.4); Lymphocytes % (auto) 7.4 % (10.0-50.0); Mean Corpuscular Hgb Conc. 31.7 g/dL (32.0-36.0); Mean Corpuscular Volume 91.4 fL (80.0-100.0); Monocytes # (auto) 1.5 10 ^3/uL (0-1.3); Neutrophils % (auto) 86.6 % (37.0-80.0); Platelet Count (auto) 252 10^3/uL (140-450); Red Blood Cells 4.04 10^6/uL (4.0-5.20); Red Cell Distribution Width 19.9 % (11.8-14.3)
[2024-06-30] MEDS: VANCOMYCIN 1GM/200ML 200 ML IV SCH (05:07)
[2024-06-30] MEDS ORDERED: TPN PER PHARMACY 0 ML IV SCH (09:30)
[2024-06-30] MEDS: GASTROGRAFIN 120 ML SOL ONE (09:42)
[2024-06-30] MEDS: PANTOPRAZOLE 40 MG/10 ML VIAL INJ IV SCH (10:10)
[2024-06-30] MEDS: POTASSIUM CHL 20MEQ/100ML 100 ML IV ONE (10:11)
[2024-06-30 13:28] LABS: Alanine Aminotransferase 25 U/L (7-40); Albumin 3.1 g/dL (3.2-4.8); Alkaline Phosphatase 159 U/L (46-116); Anion Gap 7 (5-15); Aspartate Aminotransferase 23 U/L (13-40); BUN/Creatinine Ratio 34.9 (10.0-20.0); Blood Urea Nitrogen 38 mg/dL (9-23); Carbon Dioxide 24 mmol/L (20-30); Chloride 113 mmol/L (98-107); Glucose 170 mg/dL (74-106); Magnesium 1.7 mg/dL (1.6-2.6); Potassium 4.3 mmol/L (3.5-5.1); Sodium 144 mmol/L (136-145); Triglycerides 160 mg/dL (< 150)
[2024-06-30 13:29] LABS: Bilirubin, Total 0.9 mg/dL (0.2-1.0); Phosphorus 3.4 mg/dL (2.4-5.1); Total Protein 5.4 g/dL (5.7-8.2)
[2024-06-30] MEDS: HYDROmorphone HCL 2 MG/ML VL/or syr IV PRN (13:42)
[2024-06-30] MEDS: AMINO ACID INFUSION IN D10W 1,000 ML IV SCH (20:40)
[2024-07-01] VITALS (95 sets, daily range): BP systolic 95–194; BP diastolic 27–122; PULSE 81–110; RESP 13–26; TEMP 97.8–98.6; O2SAT 95–100
[2024-07-01] MEDS ORDERED: DEXTROSE (50%) 50ML SYRG IV SCH
[2024-07-01] MEDS: ACCU-CHEK COMFORT CURVE STRIP VI SCH (00:20)
[2024-07-01] MEDS: InsuLIN REG 1unit/0.01ml Soln (100units/ml) SC SCH (00:21)
[2024-07-01 04:30] LABS: Basophils # (auto) 0 10 ^3/uL (0-0.2); Basophils % (auto) 0.2 % (0.0-2.0); Eosinophils # (auto) 0.1 10 ^3/uL (0-0.8); Eosinophils % (auto) 0.4 % (0.0-7.0); Hematocrit 33.5 % (36.0-46.0); Hemoglobin 10.6 g/dL (12.2-16.2); Lymphocytes # (auto) 1.4 10 ^3/uL (0.4-5.4); Lymphocytes % (auto) 5.6 % (10.0-50.0); Mean Corpuscular Hgb Conc. 31.7 g/dL (32.0-36.0); Mean Corpuscular Volume 91.5 fL (80.0-100.0); Monocytes # (auto) 1.4 10 ^3/uL (0-1.3); Monocytes % (auto) 5.6 % (0.0-12.0); Neutrophils # (auto) 21.5 10 ^3/uL (1.6-8.6); Neutrophils % (auto) 88.2 % (37.0-80.0); Platelet Count (auto) 257 10^3/uL (140-450); Red Blood Cells 3.66 10^6/uL (4.0-5.20); Red Cell Distribution Width 20.4 % (11.8-14.3); White Blood Cell 24.3 10^3/uL (4.4-10.8)
[2024-07-01 04:43] LABS: Alanine Aminotransferase 16 U/L (7-40); Alkaline Phosphatase 159 U/L (46-116); Calcium 9.2 mg/dL (8.7-10.4); Carbon Dioxide 27 mmol/L (20-30); Chloride 115 mmol/L (98-107)
[2024-07-01 04:44] LABS: Anion Gap 4 (5-15); Aspartate Aminotransferase < 8 U/L (13-40); BUN/Creatinine Ratio 42.4 (10.0-20.0); Bilirubin, Total 0.7 mg/dL (0.2-1.0); Blood Urea Nitrogen 42 mg/dL (9-23); Glucose 189 mg/dL (74-106); Magnesium 1.9 mg/dL (1.6-2.6); Phosphorus 2.5 mg/dL (2.4-5.1); Potassium 3.2 mmol/L (3.5-5.1); Sodium 146 mmol/L (136-145); Total Protein 5.3 g/dL (5.7-8.2)
[2024-07-01 04:56] LABS: INR 1.11 (0.9-1.15); Partial Thromboplastin Time 28.2 SEC (24.5-34.5); Prothrombin Time 11.7 sec (9.3-11.8)
[2024-07-01] MEDS: FLUCONAZOLE 200MG/100ML 100 ML IV SCH (07:50)
[2024-07-01] MEDS: HYDROmorphone HCL 2 MG/ML VL/or syr IV PRN (10:40)
[2024-07-01] MEDS: POTASSIUM CHL 20MEQ/100ML 100 ML IV SCH (13:11)
[2024-07-01] MEDS: TPN PER PHARMACY IV NR (20:11)
[2024-07-02] VITALS (87 sets, daily range): BP systolic 111–169; BP diastolic 29–147; PULSE 79–117; RESP 11–30; TEMP 97.8–98.6; O2SAT 94–100
[2024-07-02 04:24] LABS: Alanine Aminotransferase 14 U/L (7-40); Albumin 2.9 g/dL (3.2-4.8); Alkaline Phosphatase 134 U/L (46-116); Anion Gap 8 (5-15); Calcium 8.7 mg/dL (8.7-10.4); Carbon Dioxide 24 mmol/L (20-30); Chloride 116 mmol/L (98-107); Glucose 135 mg/dL (74-106); Magnesium 1.7 mg/dL (1.6-2.6); Potassium 3.5 mmol/L (3.5-5.1); Sodium 148 mmol/L (136-145)
[2024-07-02 04:25] LABS: Aspartate Aminotransferase < 8 U/L (13-40); Bilirubin, Total 0.5 mg/dL (0.2-1.0); Total Protein 5.1 g/dL (5.7-8.2)
[2024-07-02 04:38] LABS: Blood Urea Nitrogen 26 mg/dL (9-23)
[2024-07-02 05:36] LABS: Basophils # (auto) 0.1 10 ^3/uL (0-0.2); Eosinophils # (auto) 0.1 10 ^3/uL (0-0.8)
[2024-07-02 05:37] LABS: Basophils % (auto) 0.6 % (0.0-2.0); Hematocrit 33.7 % (36.0-46.0); Hemoglobin 10.3 g/dL (12.2-16.2); Lymphocytes # (auto) 1.3 10 ^3/uL (0.4-5.4); Lymphocytes % (auto) 9.2 % (10.0-50.0); Mean Corpuscular Hemoglobin 28.9 pg (28.0-32.0); Mean Corpuscular Hgb Conc. 30.6 g/dL (32.0-36.0); Mean Corpuscular Volume 94.4 fL (80.0-100.0); Monocytes % (auto) 7.2 % (0.0-12.0); Neutrophils # (auto) 11.6 10 ^3/uL (1.6-8.6); Nucleated Red Blood Cells % 0.1 %; Platelet Count (auto) 217 10^3/uL (140-450); Red Blood Cells 3.58 10^6/uL (4.0-5.20); White Blood Cell 14.1 10^3/uL (4.4-10.8)
[2024-07-02 05:39] LABS: Red Cell Distribution Width 20.8 % (11.8-14.3)
[2024-07-02 08:14] LABS: Anisocytosis Slight; Platelet Estimate Adequate
[2024-07-02] MEDS: MORPHINE SULFATE 4 MG/ML SYR/VIAL IV PRN (08:59)
[2024-07-02] MEDS: POTASSIUM PHOSPHATE 22 MEQ in SODIUM CHL 0.9% 100 ML IV ONE (12:49)
[2024-07-02] MEDS: TPN PER PHARMACY IV NR (20:34)
[2024-07-02] MEDS: VANCOMYCIN 1GM/200ML 200 ML IV SCH (21:00)
[2024-07-03] VITALS (98 sets, daily range): BP systolic 114–177; BP diastolic 27–129; PULSE 78–106; RESP 9–26; TEMP 97.6–99; O2SAT 91–100
[2024-07-03] MEDS: LORazepam 2MG/ML-1ML VIAL IV PRN (00:13)
[2024-07-03 04:25] LABS: Basophils # (auto) 0.1 10 ^3/uL (0-0.2); Basophils % (auto) 0.5 % (0.0-2.0); Eosinophils # (auto) 0.1 10 ^3/uL (0-0.8); Eosinophils % (auto) 1.2 % (0.0-7.0); Hematocrit 31.2 % (36.0-46.0); Hemoglobin 9.8 g/dL (12.2-16.2); Lymphocytes # (auto) 1.3 10 ^3/uL (0.4-5.4); Lymphocytes % (auto) 12.1 % (10.0-50.0); Mean Corpuscular Hemoglobin 29.3 pg (28.0-32.0); Mean Corpuscular Hgb Conc. 31.4 g/dL (32.0-36.0); Mean Corpuscular Volume 93.3 fL (80.0-100.0); Monocytes # (auto) 1.2 10 ^3/uL (0-1.3); Monocytes % (auto) 10.8 % (0.0-12.0); Neutrophils # (auto) 8.2 10 ^3/uL (1.6-8.6); Neutrophils % (auto) 75.4 % (37.0-80.0); Platelet Count (auto) 212 10^3/uL (140-450); Red Blood Cells 3.35 10^6/uL (4.0-5.20); Red Cell Distribution Width 20.6 % (11.8-14.3); White Blood Cell 10.9 10^3/uL (4.4-10.8)
[2024-07-03 04:30] LABS: Partial Thromboplastin Time 26.6 SEC (24.5-34.5); Prothrombin Time 10.6 sec (9.3-11.8)
[2024-07-03 04:34] LABS: Alanine Aminotransferase 11 U/L (7-40); Albumin 2.7 g/dL (3.2-4.8); Alkaline Phosphatase 145 U/L (46-116); Anion Gap 3 (5-15); Aspartate Aminotransferase 9 U/L (13-40); BUN/Creatinine Ratio 40.8 (10.0-20.0); Blood Urea Nitrogen 20 mg/dL (9-23); Calcium 8.5 mg/dL (8.7-10.4); Carbon Dioxide 27 mmol/L (20-30); Chloride 116 mmol/L (98-107); Glucose 105 mg/dL (74-106); Magnesium 1.8 mg/dL (1.6-2.6); Potassium 3.4 mmol/L (3.5-5.1); Sodium 146 mmol/L (136-145)
[2024-07-03 04:35] LABS: Bilirubin, Total 0.4 mg/dL (0.2-1.0); Phosphorus 3.7 mg/dL (2.4-5.1)
[2024-07-03] MEDS: POTASSIUM CHL 20MEQ/100ML 100 ML IV ONE (10:57)
[2024-07-03] MEDS: TPN PER PHARMACY IV NR (19:59)
[2024-07-04] VITALS (83 sets, daily range): BP systolic 107–186; BP diastolic 26–73; PULSE 77–98; RESP 13–24; TEMP 97.9–99.2; O2SAT 91–100
[2024-07-04 04:18] LABS: Basophils # (auto) 0.1 10 ^3/uL (0-0.2); Basophils % (auto) 0.6 % (0.0-2.0); Eosinophils # (auto) 0.2 10 ^3/uL (0-0.8); Eosinophils % (auto) 1.3 % (0.0-7.0); Hematocrit 30.8 % (36.0-46.0); Hemoglobin 9.8 g/dL (12.2-16.2); Lymphocytes # (auto) 1.5 10 ^3/uL (0.4-5.4); Mean Corpuscular Hemoglobin 29.4 pg (28.0-32.0); Mean Corpuscular Volume 91.8 fL (80.0-100.0); Monocytes # (auto) 1.2 10 ^3/uL (0-1.3); Monocytes % (auto) 10.4 % (0.0-12.0); Neutrophils # (auto) 8.8 10 ^3/uL (1.6-8.6); Neutrophils % (auto) 74.7 % (37.0-80.0); Platelet Count (auto) 161 10^3/uL (140-450); Red Blood Cells 3.35 10^6/uL (4.0-5.20); Red Cell Distribution Width 19.8 % (11.8-14.3); White Blood Cell 11.8 10^3/uL (4.4-10.8)
[2024-07-04 04:25] LABS: Albumin 2.8 g/dL (3.2-4.8); Alkaline Phosphatase 171 U/L (46-116); Aspartate Aminotransferase 9 U/L (13-40); BUN/Creatinine Ratio 32.7 (10.0-20.0); Blood Urea Nitrogen 16 mg/dL (9-23); Calcium 8.2 mg/dL (8.7-10.4); Chloride 110 mmol/L (98-107); Glucose 124 mg/dL (74-106); Magnesium 1.9 mg/dL (1.6-2.6); Potassium 3.9 mmol/L (3.5-5.1); Sodium 141 mmol/L (136-145)
[2024-07-04 04:26] LABS: Anion Gap 6 (5-15); Bilirubin, Total 0.5 mg/dL (0.2-1.0); Carbon Dioxide 25 mmol/L (20-30); Phosphorus 3.1 mg/dL (2.4-5.1); Total Protein 5.3 g/dL (5.7-8.2)
[2024-07-04 04:28] LABS: Alanine Aminotransferase < 9 U/L (7-40)
[2024-07-04 04:37] LABS: INR 1.01 (0.9-1.15); Partial Thromboplastin Time 27.6 SEC (24.5-34.5); Prothrombin Time 10.7 sec (9.3-11.8)
[2024-07-04] MEDS ORDERED: fentaNYL CITRATE 100 MCG/2 ML VL ONE (13:14)
[2024-07-04] MEDS ORDERED: MEPERIDINE HCL (25 MG/ML) 1ML VIAL ONE (13:15)
[2024-07-04] MEDS ORDERED: SODIUM CHLORIDE LOCK 10 ML ONE (13:15)
[2024-07-04] MEDS ORDERED: ROCURONIUM 10MG/ML 10ML VIAL IV ONE (13:15)
[2024-07-04] MEDS ORDERED: MIDAZOLAM HCL 2MG/2ML 2ml VIAL (1mg/ml) ONE (13:15)
[2024-07-04] MEDS ORDERED: KETAMINE 50mg/ML 1ml syringe ONE (13:15)
[2024-07-04] MEDS ORDERED: PROPOFOL 10 MG/ML 20 ML IV ONE (13:15)
[2024-07-04] MEDS ORDERED: MORPHINE SULFATE INJ 2 MG/ml SYRG IV PRN (14:30)
[2024-07-04] MEDS: METOCLOPRAMIDE HCL 5MG/ml INJ 2ml VIAL IV ONE (14:30)
[2024-07-04] MEDS ORDERED: fentaNYL CITRATE 100 MCG/2 ML VL IV PRN (14:30)
[2024-07-04] MEDS ORDERED: HYDROmorphone HCL 2 MG/ML VL/or syr IV PRN ×2 (14:30)
[2024-07-04] MEDS: MAGNESIUM SULFATE 1GM/100ML 100 ML IV ONE (18:37)
[2024-07-04] MEDS: TPN PER PHARMACY IV NR (20:41)
[2024-07-04] MEDS: VANCOMYCIN 1GM/200ML 200 ML IV SCH (23:33)
[2024-07-05] VITALS (60 sets, daily range): BP systolic 11–151; BP diastolic 32–72; PULSE 80–94; RESP 15–26; TEMP 98.2–99.3; O2SAT 96–100
[2024-07-05 04:45] LABS: Alanine Aminotransferase 21 U/L (7-40); Albumin 2.5 g/dL (3.2-4.8); Alkaline Phosphatase 225 U/L (46-116); Anion Gap 4 (5-15); Aspartate Aminotransferase 29 U/L (13-40); BUN/Creatinine Ratio 34.7 (10.0-20.0); Bilirubin, Total 0.5 mg/dL (0.2-1.0); Blood Urea Nitrogen 17 mg/dL (9-23); Calcium 7.8 mg/dL (8.7-10.4); Carbon Dioxide 26 mmol/L (20-30); Chloride 105 mmol/L (98-107); Glucose 140 mg/dL (74-106); Magnesium 1.9 mg/dL (1.6-2.6); Phosphorus 2.3 mg/dL (2.4-5.1); Potassium 3.8 mmol/L (3.5-5.1); Total Protein 4.8 g/dL (5.7-8.2)
[2024-07-05 04:46] LABS: Sodium 135 mmol/L (136-145)
[2024-07-05 06:00] LABS: Basophils # (auto) 0.1 10 ^3/uL (0-0.2); Eosinophils # (auto) 0.1 10 ^3/uL (0-0.8); Hemoglobin 8.1 g/dL (12.2-16.2); Lymphocytes # (auto) 1.5 10 ^3/uL (0.4-5.4); Monocytes # (auto) 1.1 10 ^3/uL (0-1.3); Platelet Count (auto) 90 10^3/uL (140-450)
[2024-07-05 06:02] LABS: Basophils % (auto) 0.8 % (0.0-2.0); Eosinophils % (auto) 0.5 % (0.0-7.0); Hematocrit 25.3 % (36.0-46.0); Lymphocytes % (auto) 10.8 % (10.0-50.0); Mean Corpuscular Hemoglobin 28.9 pg (28.0-32.0); Mean Corpuscular Hgb Conc. 31.8 g/dL (32.0-36.0); Mean Corpuscular Volume 90.8 fL (80.0-100.0); Monocytes % (auto) 7.8 % (0.0-12.0); Neutrophils # (auto) 11.2 10 ^3/uL (1.6-8.6); Neutrophils % (auto) 80.1 % (37.0-80.0); Red Blood Cells 2.79 10^6/uL (4.0-5.20); Red Cell Distribution Width 19.5 % (11.8-14.3)
[2024-07-05 08:44] LABS: Platelet Estimate Decreased
[2024-07-05] MEDS: SODIUM PHOSPHATES 20 MEQ in SODIUM CHL 0.9% 100 ML IV ONE (11:42)
[2024-07-05] MEDS: levoFLOXacin 500MG 100 ML IV SCH (13:41)
[2024-07-05] MEDS: TPN PER PHARMACY IV NR (20:20)
[2024-07-06] VITALS (34 sets, daily range): BP systolic 85–159; BP diastolic 29–77; PULSE 84–107; RESP 9–25; TEMP 98.1–99.9; O2SAT 95–100
[2024-07-06 04:21] LABS: Hemoglobin 8.3 g/dL (12.2-16.2); Red Cell Distribution Width 19.1 % (11.8-14.3)
[2024-07-06 04:23] LABS: Mean Corpuscular Hemoglobin 28.5 pg (28.0-32.0); Mean Corpuscular Hgb Conc. 31.7 g/dL (32.0-36.0); Mean Corpuscular Volume 89.9 fL (80.0-100.0); Platelet Count (auto) 89 10^3/uL (140-450); White Blood Cell 11.2 10^3/uL (4.4-10.8)
[2024-07-06 04:25] LABS: Basophils % (manual) 0 (0.0-2.0); Blast Cells 0; Eosinophils % (manual) 0 (0-7); Metamyelocytes % 0; Myelocytes % 0; Promyelocytes % 0; Reactive Lymphocytes 0
[2024-07-06 04:33] LABS: Alanine Aminotransferase 19 U/L (7-40); Alkaline Phosphatase 223 U/L (46-116); Calcium 7.9 mg/dL (8.7-10.4); Carbon Dioxide 30 mmol/L (20-30); Chloride 105 mmol/L (98-107)
[2024-07-06 04:34] LABS: Albumin 2.5 g/dL (3.2-4.8); Anion Gap 3 (5-15); Aspartate Aminotransferase 16 U/L (13-40); BUN/Creatinine Ratio 42.5 (10.0-20.0); Bilirubin, Total 0.3 mg/dL (0.2-1.0); Blood Urea Nitrogen 17 mg/dL (9-23); Glucose 113 mg/dL (74-106); Magnesium 1.9 mg/dL (1.6-2.6); Phosphorus 2.5 mg/dL (2.4-5.1); Potassium 3.7 mmol/L (3.5-5.1); Sodium 138 mmol/L (136-145)
[2024-07-06 06:14] LABS: Band Neutrophils % (manual) 1; Lymphocytes % (manual) 18 (10.0-50.0); Monocytes % (manual) 9 (0-12); Platelet Estimate Decreased
[2024-07-06] MEDS: SERTRALINE HCL 50 MG TAB PO SCH (17:25)
[2024-07-06] MEDS ORDERED: TPN PER PHARMACY IV NR (20:00)
[2024-07-07] VITALS (31 sets, daily range): BP systolic 115–159; BP diastolic 58–89; PULSE 79–105; RESP 10–28; TEMP 97.6–98.8; O2SAT 90–100
[2024-07-07 05:27] LABS: Hematocrit 26.3 % (36.0-46.0); Hemoglobin 8.7 g/dL (12.2-16.2); Mean Corpuscular Hgb Conc. 32.9 g/dL (32.0-36.0); Platelet Count (auto) 74 10^3/uL (140-450); Red Blood Cells 2.89 10^6/uL (4.0-5.20); Red Cell Distribution Width 19.2 % (11.8-14.3); White Blood Cell 9.8 10^3/uL (4.4-10.8)
[2024-07-07 05:35] LABS: Basophils % (manual) 0 (0.0-2.0); Blast Cells 0; Eosinophils % (manual) 0 (0-7); Metamyelocytes % 0; Myelocytes % 0; Promyelocytes % 0; Reactive Lymphocytes 0
[2024-07-07 05:50] LABS: Chloride 103 mmol/L (98-107); Potassium 3.8 mmol/L (3.5-5.1); Sodium 135 mmol/L (136-145)
[2024-07-07 05:51] LABS: Anion Gap 5 (5-15); Calcium 8.2 mg/dL (8.7-10.4); Carbon Dioxide 27 mmol/L (20-30)
[2024-07-07 05:56] LABS: BUN/Creatinine Ratio 31.7 (10.0-20.0); Blood Urea Nitrogen 13 mg/dL (9-23); Glucose 96 mg/dL (74-106)
[2024-07-07 06:26] LABS: Band Neutrophils % (manual) 3; Lymphocytes % (manual) 24 (10.0-50.0); Monocytes % (manual) 6 (0-12); Platelet Estimate Decreased
[2024-07-07] MEDS: FUROSEMIDE 20 MG/2 ML VIAL IV ONE (09:45)
[2024-07-07] MEDS: LEVALBUTEROL HCL 1.25 MG/3 ML NEB NEB ONE (10:46)
[2024-07-07 11:16] LABS: Hemoglobin 8.4 g/dL (12.2-16.2); White Blood Cell 8.7 10^3/uL (4.4-10.8)
[2024-07-07 11:17] LABS: Hematocrit 25.9 % (36.0-46.0); Mean Corpuscular Hemoglobin 29.3 pg (28.0-32.0); Mean Corpuscular Hgb Conc. 32.3 g/dL (32.0-36.0); Mean Corpuscular Volume 90.9 fL (80.0-100.0); Platelet Count (auto) 67 10^3/uL (140-450); Red Blood Cells 2.85 10^6/uL (4.0-5.20)
[2024-07-07 11:33] LABS: Basophils % (manual) 0 (0.0-2.0); Blast Cells 0; Myelocytes % 0; Promyelocytes % 0; Reactive Lymphocytes 0
[2024-07-07] MEDS ORDERED: LEVALBUTEROL HCL 1.25 MG/3 ML NEB NEB SCH (12:00)
[2024-07-07 12:23] LABS: Band Neutrophils % (manual) 2; Eosinophils % (manual) 2 (0-7); Lymphocytes % (manual) 19 (10.0-50.0); Metamyelocytes % 2; Monocytes % (manual) 5 (0-12)
[2024-07-07 12:24] LABS: Platelet Estimate Decreased
[2024-07-07] MEDS: LEVALBUTEROL HCL 1.25 MG/3 ML NEB NEB SCH (12:24)
[2024-07-08] VITALS (39 sets, daily range): BP systolic 128–166; BP diastolic 62–87; PULSE 81–99; RESP 10–29; TEMP 98–99.1; O2SAT 91–100
[2024-07-08] MEDS: METOCLOPRAMIDE HCL 5MG/ml INJ 2ml VIAL IV PRN (08:00)
[2024-07-08 08:22] LABS: Chloride 104 mmol/L (98-107); Potassium 3.2 mmol/L (3.5-5.1); Sodium 138 mmol/L (136-145)
[2024-07-08 08:24] LABS: Anion Gap 6 (5-15); Calcium 8.3 mg/dL (8.7-10.4); Carbon Dioxide 28 mmol/L (20-30)
[2024-07-08 08:29] LABS: Blood Urea Nitrogen 8 mg/dL (9-23); Glucose 82 mg/dL (74-106)
[2024-07-08] MEDS: MAGNESIUM SULFATE 1GM/100ML 100 ML IV ONE (14:44)
[2024-07-08] MEDS: metroNIDAZOLE 500 MG TAB PO SCH (14:44)
[2024-07-08] MEDS: POTASSIUM CHL 20MEQ/100ML 100 ML IV SCH (14:46)
[2024-07-08] MEDS ORDERED: FUROSEMIDE 40 MG/4 ML VIAL IV ONE (17:30)
[2024-07-08] MEDS: FUROSEMIDE 20 MG/2 ML VIAL IV ONE (17:56)
[2024-07-09] VITALS (30 sets, daily range): BP systolic 122–180; BP diastolic 63–106; PULSE 91–110; RESP 11–25; TEMP 97.8–98.8; O2SAT 91–100
[2024-07-09 05:21] LABS: Alanine Aminotransferase 11 U/L (7-40); Alkaline Phosphatase 207 U/L (46-116); Anion Gap 7 (5-15); Aspartate Aminotransferase 14 U/L (13-40); BUN/Creatinine Ratio 10.6 (10.0-20.0); Blood Urea Nitrogen 5 mg/dL (9-23); Calcium 8.4 mg/dL (8.7-10.4); Carbon Dioxide 27 mmol/L (20-30); Chloride 104 mmol/L (98-107); Glucose 79 mg/dL (74-106); Potassium 3.2 mmol/L (3.5-5.1); Sodium 138 mmol/L (136-145)
[2024-07-09 05:22] LABS: Bilirubin, Total 0.4 mg/dL (0.2-1.0); Total Protein 5.8 g/dL (5.7-8.2)
[2024-07-09] MEDS ORDERED: POTASSIUM EFFERVESENT TAB 25 MEQ PO ONE (10:00)
[2024-07-09] MEDS ORDERED: LEVALBUTEROL HCL 1.25 MG/3 ML NEB NEB SCH ×2 (10:00→12:00)
[2024-07-09] MEDS: BUDESONIDE (INHALATION) 0.5 MG/2 ML NEB NEB SCH (10:00)
[2024-07-09] MEDS ORDERED: ACETAMINOPHEN 500 MG TAB PO PRN ×2 (10:00)
[2024-07-09] MEDS: LEVALBUTEROL HCL 1.25 MG/3 ML NEB ONE (10:03)
[2024-07-09] MEDS: BUDESONIDE (INHALATION) 0.5 MG/2 ML NEB ONE (10:04)
[2024-07-09] MEDS: MAGNESIUM SULFATE 1GM/100ML 100 ML IV ONE (10:48)
[2024-07-09] MEDS: IPRATROPIUM BROM 0.5 MG/2.5ML INH SOL NEB SCH (12:05)
[2024-07-09] MEDS: POTASSIUM CHL 20MEQ/100ML 100 ML IV SCH (14:18)
[2024-07-09] MEDS: metroNIDAZOLE 500MG/100ML 100 ML IV SCH (14:18)
[2024-07-09] MEDS ORDERED: PPN PER PHARMACY 0 ML IV SCH (15:45)
[2024-07-09] MEDS: ACETYLCYSTEINE 10 %(100MG/ML) SOL 4ML NEB SCH (18:33)
[2024-07-09] MEDS: LEVALBUTEROL HCL 1.25 MG/3 ML NEB NEB SCH (18:33)
[2024-07-09] MEDS: AMINO ACID INFUSION IN D10W 1,000 ML IV NR (20:17)
[2024-07-10] VITALS (20 sets, daily range): BP systolic 139–175; BP diastolic 56–92; PULSE 75–102; RESP 12–28; TEMP 97.8–98.8; O2SAT 89–100
[2024-07-10] MEDS ORDERED: DEXTROSE (50%) 50ML SYRG IV SCH
[2024-07-10] MEDS: InsuLIN REG 1unit/0.01ml Soln (100units/ml) SC SCH
[2024-07-10] MEDS: ACCU-CHEK COMFORT CURVE STRIP VI SCH (00:13)
[2024-07-10 05:35] LABS: Albumin 3.1 g/dL (3.2-4.8); Alkaline Phosphatase 186 U/L (46-116); Anion Gap 7 (5-15); Aspartate Aminotransferase 9 U/L (13-40); BUN/Creatinine Ratio 12.8 (10.0-20.0); Blood Urea Nitrogen 6 mg/dL (9-23); Calcium 8.3 mg/dL (8.7-10.4); Carbon Dioxide 26 mmol/L (20-30); Chloride 104 mmol/L (98-107); Glucose 121 mg/dL (74-106); Magnesium 1.5 mg/dL (1.6-2.6); Phosphorus 2.9 mg/dL (2.4-5.1); Potassium 3.1 mmol/L (3.5-5.1); Sodium 137 mmol/L (136-145)
[2024-07-10 05:36] LABS: Bilirubin, Total 0.4 mg/dL (0.2-1.0); Total Protein 5.9 g/dL (5.7-8.2)
[2024-07-10 05:39] LABS: Basophils # (auto) 0.1 10 ^3/uL (0-0.2); Basophils % (auto) 1.3 % (0.0-2.0); Eosinophils # (auto) 0 10 ^3/uL (0-0.8); Eosinophils % (auto) 0.2 % (0.0-7.0); Hematocrit 28.3 % (36.0-46.0); Hemoglobin 9.2 g/dL (12.2-16.2); Lymphocytes # (auto) 1.5 10 ^3/uL (0.4-5.4); Lymphocytes % (auto) 13.1 % (10.0-50.0); Mean Corpuscular Hemoglobin 29.5 pg (28.0-32.0); Mean Corpuscular Hgb Conc. 32.5 g/dL (32.0-36.0); Mean Corpuscular Volume 90.7 fL (80.0-100.0); Monocytes # (auto) 0.7 10 ^3/uL (0-1.3); Neutrophils # (auto) 8.8 10 ^3/uL (1.6-8.6); Neutrophils % (auto) 79.4 % (37.0-80.0); Nucleated Red Blood Cells % 0.1 %; Platelet Count (auto) 92 10^3/uL (140-450); Red Blood Cells 3.12 10^6/uL (4.0-5.20); White Blood Cell 11.1 10^3/uL (4.4-10.8)
[2024-07-10 05:43] LABS: Alanine Aminotransferase 9 U/L (7-40)
[2024-07-10 05:53] LABS: Triglycerides 152 mg/dL (< 150)
[2024-07-10] MEDS: POTASSIUM CHL 20MEQ/100ML 100 ML IV ONE ×2 (07:39→11:33)
[2024-07-10] MEDS: MAGNESIUM SULFATE 1GM/100ML 100 ML IV SCH ×2 (07:39→13:00)
[2024-07-10] MEDS: MORPHINE SULFATE INJ 2 MG/ml SYRG IV PRN ×2 (09:08→16:00)
[2024-07-10] MEDS: POTASSIUM EFFERVESENT TAB 25 MEQ PO SCH (10:00)
[2024-07-10] MEDS ORDERED: MAGNESIUM OXIDE 400 MG TAB PO SCH (10:00)
[2024-07-10] MEDS ORDERED: MORPHINE SULFATE INJ 2 MG/ml SYRG IV PRN (10:45)
[2024-07-10] MEDS ORDERED: TPN PER PHARMACY 0 ML IV SCH (10:45)
[2024-07-10] MEDS: FUROSEMIDE 20 MG/2 ML VIAL IV ONE (11:34)
[2024-07-10] MEDS: SODIUM PHOSPHATES 20 MEQ in SODIUM CHL 0.9% 100 ML IV ONE (13:00)
[2024-07-10] MEDS: METOCLOPRAMIDE HCL 5MG/ml INJ 2ml VIAL IV SCH (14:00)
[2024-07-10] MEDS: GASTROGRAFIN 120 ML SOL ONE (14:48)
[2024-07-10] MEDS: LABETALOL HCL 20 MG/4 ML VL IV PRN (18:30)
[2024-07-10] MEDS: TPN PER PHARMACY IV NR (19:55)
[2024-07-11] VITALS (30 sets, daily range): BP systolic 122–164; BP diastolic 45–69; PULSE 74–100; RESP 14–25; TEMP 97.5–99.7; O2SAT 92–100
[2024-07-11 05:02] LABS: Basophils # (auto) 0.1 10 ^3/uL (0-0.2); Basophils % (auto) 0.9 % (0.0-2.0); Eosinophils # (auto) 0 10 ^3/uL (0-0.8); Eosinophils % (auto) 0.2 % (0.0-7.0); Hematocrit 28.1 % (36.0-46.0); Lymphocytes # (auto) 1.3 10 ^3/uL (0.4-5.4); Mean Corpuscular Hemoglobin 29.2 pg (28.0-32.0); Mean Corpuscular Hgb Conc. 32.2 g/dL (32.0-36.0); Mean Corpuscular Volume 90.9 fL (80.0-100.0); Monocytes # (auto) 0.7 10 ^3/uL (0-1.3); Neutrophils # (auto) 9.8 10 ^3/uL (1.6-8.6); Neutrophils % (auto) 81.9 % (37.0-80.0); Platelet Count (auto) 98 10^3/uL (140-450); White Blood Cell 11.9 10^3/uL (4.4-10.8)
[2024-07-11 05:18] LABS: Chloride 106 mmol/L (98-107); Potassium 2.9 mmol/L (3.5-5.1); Sodium 138 mmol/L (136-145)
[2024-07-11 05:19] LABS: Anion Gap 6 (5-15); Calcium 8.3 mg/dL (8.7-10.4); Carbon Dioxide 26 mmol/L (20-30)
[2024-07-11 05:24] LABS: BUN/Creatinine Ratio 23.4 (10.0-20.0); Blood Urea Nitrogen 11 mg/dL (9-23); Glucose 155 mg/dL (74-106)
[2024-07-11 05:25] LABS: Magnesium 1.8 mg/dL (1.6-2.6)
[2024-07-11 05:26] LABS: Phosphorus 3.8 mg/dL (2.4-5.1)
[2024-07-11] MEDS: POTASSIUM CHL 20MEQ/100ML 100 ML IV ONE (07:10)
[2024-07-11] MEDS: POTASSIUM CHL 20MEQ/100ML 100 ML IV SCH (10:19)
[2024-07-11] MEDS: FUROSEMIDE 20 MG/2 ML VIAL IV ONE (10:54)
[2024-07-11] MEDS: TPN PER PHARMACY IV NR (19:43)
[2024-07-12] VITALS (40 sets, daily range): BP systolic 119–165; BP diastolic 35–93; PULSE 72–98; RESP 14–27; TEMP 97.6–98.9; O2SAT 95–100
[2024-07-12 05:14] LABS: Basophils # (auto) 0.1 10 ^3/uL (0-0.2); Eosinophils # (auto) 0.1 10 ^3/uL (0-0.8); Eosinophils % (auto) 0.6 % (0.0-7.0); Hematocrit 27.2 % (36.0-46.0); Lymphocytes # (auto) 1.7 10 ^3/uL (0.4-5.4); Lymphocytes % (auto) 15.2 % (10.0-50.0); Mean Corpuscular Hemoglobin 29.9 pg (28.0-32.0); Mean Corpuscular Volume 90.5 fL (80.0-100.0); Monocytes # (auto) 0.6 10 ^3/uL (0-1.3); Monocytes % (auto) 5.4 % (0.0-12.0); Neutrophils # (auto) 8.9 10 ^3/uL (1.6-8.6); Neutrophils % (auto) 77.8 % (37.0-80.0); Platelet Count (auto) 94 10^3/uL (140-450); Red Blood Cells 3.01 10^6/uL (4.0-5.20); Red Cell Distribution Width 18.6 % (11.8-14.3); White Blood Cell 11.5 10^3/uL (4.4-10.8)
[2024-07-12 05:22] LABS: Albumin 2.8 g/dL (3.2-4.8); Alkaline Phosphatase 140 U/L (46-116); Anion Gap 7 (5-15); Aspartate Aminotransferase 10 U/L (13-40); BUN/Creatinine Ratio 30.4 (10.0-20.0); Bilirubin, Total 0.2 mg/dL (0.2-1.0); Blood Urea Nitrogen 14 mg/dL (9-23); Calcium 8.5 mg/dL (8.7-10.4); Carbon Dioxide 23 mmol/L (20-30); Chloride 107 mmol/L (98-107); Glucose 145 mg/dL (74-106); Magnesium 2.1 mg/dL (1.6-2.6); Phosphorus 3.3 mg/dL (2.4-5.1); Potassium 3.1 mmol/L (3.5-5.1); Sodium 137 mmol/L (136-145); Total Protein 5.6 g/dL (5.7-8.2)
[2024-07-12 05:23] LABS: Alanine Aminotransferase < 9 U/L (7-40)
[2024-07-12] MEDS ORDERED: Jevity 1.2 Cal/Fiber 1 Liter GT SCH (10:30)
[2024-07-12] MEDS: POTASSIUM CHL 20MEQ/100ML 100 ML IV SCH (10:53)
[2024-07-12] MEDS ORDERED: TPN PER PHARMACY IV NR (20:00)
[2024-07-13] VITALS (31 sets, daily range): BP systolic 133–179; BP diastolic 41–97; PULSE 85–98; RESP 15–24; TEMP 97.4–98.7; O2SAT 98–100
[2024-07-13 05:53] LABS: Basophils # (auto) 0.1 10 ^3/uL (0-0.2); Basophils % (auto) 0.9 % (0.0-2.0); Eosinophils # (auto) 0.1 10 ^3/uL (0-0.8); Hematocrit 27.3 % (36.0-46.0); Hemoglobin 9.1 g/dL (12.2-16.2); Lymphocytes # (auto) 1.8 10 ^3/uL (0.4-5.4); Lymphocytes % (auto) 19.5 % (10.0-50.0); Mean Corpuscular Hemoglobin 30.3 pg (28.0-32.0); Mean Corpuscular Hgb Conc. 33.4 g/dL (32.0-36.0); Mean Corpuscular Volume 90.7 fL (80.0-100.0); Monocytes # (auto) 0.5 10 ^3/uL (0-1.3); Monocytes % (auto) 5.2 % (0.0-12.0); Neutrophils # (auto) 6.8 10 ^3/uL (1.6-8.6); Neutrophils % (auto) 73.4 % (37.0-80.0); Nucleated Red Blood Cells % 0.1 %; Platelet Count (auto) 107 10^3/uL (140-450); Red Blood Cells 3.01 10^6/uL (4.0-5.20); Red Cell Distribution Width 19.5 % (11.8-14.3); White Blood Cell 9.3 10^3/uL (4.4-10.8)
[2024-07-13 06:05] LABS: Anion Gap 8 (5-15); Carbon Dioxide 23 mmol/L (20-30); Chloride 109 mmol/L (98-107); Potassium 3.5 mmol/L (3.5-5.1); Sodium 140 mmol/L (136-145)
[2024-07-13 06:07] LABS: Calcium 8.5 mg/dL (8.7-10.4)
[2024-07-13 06:11] LABS: Glucose 88 mg/dL (74-106)
[2024-07-13 06:12] LABS: BUN/Creatinine Ratio 32.6 (10.0-20.0); Blood Urea Nitrogen 14 mg/dL (9-23); Magnesium 1.7 mg/dL (1.6-2.6)
[2024-07-13] MEDS ORDERED: CLINIMIX PER PHARMACY 0 ML IV SCH ×2 (10:30→10:45)
[2024-07-13] MEDS: METOCLOPRAMIDE HCL 5MG/ml INJ 2ml VIAL IV ONE (10:49)
[2024-07-13] MEDS: GOLYTELY 4L KIT PO ONE (11:39)
[2024-07-13] MEDS: METOCLOPRAMIDE HCL 5MG/ml INJ 2ml VIAL IV SCH (14:35)
[2024-07-13] MEDS: AMINO ACID INFUSION IN D10W 1,000 ML IV SCH (19:53)
[2024-07-14] VITALS (26 sets, daily range): BP systolic 117–168; BP diastolic 45–76; PULSE 78–101; RESP 12–22; TEMP 97.8–99.7; O2SAT 96–100
[2024-07-14 05:24] LABS: INR 1.12 (0.9-1.15); Partial Thromboplastin Time 25.6 SEC (24.5-34.5); Prothrombin Time 11.8 sec (9.3-11.8)
[2024-07-14 05:29] LABS: Alkaline Phosphatase 134 U/L (46-116); Anion Gap 7 (5-15); Aspartate Aminotransferase 11 U/L (13-40); Blood Urea Nitrogen 8 mg/dL (9-23); Calcium 8.4 mg/dL (8.7-10.4); Carbon Dioxide 24 mmol/L (20-30); Chloride 108 mmol/L (98-107); Glucose 127 mg/dL (74-106); Magnesium 1.3 mg/dL (1.6-2.6); Potassium 3.1 mmol/L (3.5-5.1); Sodium 139 mmol/L (136-145)
[2024-07-14 05:30] LABS: Bilirubin, Total 0.3 mg/dL (0.2-1.0); Phosphorus 3.6 mg/dL (2.4-5.1); Total Protein 5.8 g/dL (5.7-8.2)
[2024-07-14 05:34] LABS: Alanine Aminotransferase < 9 U/L (7-40)
[2024-07-14] MEDS: POLYETHYLENE GLYCOL 17 GM PWDR PO ONE (05:45)
[2024-07-14] MEDS: GOLYTELY 4L KIT PO ONE (05:46)
[2024-07-14] MEDS ORDERED: MAGNESIUM CITRATE SOLUTION 300 ML BTL PO ONE (06:00)
[2024-07-14 07:40] LABS: Basophils # (auto) 0.1 10 ^3/uL (0-0.2); Eosinophils # (auto) 0.1 10 ^3/uL (0-0.8); Eosinophils % (auto) 0.6 % (0.0-7.0); Hematocrit 26.3 % (36.0-46.0); Hemoglobin 8.7 g/dL (12.2-16.2); Lymphocytes # (auto) 1.4 10 ^3/uL (0.4-5.4); Lymphocytes % (auto) 15.1 % (10.0-50.0); Mean Corpuscular Hemoglobin 30.3 pg (28.0-32.0); Mean Corpuscular Hgb Conc. 33.2 g/dL (32.0-36.0); Mean Corpuscular Volume 91.2 fL (80.0-100.0); Monocytes # (auto) 0.6 10 ^3/uL (0-1.3); Monocytes % (auto) 6.3 % (0.0-12.0); Platelet Count (auto) 117 10^3/uL (140-450); Red Blood Cells 2.88 10^6/uL (4.0-5.20); Red Cell Distribution Width 19.3 % (11.8-14.3); White Blood Cell 9.1 10^3/uL (4.4-10.8)
[2024-07-14] MEDS: POTASSIUM CHL 20MEQ/100ML 100 ML IV SCH (07:59)
[2024-07-14] MEDS: MAGNESIUM SULFATE 1GM/100ML 100 ML IV ONE ×2 (07:59→16:23)
[2024-07-14] MEDS ORDERED: MIDAZOLAM HCL 2MG/2ML 2ml VIAL (1mg/ml) ONE (13:28)
[2024-07-14] MEDS ORDERED: fentaNYL CITRATE 100 MCG/2 ML VL ONE (13:28)
[2024-07-14] MEDS ORDERED: LIDOCAINE 2% (LOCAL ANESTH.) PF 5ml SDV ONE (13:30)
[2024-07-14] MEDS ORDERED: ONDANSETRON HCL 4 MG/2 ML VIAL ONE (14:05)
[2024-07-14] MEDS ORDERED: PROPOFOL 10 MG/ML 20 ML IV ONE (14:08)
[2024-07-15] VITALS (32 sets, daily range): BP systolic 120–175; BP diastolic 46–72; PULSE 75–101; RESP 15–23; TEMP 97.9–98.8; O2SAT 96–100
[2024-07-15 05:08] LABS: Basophils # (auto) 0.1 10 ^3/uL (0-0.2); Eosinophils # (auto) 0.1 10 ^3/uL (0-0.8); Eosinophils % (auto) 0.8 % (0.0-7.0); Hematocrit 29.6 % (36.0-46.0); Hemoglobin 9.4 g/dL (12.2-16.2); Lymphocytes % (auto) 30.2 % (10.0-50.0); Mean Corpuscular Hemoglobin 29.6 pg (28.0-32.0); Mean Corpuscular Hgb Conc. 31.7 g/dL (32.0-36.0); Mean Corpuscular Volume 93.2 fL (80.0-100.0); Monocytes # (auto) 0.5 10 ^3/uL (0-1.3); Monocytes % (auto) 7.7 % (0.0-12.0); Neutrophils # (auto) 4.1 10 ^3/uL (1.6-8.6); Neutrophils % (auto) 60.3 % (37.0-80.0); Nucleated Red Blood Cells % 0.1 %; Platelet Count (auto) 117 10^3/uL (140-450); Red Blood Cells 3.17 10^6/uL (4.0-5.20); Red Cell Distribution Width 19.2 % (11.8-14.3); White Blood Cell 6.8 10^3/uL (4.4-10.8)
[2024-07-15 05:22] LABS: Alkaline Phosphatase 131 U/L (46-116); Anion Gap 6 (5-15); Aspartate Aminotransferase 31 U/L (13-40); Calcium 8.8 mg/dL (8.7-10.4); Carbon Dioxide 22 mmol/L (20-30); Chloride 107 mmol/L (98-107); Glucose 108 mg/dL (74-106); Magnesium 1.7 mg/dL (1.6-2.6); Potassium 3.8 mmol/L (3.5-5.1); Sodium 135 mmol/L (136-145)
[2024-07-15 05:23] LABS: Phosphorus 3.7 mg/dL (2.4-5.1)
[2024-07-15 05:24] LABS: Alanine Aminotransferase < 9 U/L (7-40); BUN/Creatinine Ratio 10.4 (10.0-20.0); Blood Urea Nitrogen < 5 mg/dL (9-23); Total Protein 5.9 g/dL (5.7-8.2)
[2024-07-15 05:26] LABS: Bilirubin, Total 0.3 mg/dL (0.2-1.0)
[2024-07-15] MEDS: MAGNESIUM SULFATE 1GM/100ML 100 ML IV SCH (17:37)
[2024-07-16] VITALS (30 sets, daily range): BP systolic 129–158; BP diastolic 46–63; PULSE 74–103; RESP 15–25; TEMP 98.1–98.4; O2SAT 95–100
[2024-07-16 04:51] LABS: Albumin 2.9 g/dL (3.2-4.8); Alkaline Phosphatase 117 U/L (46-116); Anion Gap 6 (5-15); Aspartate Aminotransferase 13 U/L (13-40); BUN/Creatinine Ratio 15.2 (10.0-20.0); Blood Urea Nitrogen 7 mg/dL (9-23); Calcium 8.5 mg/dL (8.7-10.4); Carbon Dioxide 26 mmol/L (20-30); Chloride 107 mmol/L (98-107); Glucose 112 mg/dL (74-106); Magnesium 1.6 mg/dL (1.6-2.6); Phosphorus 3.7 mg/dL (2.4-5.1); Potassium 3.2 mmol/L (3.5-5.1); Sodium 139 mmol/L (136-145)
[2024-07-16 04:52] LABS: Bilirubin, Total 0.3 mg/dL (0.2-1.0); Total Protein 5.5 g/dL (5.7-8.2)
[2024-07-16 04:54] LABS: Alanine Aminotransferase < 9 U/L (7-40)
[2024-07-16] MEDS: MAGNESIUM SULFATE 1GM/100ML 100 ML IV SCH (11:01)
[2024-07-16] MEDS: POTASSIUM CHL 20MEQ/100ML 100 ML IV SCH (11:58)
[2024-07-17] VITALS (29 sets, daily range): BP systolic 120–170; BP diastolic 47–72; PULSE 85–103; RESP 14–23; TEMP 98.2–98.6; O2SAT 93–100
[2024-07-17 06:47] LABS: Alanine Aminotransferase 10 U/L (7-40); Albumin 2.8 g/dL (3.2-4.8); Alkaline Phosphatase 131 U/L (46-116); Anion Gap 5 (5-15); Aspartate Aminotransferase 12 U/L (13-40); BUN/Creatinine Ratio 13.6 (10.0-20.0); Bilirubin, Total 0.3 mg/dL (0.2-1.0); Blood Urea Nitrogen 6 mg/dL (9-23); Calcium 8.6 mg/dL (8.7-10.4); Carbon Dioxide 26 mmol/L (20-30); Chloride 108 mmol/L (98-107); Glucose 107 mg/dL (74-106); Magnesium 1.5 mg/dL (1.6-2.6); Phosphorus 3.2 mg/dL (2.4-5.1); Potassium 3.2 mmol/L (3.5-5.1); Sodium 139 mmol/L (136-145); Total Protein 5.2 g/dL (5.7-8.2)
[2024-07-17] MEDS: MAGNESIUM SULFATE 1GM/100ML 100 ML IV SCH (11:51)
[2024-07-17] MEDS: POTASSIUM CHL 20MEQ/100ML 100 ML IV SCH (11:57)
[2024-07-17] MEDS ORDERED: POTASSIUM CHL 20MEQ/100ML 100 ML IV SCH (13:00)
[2024-07-17] MEDS ORDERED: KETAMINE 50mg/ML 1ml syringe IV ONE (13:15)
[2024-07-18] VITALS (30 sets, daily range): BP systolic 146–168; BP diastolic 67–96; PULSE 76–92; RESP 15–24; TEMP 98.3–98.7; O2SAT 94–100
[2024-07-18 05:28] LABS: Alanine Aminotransferase 10 U/L (7-40); Alkaline Phosphatase 123 U/L (46-116); Anion Gap 3 (5-15); Aspartate Aminotransferase 12 U/L (13-40); BUN/Creatinine Ratio 14.3 (10.0-20.0); Bilirubin, Total 0.3 mg/dL (0.2-1.0); Blood Urea Nitrogen 6 mg/dL (9-23); Calcium 9.1 mg/dL (8.7-10.4); Carbon Dioxide 27 mmol/L (20-30); Chloride 107 mmol/L (98-107); Glucose 110 mg/dL (74-106); Magnesium 1.5 mg/dL (1.6-2.6); Phosphorus 3.1 mg/dL (2.4-5.1); Potassium 3.2 mmol/L (3.5-5.1); Sodium 137 mmol/L (136-145); Total Protein 5.7 g/dL (5.7-8.2)
[2024-07-18] MEDS: MAGNESIUM SULFATE 1GM/100ML 100 ML IV SCH (06:45)
[2024-07-18] MEDS: POTASSIUM CHL 20MEQ/100ML 100 ML IV ONE ×2 (06:45→10:53)
[2024-07-19] VITALS (33 sets, daily range): BP systolic 131–182; BP diastolic 67–95; PULSE 81–106; RESP 15–23; TEMP 98.1–98.7; O2SAT 96–100
[2024-07-19 05:28] LABS: Alanine Aminotransferase < 9 U/L (7-40); Albumin 3.2 g/dL (3.2-4.8); Alkaline Phosphatase 125 U/L (46-116); Anion Gap 7 (5-15); Aspartate Aminotransferase 14 U/L (13-40); BUN/Creatinine Ratio 17.5 (10.0-20.0); Bilirubin, Total 0.3 mg/dL (0.2-1.0); Blood Urea Nitrogen 7 mg/dL (9-23); Carbon Dioxide 23 mmol/L (20-30); Chloride 106 mmol/L (98-107); Glucose 109 mg/dL (74-106); Magnesium 1.4 mg/dL (1.6-2.6); Phosphorus 3.1 mg/dL (2.4-5.1); Potassium 3.3 mmol/L (3.5-5.1); Sodium 136 mmol/L (136-145); Total Protein 5.9 g/dL (5.7-8.2)
[2024-07-19 05:37] LABS: Hematocrit 27.8 % (36.0-46.0); Hemoglobin 9.4 g/dL (12.2-16.2); Mean Corpuscular Hemoglobin 30.6 pg (28.0-32.0); Mean Corpuscular Hgb Conc. 33.9 g/dL (32.0-36.0); Mean Corpuscular Volume 90.4 fL (80.0-100.0); Platelet Count (auto) 90 10^3/uL (140-450); Red Blood Cells 3.08 10^6/uL (4.0-5.20); Red Cell Distribution Width 18.5 % (11.8-14.3)
[2024-07-19 05:49] LABS: Band Neutrophils % (manual) 0; Basophils % (manual) 0 (0.0-2.0); Blast Cells 0; Metamyelocytes % 0; Promyelocytes % 0; Reactive Lymphocytes 0
[2024-07-19 06:48] LABS: Eosinophils % (manual) 1 (0-7); Lymphocytes % (manual) 28 (10.0-50.0); Monocytes % (manual) 7 (0-12); Myelocytes % 1
[2024-07-19 06:49] LABS: Anisocytosis Slight; Large Platelets FEW; Platelet Estimate Decreased; Stomatocytes Few
[2024-07-19] MEDS: MAGNESIUM SULFATE 1GM/100ML 100 ML IV ONE (06:54)
[2024-07-19] MEDS: POTASSIUM CHL 20MEQ/100ML 100 ML IV ONE ×2 (06:55→13:49)
[2024-07-19] MEDS ORDERED: POTASSIUM CHL 20MEQ/100ML 100 ML IV SCH (14:00)
[2024-07-19] MEDS ORDERED: MAGNESIUM SULFATE 1GM/100ML 100 ML IV ONE (18:00)
[2024-07-20] VITALS (36 sets, daily range): BP systolic 125–168; BP diastolic 69–100; PULSE 77–106; RESP 13–26; TEMP 98.2–98.8; O2SAT 95–100
[2024-07-20 05:19] LABS: Basophils # (auto) 0.2 10 ^3/uL (0-0.2); Basophils % (auto) 2.5 % (0.0-2.0); Eosinophils # (auto) 0.2 10 ^3/uL (0-0.8); Eosinophils % (auto) 2.1 % (0.0-7.0); Hematocrit 30.6 % (36.0-46.0); Hemoglobin 10.1 g/dL (12.2-16.2); Lymphocytes # (auto) 2.1 10 ^3/uL (0.4-5.4); Lymphocytes % (auto) 23.5 % (10.0-50.0); Mean Corpuscular Hemoglobin 29.8 pg (28.0-32.0); Mean Corpuscular Hgb Conc. 33.1 g/dL (32.0-36.0); Monocytes # (auto) 0.8 10 ^3/uL (0-1.3); Monocytes % (auto) 8.8 % (0.0-12.0); Neutrophils # (auto) 5.5 10 ^3/uL (1.6-8.6); Neutrophils % (auto) 63.1 % (37.0-80.0); Nucleated Red Blood Cells % 0.1 %; Platelet Count (auto) 86 10^3/uL (140-450); Red Cell Distribution Width 18.3 % (11.8-14.3); White Blood Cell 8.7 10^3/uL (4.4-10.8)
[2024-07-20 05:39] LABS: Albumin 3.2 g/dL (3.2-4.8); Alkaline Phosphatase 140 U/L (46-116); Anion Gap 5 (5-15); Aspartate Aminotransferase 13 U/L (13-40); BUN/Creatinine Ratio 19.1 (10.0-20.0); Bilirubin, Total 0.4 mg/dL (0.2-1.0); Blood Urea Nitrogen 9 mg/dL (9-23); Calcium 9.7 mg/dL (8.7-10.4); Carbon Dioxide 26 mmol/L (20-30); Chloride 104 mmol/L (98-107); Glucose 109 mg/dL (74-106); Magnesium 1.2 mg/dL (1.6-2.6); Phosphorus 2.8 mg/dL (2.4-5.1); Potassium 3.5 mmol/L (3.5-5.1); Sodium 135 mmol/L (136-145); Total Protein 6.1 g/dL (5.7-8.2)
[2024-07-20 05:42] LABS: Alanine Aminotransferase 9 U/L (7-40)
[2024-07-20] MEDS: MAGNESIUM SULFATE 1GM/100ML 100 ML IV SCH (09:12)
[2024-07-20] MEDS: POTASSIUM CHL 20MEQ/100ML 100 ML IV ONE (10:40)
[2024-07-21] VITALS (25 sets, daily range): BP systolic 114–151; BP diastolic 64–89; PULSE 79–95; RESP 12–22; TEMP 98.2–98.7; O2SAT 97–100
[2024-07-21 05:53] LABS: Alanine Aminotransferase 12 U/L (7-40); Albumin 3.3 g/dL (3.2-4.8); Alkaline Phosphatase 137 U/L (46-116); Anion Gap 6 (5-15); Aspartate Aminotransferase 13 U/L (13-40); Bilirubin, Total 0.4 mg/dL (0.2-1.0); Blood Urea Nitrogen 9 mg/dL (9-23); Calcium 9.6 mg/dL (8.7-10.4); Carbon Dioxide 26 mmol/L (20-30); Chloride 103 mmol/L (98-107); Glucose 125 mg/dL (74-106); Magnesium 1.5 mg/dL (1.6-2.6); Phosphorus 3.4 mg/dL (2.4-5.1); Potassium 3.2 mmol/L (3.5-5.1); Sodium 135 mmol/L (136-145); Total Protein 6.2 g/dL (5.7-8.2)
[2024-07-21] MEDS: POTASSIUM CHL 20MEQ/100ML 100 ML IV SCH (06:31)
[2024-07-21] MEDS: MAGNESIUM SULFATE 1GM/100ML 100 ML IV ONE (06:32)
== END 2024-07-21 16:25 | DRG 3 ==
LOC: ER 13:54 → TELE 20:34 → TELE-WESTW 04-18 04:32 → ICU WEST 05-08 16:50 → DOU IN ICU 06-11 21:50 → ICU CENTRL 06-29 16:24 → ICU WEST 06-30 16:20 → DOU IN ICU 07-06 14:49
PROVIDERS: ADMIT Internal Medicine; ATTEND Internal Medicine
PROC: 02HV33Z Insertion of Infusion Device into Superior Vena Cava, Percutaneous Approach (ICD-10-PCS; 2024-04-21)
PROC: B548ZZA Ultrasonography of Superior Vena Cava, Guidance (ICD-10-PCS; 2024-04-21)
PROC: 0BH17EZ Insertion of Endotracheal Airway into Trachea, Via Natural or Artificial Opening (ICD-10-PCS; 2024-05-08)
PROC: 0DNU0ZZ Release Omentum, Open Approach (ICD-10-PCS; 2024-05-08)
PROC: 5A1955Z Respiratory Ventilation, Greater than 96 Consecutive Hours (ICD-10-PCS; 2024-05-08)
PROC: 30233N1 Transfusion of Nonautologous Red Blood Cells into Peripheral Vein, Percutaneous Approach (ICD-10-PCS; 2024-05-08)
PROC: 0DB80ZZ Excision of Small Intestine, Open Approach (ICD-10-PCS; principal; 2024-05-08 09:38)
PROC: 0D1B0ZH Bypass Ileum to Cecum, Open Approach (ICD-10-PCS; 2024-05-09)
PROC: 02HV33Z Insertion of Infusion Device into Superior Vena Cava, Percutaneous Approach (ICD-10-PCS; 2024-05-19)
PROC: B548ZZA Ultrasonography of Superior Vena Cava, Guidance (ICD-10-PCS; 2024-05-19)
PROC: 02PYX3Z Removal of Infusion Device from Great Vessel, External Approach (ICD-10-PCS; 2024-05-19)
PROC: 02HV33Z Insertion of Infusion Device into Superior Vena Cava, Percutaneous Approach (ICD-10-PCS; 2024-05-30)
PROC: B548ZZA Ultrasonography of Superior Vena Cava, Guidance (ICD-10-PCS; 2024-05-30)
PROC: 0B110F4 Bypass Trachea to Cutaneous with Tracheostomy Device, Open Approach (ICD-10-PCS; 2024-06-02)
PROC: 0H97XZZ Drainage of Abdomen Skin, External Approach (ICD-10-PCS; 2024-07-04)
PROC: 0DB68ZX Excision of Stomach, Via Natural or Artificial Opening Endoscopic, Diagnostic (ICD-10-PCS; 2024-07-14)
PROC: 0DBN8ZX Excision of Sigmoid Colon, Via Natural or Artificial Opening Endoscopic, Diagnostic (ICD-10-PCS; 2024-07-14)
PROC: 0DB98ZX Excision of Duodenum, Via Natural or Artificial Opening Endoscopic, Diagnostic (ICD-10-PCS; 2024-07-14 13:22)
DX: A41.9 Sepsis, unspecified organism (principal); J69.0 Pneumonitis due to inhalation of food and vomit; K65.1 Peritoneal abscess; G92.8 Other toxic encephalopathy; R65.21 Severe sepsis with septic shock; J96.21 Acute and chronic respiratory failure with hypoxia; J96.22 Acute and chronic respiratory failure with hypercapnia; J15.69 Pneumonia due to other Gram-negative bacteria; K57.20 Diverticulitis of large intestine with perforation and abscess without bleeding; K56.7 Ileus, unspecified; K56.50 Intestinal adhesions [bands], unspecified as to partial versus complete obstruction; E44.0 Moderate protein-calorie malnutrition; Z68.41 Body mass index [BMI] 40.0-44.9, adult; E87.3 Alkalosis; R18.8 Other ascites; N30.00 Acute cystitis without hematuria; Z99.11 Dependence on respirator [ventilator] status; I10 Essential (primary) hypertension; K76.0 Fatty (change of) liver, not elsewhere classified; E78.5 Hyperlipidemia, unspecified; E66.01 Morbid (severe) obesity due to excess calories; E03.9 Hypothyroidism, unspecified; K52.9 Noninfective gastroenteritis and colitis, unspecified; E11.9 Type 2 diabetes mellitus without complications; E83.42 Hypomagnesemia; I48.91 Unspecified atrial fibrillation; R16.0 Hepatomegaly, not elsewhere classified; D75.839 Thrombocytosis, unspecified; E88.09 Other disorders of plasma-protein metabolism, not elsewhere classified; D64.9 Anemia, unspecified; K64.8 Other hemorrhoids; E87.70 Fluid overload, unspecified; D69.6 Thrombocytopenia, unspecified; B96.20 Unspecified Escherichia coli [E. coli] as the cause of diseases classified elsewhere; E87.6 Hypokalemia; Z68.37 Body mass index [BMI] 37.0-37.9, adult
CPT/HCPCS: 36415; 36569; 36600; 70450; 70551; 71045; 74018; 74176; 74177; 74250; 74270; 76080; 76705; 76937; 80048; 80053; 80061; 80069; 80202; 81001; 82565; 82728; 82805; 82962; 83036; 83540; 83550; 83605; 83735; 83880; 84100; 84443; 84478; 85007; 85014; 85018; 85025; 85027; 85610; 85730; 86850; 86900; 86901; 86920; 87040; 87070; 87075; 87077; 87081; 87086; 87088; 87186; 87205; 87493; 92507; 92610; 93005; 93306; 93970; 93971; 94002; 94003; 94640; 94668; 95819; 96361; 96365; 96366; 96375; 97110; 97116; 97163; 97530; A4605; C9113; G0378; J0692; J1100; J1450; J1756; J1815; J1956; J2001; J2185; J2250; J2405; J2470; J2543; J2704; J3480; J3490; J7060; J7131; P9047